=== PATIENT | female | born 1965 | race Caucasian/White ===

== ENCOUNTER 2016-09-21 16:02 | Emergency (ER) | payer MEDICARE, MEDICAID ==
[~2016-09-21 16:02] MED LIST: /ADVA50050 INH; /AUGM875TA OR; ACET500C; ACET65TA; ADV250INH INH; ADVAIR INH; ADVAIR PO; ADVAIR100 INHALATION; ALBU0.084 INH; ALBUTEROL INH; ALBUTEROL INHALATION; ALLEGRA-D PL; ALLEGRA180 PO; AMO500 PO; AZAT5TAB PO; BACT400T PO; CALC0.5C OR; CALCIUM ACETATE; CARVEDILOL PO; CHOLECALCIFEROL PO; CINA30TA PO; CLAR5CHW OR; CLARINEX PO; CLARITAN PO; CLARITIN10 PO; CORE3.12 OR; CYMB60CA3 PO; DIFL50TA; DOCU100C PO; DRIS50002 PO; FERR325T3 PO; FEXO30TA OR; FLORCAP10 PO; FLOVENT110 PO; HYDR10TA13 PO; IRON GLYCINATE PO; K-PHTAB2 PO; LEVOCETIRIZINE PO; LIDO4SO TOP; LYRI300C PO; MAGN400T5 PO; MELA0.02 PO; MULT1TAB8 PO; MULTTAB4 PO; MYLI40DR OR; NASONEX NASAL; OXYC-517 PO; OXYC1TAB15 PO; PAIN325T OR; PANT40TA2 PO; PERC7.5T8 OR; PHOS1TAB3 PO; PHOSLO667 MG; PHOSLO667 MG OR; PHOSLO667 MG PO; PREDNISO50 PO; PROVENTILI PO; RANI15TA PO; SENN8.6C PO; SEPT400T; SERT50TA2 OR; SEVE80TAB PO; SODI650T PO; SOMA350T OR; SUDA30TA OR; SUDOGEST PO; SYMB80INH INH; TACR1CAP3 PO; TACR5CAP4 PO; TIZA4CAP3 PO; TIZANIDINE PO; TYLENOL #3; VALG1TAB PO; VENTAER IN; VENTOLIN ROTAHALER INH; VENTOLININ INHALATION; VICO5TAB OR; VICO5TAB PO; VIT D 4000 PO; VITA10002 PO; VITA500047 PO; VITAMIN D PO; VITATAB11 PO; ZOLO100T OR; ZYRTEC10 PO; colace; colace PO; percocet PO; senekot PO
[2016-09-21] MEDS ORDERED: MORPHINE 4 MG/ML 1ML SYRINGE As Ordered ONE (17:56)
[2016-09-21] MEDS ORDERED: ONDANSETRON 4MG/2ML VIAL (J2405) As Ordered ONE (17:57)
[2016-09-21 18:23] LABS: MEAN CORPUSCULAR HEMOGLOBIN 28.6 pg (27.0-33.0); MEAN CORPUSCULAR VOLUME 89.4 fl (80.0-96.0); RED CELL DISTRIBUTION WIDTH 14.9 % (11.5-14.5); WHITE BLOOD COUNT 9.3 K/mm3 (4.0-10.0)
[2016-09-21 18:32] LABS: ALBUMIN 3.3 GM/DL (3.2-5.2); ALBUMIN/GLOBULIN RATIO 0.94 (1.00-1.93); BILIRUBIN,DIRECT 0.2 MG/DL (0.0-0.2); BILIRUBIN,TOTAL 0.3 MG/DL (0.2-1.0); CALCIUM LEVEL 8.4 MG/DL (8.5-10.1); CREATININE FOR GFR 1.56 MG/DL (0.55-1.02); GLOMERULAR FILTRATION RATE 37.4 (>51); POTASSIUM SERUM 3.9 MEQ/L (3.5-5.1); TOTAL PROTEIN 6.8 GM/DL (6.4-8.2)
[2016-09-21] MEDS ORDERED: CIPROFLOXACIN/D5W 400 MG/200 ML BAG (J0744) As Ordered ONE (19:00)
--- NOTE | 2016-09-21 19:31 | REP ---
CT abdomen and pelvis without contrast 09/21/2016: Clinical history: Biliary colic. The patient states right-sided abdominal pain. She is status post renal transplant and repair of the right spigelian hernia. Comparison: CT scan 09/26/2015. Technique: noncontrast images with coronal and sagittal reconstructions provided. CT abdomen: Lung bases show minimal linear atelectatic or fibrotic change lateral aspect left lower lobe but were otherwise clear. Heart not enlarged and no pericardial thickening or effusion. Liver is homogeneous and not enlarged and shows no hepatic mass or biliary dilatation. No splenomegaly or focal lesion. No ascites in the upper abdomen. Gallbladder is partially distended with transverse diameter of 5.1 cm. Length is at least 9 cm. There is no calcified gallstone. At the surgical site for prior spigelian hernia repair, there is soft tissue density abutting the hepatic flexure arising from it suggesting inflammatory change. The oblique muscles show infiltration and edema in all this is less prominent than on the CT in the 2016 a where there was evidence for a phlegmon and abscess in this region. I do not see air bubbles to suggest a perforation or definite abscess. No free air noted is noted in the abdomen and pelvis on lung window review of all CT slice levels. Pancreas shows no ductal dilatation. Has a few scattered calcifications which may reflect prior chronic pancreatitis. Adrenal glands are normal. Severely atrophic right kidney with left kidney absent. The adrenal glands intact are. Lobulated right renal cortex with significant scarring. No hydronephrosis, hydroureter or ureteral stone. Abundant stool in the right colon to hepatic flexure with scattered gas and small amounts of stool transverse colon with left colon with mild stool. No dilated small bowel loops. The aorta is without aneurysm and no periaortic or other retroperitoneal pathologic sized lymphadenopathy . There is a transplant kidney in the upper right pelvis low-lying on the psoas muscle. Surgical clips in similar position previous. No gross hydronephrosis. Pelvis: Better distended than on the previous study. No definite stones or postsurgical changes in the suprapubic region with surgical clips and scarring. Uterus is tilted towards the right and not grossly enlarged. The left ovary has a 2.7 cm cyst. Right ovary shows a dominant follicle about 2 cm. Distal left colon and sigmoid were unremarkable. There is no sign of colitis or diverticulitis in the left colon, sigmoid and rectum. There is no ventral hernia and no inguinal hernia but prior surgery in both inguinal regions noted. The bone windows show degenerative changes of the hips, SI joints, lumbar lower thoracic spine to a mild degree. There is bilateral spondylolysis at L5 with grade 2 spondylolisthesis of L5 upon S1, nearly grade 3. Impression: 1. A distended gallbladder without calcified gallstones. It measures at least 9.1 x 5.1 cm. No pericholecystic fluid or mass. Liver and spleen not enlarged. No biliary dilatation or ascites. 2. Inflammatory changes in the fat adjacent to the hepatic flexure and abutting the deep fascial covering of the oblique muscles that may be inflammatory change from colitis or other mass or phlegmon. I do not see air bubbles to suggest abscess. This is a much less severe appearance than 1 year ago when there was a phlegmon and abscess clearly present. 3. A transplant kidney in the right pelvis without hydronephrosis. Bilateral L5 spondylolysis with grade II spondylolisthesis. Signed by Darci Thomas MD 09/21/2016 08:06 P
--- NOTE | 2016-09-21 20:20 | EDDOCDS ---
Physician Documentation [facility] Name: Micki Dickens Age: 50 yrs Sex: Female : 1965 Arrival Date: 09/21/2016 Time: 16:02 Bed I4 / M4 Private MD: Armando Root A. Disposition: 09/21/16 19:34 Discharged to Home/Self Care. Impression: Urinary tract infection, site not specified - pyelonephritis. - Condition is Stable. - Discharge Instructions: Urinary Tract Infection. - Prescriptions for Cipro 500 mg Oral Tablet - take 1 tablet by ORAL route every 12 hours; 14 tablet. Zofran 4 mg Oral Tablet - take 1 tablet by ORAL route 4 times per day As needed; 10 tablet. - Medication Reconciliation, Local Pharmacy Hours form. - Follow up: Armando Root; When: 2 - 3 days; Reason: Recheck today's complaints, Continuance of care. - Problem is an ongoing problem. - Symptoms are unchanged. Historical: - Allergies: no known allergies; - Home Meds: 1. tacrolimus 5 mg oral cap 6 mg every 12 hours (Last dose: 09/21/2016 08:00) 2. azathioprine 50 mg Oral tab 2 tabs once daily (Last dose: 09/21/2016 08:00) 3. sensipar inahler daily out 4. ferrous sulfate 325 mg (65 mg iron) Oral TbEC daily (Last dose: 09/21/2016 08:00) 5. Vitamin D Oral 18257 unit Mon and Fri (Last dose: 09/21/2016 08:00) 6. Vitamin B-12 1,000 mcg Oral tab daily (Last dose: 09/21/2016 08:00) 7. ranitidine HCl 150 mg Oral cap 1 cap 2 times per day (Last dose: 09/21/2016 08:00) 8. L-Mcaz-Wtqgkbo 155-852-130 mg BID Oral (Last dose: 09/21/2016 08:00) 9. multivitamin Oral tab 1 tab daily (Last dose: 09/21/2016 08:00) 10. sodium bicarbonate 650 mg Oral tab three times a day (Last dose: 09/21/2016 08:00) 11. duloxetine 60 mg Oral cpDR 1 cap once daily (Last dose: 09/21/2016 08:00) 12. pregabalin 150 mg oral cap 2 times per day (Last dose: 09/21/2016 08:00) 13. tizanidine 4 mg oral tab 1 tab as needed (Last dose: 09/21/2016 08:00) 14. tacrolimus 1 mg oral cap every 12 hours 15. melatonin 3 mg Oral tab (Last dose: Unknown) 16. oxycodone 5 mg Oral tab 1 tab every 4h as needed 17. oxycodone-acetaminophen 7.5-325 mg Oral tab 1 tab every 6 hours (Last dose: 09/21/2016 14:30) 18. docusate sodium 100 mg Oral tab 1 tab 2 times per day (Last dose: Unknown) 19. magnesium oxide 400 mg Oral cap twice a day (Last dose: 09/21/2016 10:00) 20. budeesonide-fomoterol 80-4.5-2 puffs BID (Last dose: 09/21/2016 08:00) - PMHx: MRSA; Hypertension; Depression; Asthma; - PSHx: Kidney stents; Laparoscopy; ankle surgery; Hernia repair- Incisional; kidney transplant --right side; - Social history: Smoking status: Patient states was never smoker of tobacco. Patient/guardian denies using alcohol, street drugs, No barriers to communication noted, The patient speaks fluent Korean, Speaks appropriately for age. - Family history: Not pertinent. - : The pt / caregiver states he / she is not on anticoagulants. Home medication list is obtained from the patient. - Exposure Risk Screening:: None identified. 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 4 in. (162.56 cm); Pain 10/10; 18:47 BP 127 / 58; Pulse 84; Resp 16; Temp 96.8(O); Pulse Ox 99% on R/A; Pain 5/10; jrd 20:17 BP 116 / 66; Pulse 85; Resp 17; Temp 97(O); Pulse Ox 97% ; mb9 16:03 Body Mass Index 35.36 (93.44 kg, 162.56 cm) cmb MDM: 17:38 IV Saline Lock ordered. ke 17:38 NS 0.9% 1000 ml IV at 100 mL/hr continuous ordered. ke 17:38 Ondansetron 4 mg IVP once ordered. ke 17:38 morphine 4 mg IVP once ordered. ke 17:39 CBC Ordered. EDMS 17:39 BMP Ordered. EDMS 17:39 UA Ordered. EDMS 17:39 CT ABD & PELVIS: No Contrast Ordered. EDMS 18:00 Financial registration complete. gjb 18:01 Undo -Financial registration. gjb 18:06 LIVER PROFILE Ordered. EDMS 18:26 Financial registration complete. gjb 18:28 [place] [place] was [place] into [employer] and attached to record. gjb 18:42 CBC Reviewed. ke 18:42 BMP Reviewed. ke 18:42 UA Reviewed. ke 18:42 LIVER PROFILE Reviewed. ke 18:43 Ciprofloxacin 400 mg IVPB at 200 mL/hr once over 60 mins ordered. ke Administered Medications: 18:06 Drug: Ondansetron 4 mg [ondansetron HCl 2 mg/mL intravenous solution (2 mL)] Route: kc3 IVP; Site: right antecubital; 18:06 Drug: morphine 4 mg [morphine 4 mg/mL intravenous cartridge (1 mL)] Route: IVP; Site: kc3 right antecubital; 18:07 Drug: NS 0.9% 1000 ml [sodium chloride 0.9 % intravenous solution] Route: IV; Rate: 100 kc3 mL/hr; Site: right antecubital; 19:06 Drug: Ciprofloxacin 400 mg [ciprofloxacin 400 mg/200 mL in 5 % dextrose intravenous ck1 piggyback] Route: IVPB; Rate: 200 mL/hr; Infused Over: 60 mins; Site: right antecubital; 20:16 Follow up: IV Intake: 200ml mb9 Signatures: Dispatcher [employer] EDMS Ahsan Burgess, SEARCH CONSULTANT SEARCH CONSULTANT Lucía UlloaRN RN ck1 Josie Banegas RN RN ttb Bhanu Orona RN RN mb9 Madai Tinocob Elvi Mayes RN kc3 The chart was reviewed and I authenticate all verbal orders and agree with the evaluation and treatment provided.Corrections: (The following items were deleted from the chart) 18:06 17:40 LIVER PROFILE+LAB ordered. EDMS EDMS Attachments: 18:28 [place] Payment Agreement gjb MTDD
--- NOTE | 2016-09-21 20:20 | EDDOCDS ---
Nurse's Notes [facility] Name: Micki Dickens Age: 50 yrs Sex: Female : 1965 Arrival Date: 09/21/2016 Time: 16:02 Bed I4 / M4 Private MD: Armando Root A. Diagnosis: Urinary tract infection, site not specified-pyelonephritis Presentation: 09/21 16:29 Presenting complaint: Patient states: right sided flank pain today. "on and off pain x3 ttb months but constant today". CT scheduled for Monday, but "my pain pills aren't taking care of the pain now". Denies urinary changes. Denies n/d/v. States some constipation. R-renal transplant 1 year ago. Acute neurological deficits are not present. Mechanism of Injury: No Mechanism of Injury. Adult Sepsis Screening: The patient does not have new or worsening altered mentation. Patient's respiratory rate is less than 22. Systolic blood pressure is greater than 100. Patient has a qSOFA score of 0- Negative Sepsis Screen. Suicide/Homicide risk assessment- the patient denies having any suicidal and/or homicidal ideations and does not present with any other emotional, behavioral or mental health complaints. Status: Patient is not a environmental services technician or dependent. Transition of care: patient was not received from another setting of care. 16:29 Acuity: MADALYN Level 3 ttb 16:29 Method Of Arrival: Walkin/Carried/Asstd ttb Triage Assessment: 16:38 General: Appears in no apparent distress, well nourished, well groomed, Behavior is ttb appropriate for age, cooperative, pleasant. Pain: Location: right flank Pain currently is 9 out of 10 on a pain scale. HIV screening NA for this visit Offered previously. Neurological: Level of Consciousness is awake, alert. Cardiovascular: Chest pain is denied. Respiratory: No deficits noted. Airway is patent Denies cough, shortness of breath. GI: Reports constipation, Denies diarrhea, nausea, vomiting. : Denies burning with urination, urinary frequency, urgency. Derm: Skin is normal. Musculoskeletal: Range of motion intact in all extremities. 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 tacrolimus 5 mg oral cap 6 mg every 12 hours (Last dose: 09/21/2016 08:00) 2. azathioprine 50 mg Oral tab 2 tabs once daily (Last dose: 09/21/2016 08:00) 3. sensipar inahler daily out 4. ferrous sulfate 325 mg (65 mg iron) Oral TbEC daily (Last dose: 09/21/2016 08:00) 5. Vitamin D Oral 69586 unit Mon and Fri (Last dose: 09/21/2016 08:00) 6. Vitamin B-12 1,000 mcg Oral tab daily (Last dose: 09/21/2016 08:00) 7. ranitidine HCl 150 mg Oral cap 1 cap 2 times per day (Last dose: 09/21/2016 08:00) 8. K-Adxn-Zrtwglw 155-852-130 mg BID Oral (Last dose: 09/21/2016 08:00) 9. multivitamin Oral tab 1 tab daily (Last dose: 09/21/2016 08:00) 10. sodium bicarbonate 650 mg Oral tab three times a day (Last dose: 09/21/2016 08:00) 11. duloxetine 60 mg Oral cpDR 1 cap once daily (Last dose: 09/21/2016 08:00) 12. pregabalin 150 mg oral cap 2 times per day (Last dose: 09/21/2016 08:00) 13. tizanidine 4 mg oral tab 1 tab as needed (Last dose: 09/21/2016 08:00) 14. tacrolimus 1 mg oral cap every 12 hours 15. melatonin 3 mg Oral tab (Last dose: Unknown) 16. oxycodone 5 mg Oral tab 1 tab every 4h as needed 17. oxycodone-acetaminophen 7.5-325 mg Oral tab 1 tab every 6 hours (Last dose: 09/21/2016 14:30) 18. docusate sodium 100 mg Oral tab 1 tab 2 times per day (Last dose: Unknown) 19. magnesium oxide 400 mg Oral cap twice a day (Last dose: 09/21/2016 10:00) 20. budeesonide-fomoterol 80-4.5-2 puffs BID (Last dose: 09/21/2016 08:00) - PMHx: MRSA; Hypertension; Depression; Asthma; - PSHx: Kidney stents; Laparoscopy; ankle surgery; Hernia repair- Incisional; kidney transplant --right side; - Social history: Smoking status: Patient states was never smoker of tobacco. Patient/guardian denies using alcohol, street drugs, No barriers to communication noted, The patient speaks fluent Serbian, Speaks appropriately for age. - Family history: Not pertinent. - : The pt / caregiver states he / she is not on anticoagulants. Home medication list is obtained from the patient. - Exposure Risk Screening:: None identified. Screenin:02 Screening information is obtained from the patient. Fall risk: No risks identified. ck1 Assistance ADL's: requires no assistance with activities of daily living. Abuse/DV Screen: The patient / caregiver reports he/she is: not in a situation that causes fear, pain or injury. Nutritional screening: No deficits noted. Advance Directives: Currently, there is no health care proxy. home support is adequate. Assessment: 18:02 General: Appears in no apparent distress, comfortable, Behavior is appropriate for age, ck1 cooperative. Pain: Location: right lower quadrant Pain currently is 6 out of 10 on a pain scale. Neurological: Level of Consciousness is awake, alert, obeys commands, Oriented to person, place, time. Respiratory: Respiratory effort is unlabored, Respiratory pattern is regular, symmetrical. GI: Denies nausea, vomiting. : Urine is cloudy. Derm: Skin is intact, is healthy with good turgor, Skin is pink, warm & dry. Musculoskeletal: Circulation, motion, and sensation intact Range of motion intact in all extremities. 19:06 General: Appears in no apparent distress, comfortable, Behavior is appropriate for age, ck1 cooperative. Pain: Location: right lower quadrant Pain currently is 5 out of 10 on a pain scale. Neurological: Level of Consciousness is awake, alert, obeys commands, Oriented to person, place, time. Respiratory: Respiratory effort is unlabored, Respiratory pattern is regular, symmetrical. GI: Denies nausea, vomiting. Derm: Skin is pink, warm & dry. Musculoskeletal: Circulation, motion, and sensation intact Range of motion intact in all extremities. Vital Signs: 16:03 BP 136 / 73; Pulse 98; Resp 16; Temp 98.3(O); Pulse Ox 98% ; Weight 93.44 kg; Height 5 cmb ft. 4 in. (162.56 cm); Pain 10/10; 18:47 BP 127 / 58; Pulse 84; Resp 16; Temp 96.8(O); Pulse Ox 99% on R/A; Pain 5/10; jrd 20:17 BP 116 / 66; Pulse 85; Resp 17; Temp 97(O); Pulse Ox 97% ; mb9 16:03 Body Mass Index 35.36 (93.44 kg, 162.56 cm) cmb Vitals: 16:03 Log In Time: September 21, 2016 at 16:02. cmb ED Course: 16:03 Patient visited by Nimisha Caban. cmb 16:03 Armando Root is Private Physician. cmb 16:03 Patient moved to Waiting cmb 16:04 Patient moved to Pre RCE cmb 16:31 Triage Initiated ttb 16:39 Patient visited by Josie Banegas RN. ttb 17:08 Patient moved to Triage 1 jf3 17:22 [facility] ke 17:22 Patient visited by Ahsan Burgess FNP. ke 17:22 Patient visited by Ahsan Burgess FNP. ke 17:41 Patient moved to I4 / M4 jf3 17:52 Patient visited by Lucía Juárez,KAM. ck1 18:02 The patient / caregiver is instructed regarding the plan of care and ED course. ck1 18:02 UA Sent. ck1 18:02 BMP Sent. ck1 18:02 CBC Sent. ck1 18:02 Inserted saline lock: 20 gauge in right antecubital area and blood collected. The ck1 patient tolerated the procedure well. 18:07 Patient visited by Elvi Mayes RN. kc3 18:07 LIVER PROFILE Sent. kc3 18:28 [facility] Payment Agreement was scanned into [employer] and attached to record. gjb 18:38 Patient visited by Lucía Juárez,KAM. ck1 18:47 Patient visited by Nishant Mcgraw PCA. jrd 19:07 No procedures done that require assistance. ck1 19:18 Patient visited by Ahsan Burgess FNP. ke 19:32 Armando Root is Referral Physician. ke Administered Medications: 18:06 Drug: Ondansetron 4 mg [ondansetron HCl 2 mg/mL intravenous solution (2 mL)] Route: kc3 IVP; Site: right antecubital; 18:06 Drug: morphine 4 mg [morphine 4 mg/mL intravenous cartridge (1 mL)] Route: IVP; Site: kc3 right antecubital; 18:07 Drug: NS 0.9% 1000 ml [sodium chloride 0.9 % intravenous solution] Route: IV; Rate: 100 kc3 mL/hr; Site: right antecubital; 19:06 Drug: Ciprofloxacin 400 mg [ciprofloxacin 400 mg/200 mL in 5 % dextrose intravenous ck1 piggyback] Route: IVPB; Rate: 200 mL/hr; Infused Over: 60 mins; Site: right antecubital; 20:16 Follow up: IV Intake: 200ml mb9 Intake: 20:16 IV: 200.00ml; Total: 200.00ml. mb9 Order Results: Lab Order: CBC; SPEC'M 09/21/16 18:00 Test: WHITE BLOOD COUNT; Value: 9.3; Range: 4.0-10.0; Units: K/mm3; Status: F Test: RED BLOOD COUNT; Value: 3.66; Range: 4.00-5.40; Abnormal: Below low normal; Units: M/mm3; Status: F Test: HEMOGLOBIN; Value: 10.5; Range: 12.0-16.0; Abnormal: Below low normal; Units: g/dl; Status: F Test: HEMATOCRIT; Value: 32.8; Range: 36.0-47.0; Abnormal: Below low normal; Units: %; Status: F Test: MEAN CORPUSCULAR VOLUME; Value: 89.4; Range: 80.0-96.0; Units: fl; Status: F Test: MEAN CORPUSCULAR HEMOGLOBIN; Value: 28.6; Range: 27.0-33.0; Units: pg; Status: F Test: MEAN CORPUSCULAR HGB CONC; Value: 32.0; Range: 32.0-36.5; Units: g/dl; Status: F Test: RED CELL DISTRIBUTION WIDTH; Value: 14.9; Range: 11.5-14.5; Abnormal: Above high normal; Units: %; Status: F Test: PLATELET COUNT, AUTOMATED; Value: 216; Range: 150-450; Units: k/mm3; Status: F Lab Order: BMP; SPEC'M 09/21/16 18:00 Test: GLUCOSE, FASTING; Value: 143; Range: 70-105; Abnormal: Above high normal; Units: MG/DL; Status: F Test: BLOOD UREA NITROGEN; Value: 25; Range: 7-18; Abnormal: Above high normal; Units: MG/DL; Status: F Test: CREATININE FOR GFR; Value: 1.56; Range: 0.55-1.02; Abnormal: Above high normal; Units: MG/DL; Status: F Test: GLOMERULAR FILTRATION RATE; Value: 37.4; Range: >51; Abnormal: Below low normal; Status: F Test: SODIUM LEVEL; Value: 137; Range: 136-145; Units: MEQ/L; Status: F Test: POTASSIUM SERUM; Value: 3.9; Range: 3.5-5.1; Units: MEQ/L; Status: F Test: CHLORIDE LEVEL; Value: 102; Range: 98-107; Units: MEQ/L; Status: F Test: CARBON DIOXIDE LEVEL; Value: 27; Range: 21-32; Units: MEQ/L; Status: F Test: ANION GAP; Value: 8; Range: 8-16; Units: MEQ/L; Status: F Test: CALCIUM LEVEL; Value: 8.4; Range: 8.5-10.1; Abnormal: Below low normal; Units: MG/DL; Status: F Test Note: ; Units are mL/min/1.73 m2 Chronic Kidney Disease Staging per NKF: Stage I & II GFR >=60 Normal to Mildly Decreased Stage III GFR 30-59 Moderately Decreased Stage IV GFR 15-29 Severely Decreased Stage V GFR <15 Very Little GFR Left ESRD GFR <15 on INSPECTOR SUBASSEMBLIES Lab Order: UA; SPEC'M 09/21/16 18:00 Test: APPEARANCE, URINE; Value: CLOUDY; Range: CLEAR; Abnormal: Above high normal; Status: F Test: COLOR, URINE; Value: MISAEL; Range: YELLOW; Status: F Test: PH,URINE; Value: 5.0; Range: 5.0-9.0; Units: UNITS; Status: F Test: SPECIFIC GRAVITY URINE AUTO; Value: 1.014; Range: 1.002-1.035; Status: F Test: PROTEIN, URINE AUTO; Value: 1+; Range: NEGATIVE; Abnormal: Above high normal; Units: mg/dL; Status: F Test: GLUCOSE, URINE (UA) AUTO; Value: NEGATIVE; Range: NEGATIVE; Units: mg/dL; Status: F Test: KETONE, URINE AUTO; Value: NEGATIVE; Range: NEGATIVE; Units: mg/dL; Status: F Test: UROBILINOGEN, URINE AUTO; Value: 0.2; Range: 0.0-2.0; Units: mg/dL; Status: F Test: BILIRUBIN, URINE AUTO; Value: NEGATIVE; Range: NEGATIVE; Status: F Test: NITRITE, URINE AUTO; Value: NEGATIVE; Range: NEGATIVE; Status: F Test: LEUKOCYTE ESTERASE, URINE AUTO; Value: 3+; Range: NEGATIVE; Abnormal: Above high normal; Status: F Test: BLOOD, URINE BLOOD; Value: NEGATIVE; Range: NEGATIVE; Status: F Test: WBC, URINE AUTO; Value: TNTC; Range: 0-3; Abnormal: Above high normal; Units: /HPF; Status: F Test: RBC, URINE AUTO; Value: 9; Range: 0-3; Abnormal: Above high normal; Units: /HPF; Status: F Test: BACTERIA, URINE AUTO; Value: 3+; Range: NEGATIVE; Abnormal: Above high normal; Status: F Test: SQUAMOUS EPITHELIAL CELL UR AU; Value: 4; Range: 0-6; Units: /HPF; Status: F Test: MUCUS, URINE; Value: SMALL; Range: NEGATIVE; Status: F Test: HYALINE CAST, URINE AUTO; Value: 0; Range: 0-1; Units: /LPF; Status: F Test: AMORPHOUS SEDIMENT; Value: SMALL; Range: NEGATIVE; Abnormal: Above high normal; Status: F Lab Order: LIVER PROFILE; SPEC'M 09/21/16 18:00 Test: AST/SGOT; Value: 34; Range: 15-37; Units: U/L; Status: F Test: ALT/SGPT; Value: 27; Range: 12-78; Units: U/L; Status: F Test: ALKALINE PHOSPHATASE; Value: 314; Range: 45-117; Abnormal: Above high normal; Units: U/L; Status: F Test: BILIRUBIN,TOTAL; Value: 0.3; Range: 0.2-1.0; Units: MG/DL; Status: F Test: BILIRUBIN,DIRECT; Value: 0.2; Range: 0.0-0.2; Units: MG/DL; Status: F Test: TOTAL PROTEIN; Value: 6.8; Range: 6.4-8.2; Units: GM/DL; Status: F Test: ALBUMIN; Value: 3.3; Range: 3.2-5.2; Units: GM/DL; Status: F Test: ALBUMIN/GLOBULIN RATIO; Value: 0.94; Range: 1.00-1.93; Abnormal: Below low normal; Status: F Outcome: 19:07 CT Study completed. ck1 19:34 Discharge ordered by Provider. ke 20:17 Discharge Assessment: Patient awake, alert and oriented x 3. No cognitive and/or mb9 functional deficits noted. Patient verbalized understanding of disposition instructions. patient administered narcotics - no. The following High Risk Discharge criteria are identified: None. Discharged to home ambulatory, with friend. Condition: good Condition: stable Condition: improved. Discharge instructions given to patient, Instructed on discharge instructions, follow up and referral plans. medication usage, Demonstrated understanding of instructions, medications, Pt was receptive of discharge instructions/ teaching. Prescriptions given X 2. Property :Personal belongings accompany Pt. 20:19 Patient left the ED. mb9 Signatures: Ahsan Burgess, METAL COATER METAL COATER Lucía Ulloa,RN RN ck1 Nimisha Caban Teresa, RN RN ttb Nishant Mcgraw, [employer] COMPUTER SYSTEMS INFORMATION DIRECTOR Bhanu Gabriel,RN RN mb9 Elvi Mayes,RN RN maximo3 Ranjeet Arana,RN RN jf3 Madai Tinoco Corrections: (The following items were deleted from the chart) 18:06 18:02 LIVER PROFILE+LAB sent. ck1 EDMS MTDD
--- NOTE | 2016-09-23 21:20 | EDDOCDS ---
Physician Documentation [facility] Name: Micki Dickens Age: 50 yrs Sex: Female : 1965 Arrival Date: 09/21/2016 Time: 16:02 Bed I4 / M4 Private MD: Armando Nesbitt A. Disposition: 09/21/16 19:34 Discharged to Home/Self Care. Impression: Urinary tract infection, site not specified - pyelonephritis. - Condition is Stable. - Discharge Instructions: Urinary Tract Infection. - Prescriptions for Cipro 500 mg Oral Tablet - take 1 tablet by ORAL route every 12 hours; 14 tablet. Zofran 4 mg Oral Tablet - take 1 tablet by ORAL route 4 times per day As needed; 10 tablet. - Medication Reconciliation, Local Pharmacy Hours form. - Follow up: Armando Nesbitt; When: 2 - 3 days; Reason: Recheck today's complaints, Continuance of care. - Problem is an ongoing problem. - Symptoms are unchanged. Historical: - Allergies: no known allergies; - Home Meds: 1. tacrolimus 5 mg oral cap 6 mg every 12 hours (Last dose: 09/21/2016 08:00) 2. azathioprine 50 mg Oral tab 2 tabs once daily (Last dose: 09/21/2016 08:00) 3. sensipar inahler daily out 4. ferrous sulfate 325 mg (65 mg iron) Oral TbEC daily (Last dose: 09/21/2016 08:00) 5. Vitamin D Oral 54472 unit Mon and Fri (Last dose: 09/21/2016 08:00) 6. Vitamin B-12 1,000 mcg Oral tab daily (Last dose: 09/21/2016 08:00) 7. ranitidine HCl 150 mg Oral cap 1 cap 2 times per day (Last dose: 09/21/2016 08:00) 8. V-Besh-Smudhcj 155-852-130 mg BID Oral (Last dose: 09/21/2016 08:00) 9. multivitamin Oral tab 1 tab daily (Last dose: 09/21/2016 08:00) 10. sodium bicarbonate 650 mg Oral tab three times a day (Last dose: 09/21/2016 08:00) 11. duloxetine 60 mg Oral cpDR 1 cap once daily (Last dose: 09/21/2016 08:00) 12. pregabalin 150 mg oral cap 2 times per day (Last dose: 09/21/2016 08:00) 13. tizanidine 4 mg oral tab 1 tab as needed (Last dose: 09/21/2016 08:00) 14. tacrolimus 1 mg oral cap every 12 hours 15. melatonin 3 mg Oral tab (Last dose: Unknown) 16. oxycodone 5 mg Oral tab 1 tab every 4h as needed 17. oxycodone-acetaminophen 7.5-325 mg Oral tab 1 tab every 6 hours (Last dose: 09/21/2016 14:30) 18. docusate sodium 100 mg Oral tab 1 tab 2 times per day (Last dose: Unknown) 19. magnesium oxide 400 mg Oral cap twice a day (Last dose: 09/21/2016 10:00) 20. budeesonide-fomoterol 80-4.5-2 puffs BID (Last dose: 09/21/2016 08:00) - PMHx: MRSA; Hypertension; Depression; Asthma; - PSHx: Kidney stents; Laparoscopy; ankle surgery; Hernia repair- Incisional; kidney transplant --right side; - Social history: Smoking status: Patient states was never smoker of tobacco. Patient/guardian denies using alcohol, street drugs, No barriers to communication noted, The patient speaks fluent Divehi, Speaks appropriately for age. - Family history: Not pertinent. - : The pt / caregiver states he / she is not on anticoagulants. Home medication list is obtained from the patient. - Exposure Risk Screening:: None identified. STAFF COUNSEL: 09/21 16:38 LMP 08/30/2016 ttb Vital Signs: 16:03 BP 136 / 73; Pulse 98; Resp 16; Temp 98.3(O); Pulse Ox 98% ; Weight 93.44 kg / 206 lbs; cmb Height 5 ft. 4 in. (162.56 cm); Pain 10/10; 18:47 BP 127 / 58; Pulse 84; Resp 16; Temp 96.8(O); Pulse Ox 99% on R/A; Pain 5/10; jrd 20:17 BP 116 / 66; Pulse 85; Resp 17; Temp 97(O); Pulse Ox 97% ; mb9 16:03 Body Mass Index 35.36 (93.44 kg, 162.56 cm) cmb MDM: 17:38 IV Saline Lock ordered. ke 17:38 NS 0.9% 1000 ml IV at 100 mL/hr continuous ordered. ke 17:38 Ondansetron 4 mg IVP once ordered. ke 17:38 morphine 4 mg IVP once ordered. ke 17:39 CBC Ordered. EDMS 17:39 BMP Ordered. EDMS 17:39 UA Ordered. EDMS 17:39 CT ABD & PELVIS: No Contrast Ordered. EDMS 18:00 Financial registration complete. gjb 18:01 Undo -Financial registration. gjb 18:06 LIVER PROFILE Ordered. EDMS 18:26 Financial registration complete. gjb 18:28 [facility] [place] Agreement was scanned into [employer] and attached to record. gjb 18:42 CBC Reviewed. ke 18:42 BMP Reviewed. ke 18:42 UA Reviewed. ke 18:42 LIVER PROFILE Reviewed. ke 18:43 Ciprofloxacin 400 mg IVPB at 200 mL/hr once over 60 mins ordered. ke 09/22 10:11 T-Sheet-- Draft Copy was scanned into [employer] and attached to record. gb 13:08 ED course: dr nesbitt faxed formal report of ct abd/p for fu mlg. ml Administered Medications: 09/21 18:06 Drug: Ondansetron 4 mg [ondansetron HCl 2 mg/mL intravenous solution (2 mL)] Route: kc3 IVP; Site: right antecubital; 18:06 Drug: morphine 4 mg [morphine 4 mg/mL intravenous cartridge (1 mL)] Route: IVP; Site: kc3 right antecubital; 18:07 Drug: NS 0.9% 1000 ml [sodium chloride 0.9 % intravenous solution] Route: IV; Rate: 100 kc3 mL/hr; Site: right antecubital; 19:06 Drug: Ciprofloxacin 400 mg [ciprofloxacin 400 mg/200 mL in 5 % dextrose intravenous ck1 piggyback] Route: IVPB; Rate: 200 mL/hr; Infused Over: 60 mins; Site: right antecubital; 20:16 Follow up: IV Intake: 200ml mb9 Signatures: Dispatcher [employer] EDMS Cuate Magaña MD MD ml Rebecca Sanders, Reg Reg gb Ahsan Burgess, MACHINE FEEDER RAW STOCK MACHINE FEEDER RAW STOCK Lucía Ulloa RN RN ck1 Josie Banegas RN RN timoteob Bhanu Orona RN RN mb9 Madai Tinoco Elvi Pop RN kc3 The chart was reviewed and I authenticate all verbal orders and agree with the evaluation and treatment provided.Corrections: (The following items were deleted from the chart) 18:06 17:40 LIVER PROFILE+LAB ordered. EDMS EDMS Attachments: 18:28 [facility] [place] Payment Agreement gjb 09/22 10:11 T-Sheet-- Draft Copy gb Chart Complete MTDD
--- NOTE | 2016-09-23 21:20 | EDDOCDS ---
Nurse's Notes [facility] Name: Micki Dickens Age: 50 yrs Sex: Female : 1965 Arrival Date: 09/21/2016 Time: 16:02 Bed I4 / M4 Private MD: Armando Root A. Diagnosis: Urinary tract infection, site not specified-pyelonephritis Presentation: 09/21 16:29 Presenting complaint: Patient states: right sided flank pain today. "on and off pain x3 ttb months but constant today". CT scheduled for Monday, but "my pain pills aren't taking care of the pain now". Denies urinary changes. Denies n/d/v. States some constipation. R-renal transplant 1 year ago. Acute neurological deficits are not present. Mechanism of Injury: No Mechanism of Injury. Adult Sepsis Screening: The patient does not have new or worsening altered mentation. Patient's respiratory rate is less than 22. Systolic blood pressure is greater than 100. Patient has a qSOFA score of 0- Negative Sepsis Screen. Suicide/Homicide risk assessment- the patient denies having any suicidal and/or homicidal ideations and does not present with any other emotional, behavioral or mental health complaints. Status: Patient is not a line service person or dependent. Transition of care: patient was not received from another setting of care. 16:29 Acuity: MADALYN Level 3 ttb 16:29 Method Of Arrival: Walkin/Carried/Asstd ttb Triage Assessment: 16:38 General: Appears in no apparent distress, well nourished, well groomed, Behavior is ttb appropriate for age, cooperative, pleasant. Pain: Location: right flank Pain currently is 9 out of 10 on a pain scale. HIV screening NA for this visit Offered previously. Neurological: Level of Consciousness is awake, alert. Cardiovascular: Chest pain is denied. Respiratory: No deficits noted. Airway is patent Denies cough, shortness of breath. GI: Reports constipation, Denies diarrhea, nausea, vomiting. : Denies burning with urination, urinary frequency, urgency. Derm: Skin is normal. Musculoskeletal: Range of motion intact in all extremities. EDUCATIONAL TECHNOLOGY SPECIALIST: 16:38 LMP 08/30/2016 ttb Historical: - Allergies: no known allergies; - Home Meds: 1. tacrolimus 5 mg oral cap 6 mg every 12 hours (Last dose: 09/21/2016 08:00) 2. azathioprine 50 mg Oral tab 2 tabs once daily (Last dose: 09/21/2016 08:00) 3. sensipar inahler daily out 4. ferrous sulfate 325 mg (65 mg iron) Oral TbEC daily (Last dose: 09/21/2016 08:00) 5. Vitamin D Oral 66205 unit Mon and Fri (Last dose: 09/21/2016 08:00) 6. Vitamin B-12 1,000 mcg Oral tab daily (Last dose: 09/21/2016 08:00) 7. ranitidine HCl 150 mg Oral cap 1 cap 2 times per day (Last dose: 09/21/2016 08:00) 8. K-Oblh-Sghcgrg 155-852-130 mg BID Oral (Last dose: 09/21/2016 08:00) 9. multivitamin Oral tab 1 tab daily (Last dose: 09/21/2016 08:00) 10. sodium bicarbonate 650 mg Oral tab three times a day (Last dose: 09/21/2016 08:00) 11. duloxetine 60 mg Oral cpDR 1 cap once daily (Last dose: 09/21/2016 08:00) 12. pregabalin 150 mg oral cap 2 times per day (Last dose: 09/21/2016 08:00) 13. tizanidine 4 mg oral tab 1 tab as needed (Last dose: 09/21/2016 08:00) 14. tacrolimus 1 mg oral cap every 12 hours 15. melatonin 3 mg Oral tab (Last dose: Unknown) 16. oxycodone 5 mg Oral tab 1 tab every 4h as needed 17. oxycodone-acetaminophen 7.5-325 mg Oral tab 1 tab every 6 hours (Last dose: 09/21/2016 14:30) 18. docusate sodium 100 mg Oral tab 1 tab 2 times per day (Last dose: Unknown) 19. magnesium oxide 400 mg Oral cap twice a day (Last dose: 09/21/2016 10:00) 20. budeesonide-fomoterol 80-4.5-2 puffs BID (Last dose: 09/21/2016 08:00) - PMHx: MRSA; Hypertension; Depression; Asthma; - PSHx: Kidney stents; Laparoscopy; ankle surgery; Hernia repair- Incisional; kidney transplant --right side; - Social history: Smoking status: Patient states was never smoker of tobacco. Patient/guardian denies using alcohol, street drugs, No barriers to communication noted, The patient speaks fluent Irish, Speaks appropriately for age. - Family history: Not pertinent. - : The pt / caregiver states he / she is not on anticoagulants. Home medication list is obtained from the patient. - Exposure Risk Screening:: None identified. Screenin:02 Screening information is obtained from the patient. Fall risk: No risks identified. ck1 Assistance ADL's: requires no assistance with activities of daily living. Abuse/DV Screen: The patient / caregiver reports he/she is: not in a situation that causes fear, pain or injury. Nutritional screening: No deficits noted. Advance Directives: Currently, there is no health care proxy. home support is adequate. Assessment: 18:02 General: Appears in no apparent distress, comfortable, Behavior is appropriate for age, ck1 cooperative. Pain: Location: right lower quadrant Pain currently is 6 out of 10 on a pain scale. Neurological: Level of Consciousness is awake, alert, obeys commands, Oriented to person, place, time. Respiratory: Respiratory effort is unlabored, Respiratory pattern is regular, symmetrical. GI: Denies nausea, vomiting. : Urine is cloudy. Derm: Skin is intact, is healthy with good turgor, Skin is pink, warm & dry. Musculoskeletal: Circulation, motion, and sensation intact Range of motion intact in all extremities. 19:06 General: Appears in no apparent distress, comfortable, Behavior is appropriate for age, ck1 cooperative. Pain: Location: right lower quadrant Pain currently is 5 out of 10 on a pain scale. Neurological: Level of Consciousness is awake, alert, obeys commands, Oriented to person, place, time. Respiratory: Respiratory effort is unlabored, Respiratory pattern is regular, symmetrical. GI: Denies nausea, vomiting. Derm: Skin is pink, warm & dry. Musculoskeletal: Circulation, motion, and sensation intact Range of motion intact in all extremities. Vital Signs: 16:03 BP 136 / 73; Pulse 98; Resp 16; Temp 98.3(O); Pulse Ox 98% ; Weight 93.44 kg; Height 5 cmb ft. 4 in. (162.56 cm); Pain 10/10; 18:47 BP 127 / 58; Pulse 84; Resp 16; Temp 96.8(O); Pulse Ox 99% on R/A; Pain 5/10; jrd 20:17 BP 116 / 66; Pulse 85; Resp 17; Temp 97(O); Pulse Ox 97% ; mb9 16:03 Body Mass Index 35.36 (93.44 kg, 162.56 cm) cmb Vitals: 16:03 Log In Time: September 21, 2016 at 16:02. cmb ED Course: 16:03 Patient visited by Nimisha Caban. cmb 16:03 Armando Root is Private Physician. cmb 16:03 Patient moved to Waiting cmb 16:04 Patient moved to Pre RCE cmb 16:31 Triage Initiated ttb 16:39 Patient visited by Josie Banegas, KAM. ttb 17:08 Patient moved to Triage 1 jf3 17:22 [facility]. ke 17:22 Patient visited by Ahsan Burgess FNP. ke 17:22 Patient visited by Ahsan Burgess FNP. ke 17:41 Patient moved to I4 / M4 jf3 17:52 Patient visited by Lucía Juárez,KAM. ck1 18:02 The patient / caregiver is instructed regarding the plan of care and ED course. ck1 18:02 UA Sent. ck1 18:02 BMP Sent. ck1 18:02 CBC Sent. ck1 18:02 Inserted saline lock: 20 gauge in right antecubital area and blood collected. The ck1 patient tolerated the procedure well. 18:07 Patient visited by Elvi Mayes RN. kc3 18:07 LIVER PROFILE Sent. kc3 18:28 [facility] Payment Agreement was scanned into [employer] and attached to record. gjb 18:38 Patient visited by Lucía Juárez,KAM. ck1 18:47 Patient visited by Nishant Mcgraw PCA. jrd 19:07 No procedures done that require assistance. ck1 19:18 Patient visited by Ahsan Burgess FNP. ke 19:32 Armando Root is Referral Physician. ke 20:24 CT ABD & PELVIS: No Contrast Returned. EDMS 09/22 10:11 T-Sheet-- Draft Copy was scanned into [employer] and attached to record. gb Administered Medications: 09/21 18:06 Drug: Ondansetron 4 mg [ondansetron HCl 2 mg/mL intravenous solution (2 mL)] Route: kc3 IVP; Site: right antecubital; 18:06 Drug: morphine 4 mg [morphine 4 mg/mL intravenous cartridge (1 mL)] Route: IVP; Site: kc3 right antecubital; 18:07 Drug: NS 0.9% 1000 ml [sodium chloride 0.9 % intravenous solution] Route: IV; Rate: 100 kc3 mL/hr; Site: right antecubital; 19:06 Drug: Ciprofloxacin 400 mg [ciprofloxacin 400 mg/200 mL in 5 % dextrose intravenous ck1 piggyback] Route: IVPB; Rate: 200 mL/hr; Infused Over: 60 mins; Site: right antecubital; 20:16 Follow up: IV Intake: 200ml mb9 Intake: 20:16 IV: 200.00ml; Total: 200.00ml. mb9 Order Results: Lab Order: CBC; SPEC'M 09/21/16 18:00 Test: WHITE BLOOD COUNT; Value: 9.3; Range: 4.0-10.0; Units: K/mm3; Status: F Test: RED BLOOD COUNT; Value: 3.66; Range: 4.00-5.40; Abnormal: Below low normal; Units: M/mm3; Status: F Test: HEMOGLOBIN; Value: 10.5; Range: 12.0-16.0; Abnormal: Below low normal; Units: g/dl; Status: F Test: HEMATOCRIT; Value: 32.8; Range: 36.0-47.0; Abnormal: Below low normal; Units: %; Status: F Test: MEAN CORPUSCULAR VOLUME; Value: 89.4; Range: 80.0-96.0; Units: fl; Status: F Test: MEAN CORPUSCULAR HEMOGLOBIN; Value: 28.6; Range: 27.0-33.0; Units: pg; Status: F Test: MEAN CORPUSCULAR HGB CONC; Value: 32.0; Range: 32.0-36.5; Units: g/dl; Status: F Test: RED CELL DISTRIBUTION WIDTH; Value: 14.9; Range: 11.5-14.5; Abnormal: Above high normal; Units: %; Status: F Test: PLATELET COUNT, AUTOMATED; Value: 216; Range: 150-450; Units: k/mm3; Status: F Lab Order: [facility]; SPEC'M 09/21/16 18:00 Test: GLUCOSE, FASTING; Value: 143; Range: 70-105; Abnormal: Above high normal; Units: MG/DL; Status: F Test: BLOOD UREA NITROGEN; Value: 25; Range: 7-18; Abnormal: Above high normal; Units: MG/DL; Status: F Test: CREATININE FOR GFR; Value: 1.56; Range: 0.55-1.02; Abnormal: Above high normal; Units: MG/DL; Status: F Test: GLOMERULAR FILTRATION RATE; Value: 37.4; Range: >51; Abnormal: Below low normal; Status: F Test: SODIUM LEVEL; Value: 137; Range: 136-145; Units: MEQ/L; Status: F Test: POTASSIUM SERUM; Value: 3.9; Range: 3.5-5.1; Units: MEQ/L; Status: F Test: CHLORIDE LEVEL; Value: 102; Range: 98-107; Units: MEQ/L; Status: F Test: CARBON DIOXIDE LEVEL; Value: 27; Range: 21-32; Units: MEQ/L; Status: F Test: ANION GAP; Value: 8; Range: 8-16; Units: MEQ/L; Status: F Test: CALCIUM LEVEL; Value: 8.4; Range: 8.5-10.1; Abnormal: Below low normal; Units: MG/DL; Status: F Test Note: ; Units are mL/min/1.73 m2 Chronic Kidney Disease Staging per NKF: Stage I & II GFR >=60 Normal to Mildly Decreased Stage III GFR 30-59 Moderately Decreased Stage IV GFR 15-29 Severely Decreased Stage V GFR <15 Very Little GFR Left ESRD GFR <15 on MIXING ENGINEER Lab Order: ; SPEC'M 09/21/16 18:00 Test: APPEARANCE, URINE; Value: CLOUDY; Range: CLEAR; Abnormal: Above high normal; Status: F Test: COLOR, URINE; Value: MISAEL; Range: YELLOW; Status: F Test: PH,URINE; Value: 5.0; Range: 5.0-9.0; Units: UNITS; Status: F Test: SPECIFIC GRAVITY URINE AUTO; Value: 1.014; Range: 1.002-1.035; Status: F Test: PROTEIN, URINE AUTO; Value: 1+; Range: NEGATIVE; Abnormal: Above high normal; Units: mg/dL; Status: F Test: GLUCOSE, URINE (UA) AUTO; Value: NEGATIVE; Range: NEGATIVE; Units: mg/dL; Status: F Test: KETONE, URINE AUTO; Value: NEGATIVE; Range: NEGATIVE; Units: mg/dL; Status: F Test: UROBILINOGEN, URINE AUTO; Value: 0.2; Range: 0.0-2.0; Units: mg/dL; Status: F Test: BILIRUBIN, URINE AUTO; Value: NEGATIVE; Range: NEGATIVE; Status: F Test: NITRITE, URINE AUTO; Value: NEGATIVE; Range: NEGATIVE; Status: F Test: LEUKOCYTE ESTERASE, URINE AUTO; Value: 3+; Range: NEGATIVE; Abnormal: Above high normal; Status: F Test: BLOOD, URINE BLOOD; Value: NEGATIVE; Range: NEGATIVE; Status: F Test: WBC, URINE AUTO; Value: TNTC; Range: 0-3; Abnormal: Above high normal; Units: /HPF; Status: F Test: RBC, URINE AUTO; Value: 9; Range: 0-3; Abnormal: Above high normal; Units: /HPF; Status: F Test: BACTERIA, URINE AUTO; Value: 3+; Range: NEGATIVE; Abnormal: Above high normal; Status: F Test: SQUAMOUS EPITHELIAL CELL UR AU; Value: 4; Range: 0-6; Units: /HPF; Status: F Test: MUCUS, URINE; Value: SMALL; Range: NEGATIVE; Status: F Test: HYALINE CAST, URINE AUTO; Value: 0; Range: 0-1; Units: /LPF; Status: F Test: AMORPHOUS SEDIMENT; Value: SMALL; Range: NEGATIVE; Abnormal: Above high normal; Status: F Lab Order: LIVER PROFILE; SPEC'M 09/21/16 18:00 Test: AST/SGOT; Value: 34; Range: 15-37; Units: U/L; Status: F Test: ALT/SGPT; Value: 27; Range: 12-78; Units: U/L; Status: F Test: ALKALINE PHOSPHATASE; Value: 314; Range: 45-117; Abnormal: Above high normal; Units: U/L; Status: F Test: BILIRUBIN,TOTAL; Value: 0.3; Range: 0.2-1.0; Units: MG/DL; Status: F Test: BILIRUBIN,DIRECT; Value: 0.2; Range: 0.0-0.2; Units: MG/DL; Status: F Test: TOTAL PROTEIN; Value: 6.8; Range: 6.4-8.2; Units: GM/DL; Status: F Test: ALBUMIN; Value: 3.3; Range: 3.2-5.2; Units: GM/DL; Status: F Test: ALBUMIN/GLOBULIN RATIO; Value: 0.94; Range: 1.00-1.93; Abnormal: Below low normal; Status: F Radiology Order: CT ABD & PELVIS: No Contrast Test: CT ABD & PELVIS: No Contrast REASON FOR EXAMINATION: Biliary Colic; CT abdomen and pelvis without contrast 09/21/2016:; ; Clinical history: Biliary colic. The patient states right-sided abdominal pain.; She is status post renal transplant and repair of the right spigelian hernia.; ; Comparison: CT scan 09/26/2015.; ; Technique: noncontrast images with coronal and sagittal reconstructions provided.; ; ; CT abdomen: Lung bases show minimal linear atelectatic or fibrotic change lateral; aspect left lower lobe but were otherwise clear. Heart not enlarged and no; pericardial thickening or effusion. Liver is homogeneous and not enlarged and; shows no hepatic mass or biliary dilatation. No splenomegaly or focal lesion.; No ascites in the upper abdomen. Gallbladder is partially distended with; transverse diameter of 5.1 cm. Length is at least 9 cm. There is no calcified; gallstone. At the surgical site for prior spigelian hernia repair, there is soft; tissue density abutting the hepatic flexure arising from it suggesting; inflammatory change. The oblique muscles show infiltration and edema in all this; is less prominent than on the CT in the 2016 a where there was evidence for a; phlegmon and abscess in this region. I do not see air bubbles to suggest a; perforation or definite abscess. No free air noted is noted in the abdomen and; pelvis on lung window review of all CT slice levels. Pancreas shows no ductal; dilatation. Has a few scattered calcifications which may reflect prior chronic; pancreatitis. Adrenal glands are normal. Severely atrophic right kidney with; left kidney absent. The adrenal glands intact are. Lobulated right renal cortex; with significant scarring. No hydronephrosis, hydroureter or ureteral stone.; Abundant stool in the right colon to hepatic flexure with scattered gas and small; amounts of stool transverse colon with left colon with mild stool. No dilated; small bowel loops. The aorta is without aneurysm and no periaortic or other; retroperitoneal pathologic sized lymphadenopathy . There is a transplant kidney; in the upper right pelvis low-lying on the psoas muscle. Surgical clips in; similar position previous. No gross hydronephrosis.; ; Pelvis: Better distended than on the previous study. No definite stones or; postsurgical changes in the suprapubic region with surgical clips and scarring.; Uterus is tilted towards the right and not grossly enlarged. The left ovary has; a 2.7 cm cyst. Right ovary shows a dominant follicle about 2 cm. Distal left; colon and sigmoid were unremarkable. There is no sign of colitis or; diverticulitis in the left colon, sigmoid and rectum. There is no ventral hernia; and no inguinal hernia but prior surgery in both inguinal regions noted. The; bone windows show degenerative changes of the hips, SI joints, lumbar lower; thoracic spine to a mild degree. There is bilateral spondylolysis at L5 with; grade 2 spondylolisthesis of L5 upon S1, nearly grade 3.; ; Impression:; ; 1. A distended gallbladder without calcified gallstones. It measures at least; 9.1 x 5.1 cm. No pericholecystic fluid or mass. Liver and spleen not enlarged.; No biliary dilatation or ascites.; ; 2. Inflammatory changes in the fat adjacent to the hepatic flexure and abutting; the deep fascial covering of the oblique muscles that may be inflammatory change; from colitis or other mass or phlegmon. I do not see air bubbles to suggest; abscess. This is a much less severe appearance than 1 year ago when there was a; phlegmon and abscess clearly present.; ; 3. A transplant kidney in the right pelvis without hydronephrosis. Bilateral L5; spondylolysis with grade II spondylolisthesis.; ; ; ; ; ; ; ; ; Signed by; Darci Thomas MD 09/21/2016 08:06 P; Outcome: 19:07 CT Study completed. ck1 19:34 Discharge ordered by Provider. ke 20:17 Discharge Assessment: Patient awake, alert and oriented x 3. No cognitive and/or mb9 functional deficits noted. Patient verbalized understanding of disposition instructions. patient administered narcotics - no. The following High Risk Discharge criteria are identified: None. Discharged to home ambulatory, with friend. Condition: good Condition: stable Condition: improved. Discharge instructions given to patient, Instructed on discharge instructions, follow up and referral plans. medication usage, Demonstrated understanding of instructions, medications, Pt was receptive of discharge instructions/ teaching. Prescriptions given X 2. Property :Personal belongings accompany Pt. 20:19 Patient left the ED. mb9 Signatures: Dispatcher [employer] EDMS Rebecca Sanders, Reg Reg gb Ahsan Burgess, RUBBER MOLD MAKER RUBBER MOLD MAKER Lucía Ulloa,RN RN ck1 Nimisha Caban Teresa, RN RN ttb Nishant Mcgraw, MUKESH MARINE REPORTER Bhanu Gabriel,RN RN mb9 Elvi Mayes,RN RN maximo3 Ranjeet Arana,RN RN jf3 Madai Tinoco Corrections: (The following items were deleted from the chart) 18:06 18:02 LIVER PROFILE+LAB sent. [address] Chart Complete DIONNA
--- NOTE | 2016-09-23 21:20 | EDDOCDS ---
Physician Documentation [facility] Name: Micki Dickens Age: 50 yrs Sex: Female : 1965 Arrival Date: 09/21/2016 Time: 16:02 Bed I4 / M4 Private MD: Armando Nesbitt A. Disposition: 09/21/16 19:34 Discharged to Home/Self Care. Impression: Urinary tract infection, site not specified - pyelonephritis. - Condition is Stable. - Discharge Instructions: Urinary Tract Infection. - Prescriptions for Cipro 500 mg Oral Tablet - take 1 tablet by ORAL route every 12 hours; 14 tablet. Zofran 4 mg Oral Tablet - take 1 tablet by ORAL route 4 times per day As needed; 10 tablet. - Medication Reconciliation, Local Pharmacy Hours form. - Follow up: Armando Nesbitt; When: 2 - 3 days; Reason: Recheck today's complaints, Continuance of care. - Problem is an ongoing problem. - Symptoms are unchanged. Historical: - Allergies: no known allergies; - Home Meds: 1. tacrolimus 5 mg oral cap 6 mg every 12 hours (Last dose: 09/21/2016 08:00) 2. azathioprine 50 mg Oral tab 2 tabs once daily (Last dose: 09/21/2016 08:00) 3. sensipar inahler daily out 4. ferrous sulfate 325 mg (65 mg iron) Oral TbEC daily (Last dose: 09/21/2016 08:00) 5. Vitamin D Oral 88746 unit Mon and Fri (Last dose: 09/21/2016 08:00) 6. Vitamin B-12 1,000 mcg Oral tab daily (Last dose: 09/21/2016 08:00) 7. ranitidine HCl 150 mg Oral cap 1 cap 2 times per day (Last dose: 09/21/2016 08:00) 8. R-Nkuo-Pahdjrn 155-852-130 mg BID Oral (Last dose: 09/21/2016 08:00) 9. multivitamin Oral tab 1 tab daily (Last dose: 09/21/2016 08:00) 10. sodium bicarbonate 650 mg Oral tab three times a day (Last dose: 09/21/2016 08:00) 11. duloxetine 60 mg Oral cpDR 1 cap once daily (Last dose: 09/21/2016 08:00) 12. pregabalin 150 mg oral cap 2 times per day (Last dose: 09/21/2016 08:00) 13. tizanidine 4 mg oral tab 1 tab as needed (Last dose: 09/21/2016 08:00) 14. tacrolimus 1 mg oral cap every 12 hours 15. melatonin 3 mg Oral tab (Last dose: Unknown) 16. oxycodone 5 mg Oral tab 1 tab every 4h as needed 17. oxycodone-acetaminophen 7.5-325 mg Oral tab 1 tab every 6 hours (Last dose: 09/21/2016 14:30) 18. docusate sodium 100 mg Oral tab 1 tab 2 times per day (Last dose: Unknown) 19. magnesium oxide 400 mg Oral cap twice a day (Last dose: 09/21/2016 10:00) 20. budeesonide-fomoterol 80-4.5-2 puffs BID (Last dose: 09/21/2016 08:00) - PMHx: MRSA; Hypertension; Depression; Asthma; - PSHx: Kidney stents; Laparoscopy; ankle surgery; Hernia repair- Incisional; kidney transplant --right side; - Social history: Smoking status: Patient states was never smoker of tobacco. Patient/guardian denies using alcohol, street drugs, No barriers to communication noted, The patient speaks fluent Romanian, Speaks appropriately for age. - Family history: Not pertinent. - : The pt / caregiver states he / she is not on anticoagulants. Home medication list is obtained from the patient. - Exposure Risk Screening:: None identified. 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 4 in. (162.56 cm); Pain 10/10; 18:47 BP 127 / 58; Pulse 84; Resp 16; Temp 96.8(O); Pulse Ox 99% on R/A; Pain 5/10; jrd 20:17 BP 116 / 66; Pulse 85; Resp 17; Temp 97(O); Pulse Ox 97% ; mb9 16:03 Body Mass Index 35.36 (93.44 kg, 162.56 cm) cmb MDM: 17:38 IV Saline Lock ordered. ke 17:38 NS 0.9% 1000 ml IV at 100 mL/hr continuous ordered. ke 17:38 Ondansetron 4 mg IVP once ordered. ke 17:38 morphine 4 mg IVP once ordered. ke 17:39 CBC Ordered. EDMS 17:39 BMP Ordered. EDMS 17:39 UA Ordered. EDMS 17:39 CT ABD & PELVIS: No Contrast Ordered. EDMS 18:00 Financial registration complete. gjb 18:01 Undo -Financial registration. gjb 18:06 LIVER PROFILE Ordered. EDMS 18:26 Financial registration complete. gjb 18:28 [facility] Payment Agreement was scanned into [employer] and attached to record. gjb 18:42 CBC Reviewed. ke 18:42 BMP Reviewed. ke 18:42 UA Reviewed. ke 18:42 LIVER PROFILE Reviewed. ke 18:43 Ciprofloxacin 400 mg IVPB at 200 mL/hr once over 60 mins ordered. ke 09/22 10:11 T-Sheet-- Draft Copy was scanned into [employer] and attached to record. gb 13:08 ED course: dr nesbitt faxed formal report of ct abd/p for fu mlg. ml Administered Medications: 09/21 18:06 Drug: Ondansetron 4 mg [ondansetron HCl 2 mg/mL intravenous solution (2 mL)] Route: kc3 IVP; Site: right antecubital; 18:06 Drug: morphine 4 mg [morphine 4 mg/mL intravenous cartridge (1 mL)] Route: IVP; Site: kc3 right antecubital; 18:07 Drug: NS 0.9% 1000 ml [sodium chloride 0.9 % intravenous solution] Route: IV; Rate: 100 kc3 mL/hr; Site: right antecubital; 19:06 Drug: Ciprofloxacin 400 mg [ciprofloxacin 400 mg/200 mL in 5 % dextrose intravenous ck1 piggyback] Route: IVPB; Rate: 200 mL/hr; Infused Over: 60 mins; Site: right antecubital; 20:16 Follow up: IV Intake: 200ml mb9 Signatures: Dispatcher [employer] EDMS Cuate Magaña MD MD ml Rebecca Sanders, Reg Reg gb Ahsan Burgess, RELATIONSHIP CONSULTANT RELATIONSHIP CONSULTANT Lucía Ulloa RN RN ck1 Josie Banegas RN RN timoteob Bhanu Orona RN RN mb9 Madai Tinoco Elvi Pop RN kc3 The chart was reviewed and I authenticate all verbal orders and agree with the evaluation and treatment provided.Corrections: (The following items were deleted from the chart) 18:06 17:40 LIVER PROFILE+LAB ordered. EDMS EDMS Attachments: 18:28 [facility] Payment Agreement gjb 09/22 10:11 T-Sheet-- Draft Copy gb Chart Complete MTDD
== END 2016-09-21 20:19 | disposition home or self-care (01) ==
LOC: M ED 16:02
DX: N10 Acute pyelonephritis (principal); A49.02 Methicillin resistant Staphylococcus aureus infection, unspecified site; I10 Essential (primary) hypertension; F32.9 Major depressive disorder, single episode, unspecified; J45.909 Unspecified asthma, uncomplicated; Z96.0 Presence of urogenital implants; Z94.0 Kidney transplant status; Z79.899 Other long term (current) drug therapy
CPT/HCPCS: 36415; 74176; 80048; 80076; 81001; 85027; 96374; 96375; 99284; J0744; J2405

== ENCOUNTER → 2017-01-16 | Outpatient (CLI) | payer MEDICARE, MEDICAID ==
--- NOTE | 2017-01-16 17:56 | REPMRS ---
Patient History The patient states she had a clinical breast exam in December 2016.Patient is nulliparous. No known family history of cancer. Took hormonal contraceptives for 10 years. Digital Mammo Screening Bilat: January 16, 2017 - Exam #: [id number] Bilateral CC and MLO view(s) were taken. Technologist: Sarita Mancia, Technologist Prior study comparison: September 08, 2014, bilateral bilat screen digital mammo, performed at [facility] ([facility]). June 27, 2007, bilateral screening mammogram, performed at [facility]. FINDINGS: The breast tissue is almost entirely fat. There has been no change in the appearance of the mammogram from the prior studies. There is no interval development of dominant mass, architectural distortion, or clustered microcalcification typical of malignancy. ASSESSMENT: BI-RADS/ACR category 1 mammogram. Negative. Recommendation Routine screening mammogram of both breasts in 1 year (for women over age 40). This mammogram was interpreted with the aid of an FDA-approved computer-aided dectection system. Electronically Signed By: Julio Lugo MD 01/16/17 1370
== END ==
LOC: M RAD 14:49
PROVIDERS: ATTEND Obstetrics & Gynecology
DX: Z12.31 Encounter for screening mammogram for malignant neoplasm of breast (principal)

== ENCOUNTER → 2017-02-05 | Outpatient (REF) | payer MEDICARE, MEDICAID | LOC: M LAB REF 13:25 | PROVIDERS: ATTEND Internal Medicine Nephrology | DX: Z94.0 Kidney transplant status (principal); N18.4 Chronic kidney disease, stage 4 (severe); D84.9 Immunodeficiency, unspecified; Z79.899 Other long term (current) drug therapy ==

== ENCOUNTER 2017-09-25 02:04 | Emergency (ER) | payer MEDICARE, MEDICAID ==
[2017-09-25] MEDS: IPRATROPIUM 0.5MG/ALBUTEROL 2.5MG INH SOL UD 3ML (DUONEB)(J7620) NEB ×6 (03:50→04:30)
[2017-09-25 03:58] LABS: BASO % 0.4 % (0.0-1.0); EOS # 0.2 10^3/uL (0.0-0.50); HEMATOCRIT 32.4 % (36.0-47.0); HEMOGLOBIN 10.4 g/dl (12.0-16.0); IMMATURE GRANULOCYTE % 0.5 % (0-0); LYMPH % 11.9 % (24.0-44.0); MEAN CORPUSCULAR HEMOGLOBIN 30.1 pg (27.0-33.0); MEAN CORPUSCULAR HGB CONC 32.1 g/dl (32.0-36.5); MEAN CORPUSCULAR VOLUME 93.9 fl (80.0-96.0); MONO # 0.8 10^3/uL (0.0-0.8); MONO % 10.2 % (0.0-5.0); PLATELET COUNT, AUTOMATED 159 10^3/uL (150-450); RED BLOOD COUNT 3.45 10^6/uL (4.00-5.40); RED CELL DISTRIBUTION WIDTH 14.6 % (11.5-14.5); WHITE BLOOD COUNT 8.1 10^3/uL (4.0-10.0)
[2017-09-25 04:02] LABS: VENOUS BASE EXCESS -5.2 (-2.0-2.0); VENOUS HCO3 21.2 MEQ/L (23.0-27.0); VENOUS O2 SATURATION 74.1 % (60.0-80.0); VENOUS PARTIAL PRESSURE CO2 44.6 mmHg (38.0-50.0); VENOUS PARTIAL PRESSURE O2 40.8 mmHg (30.0-50.0); VENOUS PH 7.294 UNITS (7.330-7.430); VENOUS STANDARD HCO3 19.7 MEQ/L; VENOUS TOTAL CO2 22.5 MEQ/L (24.0-28.0)
[2017-09-25 04:27] LABS: ANION GAP 7 MEQ/L (8-16); BLOOD UREA NITROGEN 29 MG/DL (7-18); CALCIUM LEVEL 8.5 MG/DL (8.5-10.1); CARBON DIOXIDE LEVEL 25 MEQ/L (21-32); CHLORIDE LEVEL 102 MEQ/L (98-107); CPK CREATINE PHOSPHOKINASE 100 U/L (26-192); CREATININE FOR GFR 1.41 MG/DL (0.55-1.02); GLOMERULAR FILTRATION RATE 41.9 (>51); GLUCOSE, FASTING 199 MG/DL (70-105); SODIUM LEVEL 134 MEQ/L (136-145); TROPONIN I < 0.02 NG/ML (< 0.10)
[2017-09-25 04:28] LABS: POTASSIUM SERUM 5.5 MEQ/L (3.5-5.1)
[2017-09-25 09:01] LABS: NT-PRO BNP 1837 PG/ML (<125)
== END 2017-09-25 07:28 | disposition left against medical advice (07) ==
LOC: M ED 02:04
DX: R06.02 Shortness of breath (principal); Z79.899 Other long term (current) drug therapy; Z88.8 Allergy status to other drugs, medicaments and biological substances; Z91.018 Allergy to other foods
CPT/HCPCS: 71045

== ENCOUNTER → 2017-10-05 | Outpatient (CLI) | payer MEDICARE, MEDICAID ==
[2017-10-05 14:51] LABS: ALBUMIN 3.6 GM/DL (3.2-5.2); ANION GAP 6 MEQ/L (8-16); BLOOD UREA NITROGEN 26 MG/DL (7-18); CALCIUM LEVEL 9.6 MG/DL (8.5-10.1); CARBON DIOXIDE LEVEL 27 MEQ/L (21-32); CHLORIDE LEVEL 108 MEQ/L (98-107); GLOMERULAR FILTRATION RATE > 60.0 (>51); GLUCOSE, FASTING 121 MG/DL (70-100); PHOSPHORUS LEVEL 2.9 MG/DL (2.5-4.9); POTASSIUM SERUM 4.8 MEQ/L (3.5-5.1); SODIUM LEVEL 141 MEQ/L (136-145)
== END ==
LOC: M LAB 13:04
DX: Z94.0 Kidney transplant status (principal); N18.5 Chronic kidney disease, stage 5; D84.9 Immunodeficiency, unspecified; Z79.899 Other long term (current) drug therapy
CPT/HCPCS: 80069

== ENCOUNTER → 2017-11-09 | Outpatient (CLI) | payer MEDICARE, MEDICAID ==
[2017-11-09 12:39] LABS: ALBUMIN 3.6 GM/DL (3.2-5.2); ANION GAP 5 MEQ/L (8-16); BLOOD UREA NITROGEN 31 MG/DL (7-18); CALCIUM LEVEL 9.4 MG/DL (8.5-10.1); CARBON DIOXIDE LEVEL 26 MEQ/L (21-32); CHLORIDE LEVEL 106 MEQ/L (98-107); CREATININE FOR GFR 1.16 MG/DL (0.55-1.30); GLOMERULAR FILTRATION RATE 52.2 (>51); GLUCOSE, FASTING 220 MG/DL (70-100); PHOSPHORUS LEVEL 3.2 MG/DL (2.5-4.9); POTASSIUM SERUM 4.5 MEQ/L (3.5-5.1); SODIUM LEVEL 137 MEQ/L (136-145)
== END ==
LOC: M LAB 11:48
DX: D84.9 Immunodeficiency, unspecified (principal); N18.5 Chronic kidney disease, stage 5; Z94.0 Kidney transplant status
CPT/HCPCS: 80069

== ENCOUNTER 2018-01-20 17:58 | Emergency (ER) | payer MEDICARE, MEDICAID ==
[2018-01-20] MEDS: METOCLOPRAMIDE 10 MG TAB PO (20:03)
[2018-01-20] MEDS: DICYCLOMINE 10 MG CAP PO (20:03)
[2018-01-20] MEDS: ACETAMINOPH W/CODEINE #3 TAB UD PO (20:04)
[2018-01-20 20:10] LABS: KETONE, URINE AUTO RFX NEGATIVE (NEGATIVE); LEUKOCYTE ESTERASE UR AUTO RFX NEGATIVE (NEGATIVE); MUCUS, URINE RFX SMALL (NEGATIVE); NITRITE, URINE AUTO RFX NEGATIVE (NEGATIVE); RBC, URINE AUTO RFX 1 /HPF (0-3); SPECIFIC GRAVITY UR AUTO RFX 1.025 (1.002-1.035); SQUAM EPITHELIAL CELL UR AURFX 3 /HPF (0-6); WBC, URINE AUTO RFX 7 /HPF (0-3)
[2018-01-20 20:11] LABS: BASO % 0.3 % (0.0-1.0); EOS # 0.1 10^3/uL (0.0-0.50); EOS % 1.4 % (0.0-3.0); HEMATOCRIT 36.9 % (36.0-47.0); HEMOGLOBIN 12.2 g/dl (12.0-15.5); IMMATURE GRANULOCYTE % 0.2 % (0-3.0); LYMPH # 0.8 10^3/uL (1.5-4.5); LYMPH % 7.9 % (24.0-44.0); MEAN CORPUSCULAR HEMOGLOBIN 29.8 pg (27.0-33.0); MEAN CORPUSCULAR HGB CONC 33.1 g/dl (32.0-36.5); MONO # 0.8 10^3/uL (0.0-0.8); MONO % 8.6 % (0.0-5.0); NEUTROPHILS # 7.8 10^3/uL (1.8-7.7); NEUTROPHILS % 81.6 % (36.0-66.0); PLATELET COUNT, AUTOMATED 198 10^3/uL (150-450); WHITE BLOOD COUNT 9.5 10^3/uL (4.0-10.0)
[2018-01-20 20:32] LABS: ANION GAP 7 MEQ/L (8-16); BLOOD UREA NITROGEN 32 MG/DL (7-18); CALCIUM LEVEL 10.8 MG/DL (8.5-10.1); CARBON DIOXIDE LEVEL 27 MEQ/L (21-32); CHLORIDE LEVEL 105 MEQ/L (98-107); CREATININE FOR GFR 1.58 MG/DL (0.55-1.30); GLOMERULAR FILTRATION RATE 36.6 (>51); GLUCOSE, FASTING 148 MG/DL (70-100); POTASSIUM SERUM 4.8 MEQ/L (3.5-5.1); SODIUM LEVEL 139 MEQ/L (136-145)
[2018-01-20] MEDS: NS 500 ML IV (21:30)
== END 2018-01-20 22:44 | disposition home or self-care (01) ==
LOC: M ED 17:58
DX: R19.7 Diarrhea, unspecified (principal); I10 Essential (primary) hypertension; Z90.5 Acquired absence of kidney; M79.2 Neuralgia and neuritis, unspecified; Z98.890 Other specified postprocedural states; Z87.39 Personal history of other diseases of the musculoskeletal system and connective tissue; Z88.8 Allergy status to other drugs, medicaments and biological substances; Z91.048 Other nonmedicinal substance allergy status; Z79.899 Other long term (current) drug therapy
CPT/HCPCS: 80048

== ENCOUNTER 2018-07-08 15:42 | Emergency (ER) | payer MEDICARE, MEDICAID ==
[2018-07-08 16:33] LABS: BASO % 0.3 % (0.0-1.0); EOS # 0.3 10^3/uL (0.0-0.50); EOS % 2.4 % (0.0-3.0); HEMATOCRIT 34.7 % (36.0-47.0); HEMOGLOBIN 11.2 g/dl (12.0-15.5); IMMATURE GRANULOCYTE % 0.3 % (0-3.0); LYMPH # 0.5 10^3/uL (1.5-4.5); LYMPH % 4.7 % (24.0-44.0); MEAN CORPUSCULAR HEMOGLOBIN 30.1 pg (27.0-33.0); MEAN CORPUSCULAR HGB CONC 32.3 g/dl (32.0-36.5); MEAN CORPUSCULAR VOLUME 93.3 fl (80.0-96.0); MONO # 0.6 10^3/uL (0.0-0.8); MONO % 5.9 % (0.0-5.0); NEUTROPHILS # 8.9 10^3/uL (1.8-7.7); NEUTROPHILS % 86.4 % (36.0-66.0); PLATELET COUNT, AUTOMATED 202 10^3/uL (150-450); RED BLOOD COUNT 3.72 10^6/uL (4.00-5.40); RED CELL DISTRIBUTION WIDTH 13.2 % (11.5-14.5); WHITE BLOOD COUNT 10.4 10^3/uL (4.0-10.0)
[2018-07-08] MEDS: NS 1,000 ML IV ×4 (16:38→17:47)
[2018-07-08] MEDS: DICYCLOMINE 10 MG CAP PO ×2 (16:38)
[2018-07-08 16:39] LABS: ANION GAP 7 MEQ/L (8-16); BLOOD UREA NITROGEN 26 MG/DL (7-18); CALCIUM LEVEL 10.3 MG/DL (8.5-10.1); CARBON DIOXIDE LEVEL 24 MEQ/L (21-32); CHLORIDE LEVEL 108 MEQ/L (98-107); CREATININE FOR GFR 1.31 MG/DL (0.55-1.30); GLOMERULAR FILTRATION RATE 45.4 (>51); GLUCOSE, FASTING 188 MG/DL (70-100); POTASSIUM SERUM 5.3 MEQ/L (3.5-5.1); SODIUM LEVEL 139 MEQ/L (136-145)
[2018-07-08] MEDS ORDERED: ISOVUE-370 76% 100ML VIAL (Q9967) As Ordered ×2 (16:56)
[2018-07-08 17:29] LABS: KETONE, URINE AUTO RFX NEGATIVE (NEGATIVE); LEUKOCYTE ESTERASE UR AUTO RFX NEGATIVE (NEGATIVE); MUCUS, URINE RFX SMALL (NEGATIVE); NITRITE, URINE AUTO RFX NEGATIVE (NEGATIVE); RBC, URINE AUTO RFX 3 /HPF (0-3); SPECIFIC GRAVITY UR AUTO RFX 1.017 (1.002-1.035); SQUAM EPITHELIAL CELL UR AURFX 2 /HPF (0-6); WBC, URINE AUTO RFX 0 /HPF (0-3)
[2018-07-08 18:35] LABS: ALBUMIN 3.5 GM/DL (3.2-5.2); ALKALINE PHOSPHATASE 206 U/L (45-117); ALT/SGPT 67 U/L (12-78); AST/SGOT 66 U/L (7-37); BILIRUBIN,DIRECT < 0.1 MG/DL (0.0-0.2); BILIRUBIN,TOTAL 0.2 MG/DL (0.2-1.0); LIPASE 64 U/L (73-393)
[2018-07-08] MEDS: NORCO 5/325MG TABLET (BULK FOR ED) PO ×2 (19:15)
== END 2018-07-08 19:40 | disposition home or self-care (01) ==
LOC: M ED 15:42
DX: R10.11 Right upper quadrant pain (principal); R10.31 Right lower quadrant pain; E87.6 Hypokalemia; Q60.0 Renal agenesis, unilateral; Z94.0 Kidney transplant status; I10 Essential (primary) hypertension; M79.2 Neuralgia and neuritis, unspecified; J30.9 Allergic rhinitis, unspecified; Z88.6 Allergy status to analgesic agent; Z79.899 Other long term (current) drug therapy; Z79.51 Long term (current) use of inhaled steroids; Z96.0 Presence of urogenital implants
CPT/HCPCS: Q9967

== ENCOUNTER → 2018-07-23 | Outpatient (CLI) | payer MEDICARE, MEDICAID ==
[2018-07-23 14:30] LABS: APPEARANCE, URINE HAZY (CLEAR); BACTERIA, URINE AUTO 1+ (NEGATIVE); BASO # 0.1 10^3/uL (0.0-0.2); BILIRUBIN, URINE AUTO NEGATIVE (NEGATIVE); BLOOD, URINE BLOOD NEGATIVE (NEGATIVE); COLOR, URINE AMBER (YELLOW); EOS # 0.3 10^3/uL (0.0-0.50); EOS % 4.1 % (0.0-3.0); GLUCOSE, URINE (UA) AUTO NEGATIVE (NEGATIVE); HEMATOCRIT 38.9 % (36.0-47.0); HEMOGLOBIN 12.4 g/dl (12.0-15.5); IMMATURE GRANULOCYTE % 0.3 % (0-3.0); KETONE, URINE AUTO TRACE mg/dL (NEGATIVE); LEUKOCYTE ESTERASE, URINE AUTO NEGATIVE (NEGATIVE); LYMPH # 0.9 10^3/uL (1.5-4.5); MEAN CORPUSCULAR HEMOGLOBIN 29.8 pg (27.0-33.0); MEAN CORPUSCULAR HGB CONC 31.9 g/dl (32.0-36.5); MEAN CORPUSCULAR VOLUME 93.5 fl (80.0-96.0); MONO # 0.7 10^3/uL (0.0-0.8); MONO % 10.5 % (0.0-5.0); MUCUS, URINE SMALL (NEGATIVE); NEUTROPHILS # 4.4 10^3/uL (1.8-7.7); NEUTROPHILS % 70.1 % (36.0-66.0); NITRITE, URINE AUTO NEGATIVE (NEGATIVE); PLATELET COUNT, AUTOMATED 241 10^3/uL (150-450); PROTEIN, URINE AUTO NEGATIVE (NEGATIVE); RBC, URINE AUTO 3 /HPF (0-3); RED BLOOD COUNT 4.16 10^6/uL (4.00-5.40); RED CELL DISTRIBUTION WIDTH 13.6 % (11.5-14.5); SPECIFIC GRAVITY URINE AUTO 1.027 (1.002-1.035); SQUAMOUS EPITHELIAL CELL UR AU 8 /HPF (0-6); UROBILINOGEN, URINE AUTO 0.2 mg/dL (0.0-2.0); WBC, URINE AUTO 3 /HPF (0-3); WHITE BLOOD COUNT 6.3 10^3/uL (4.0-10.0)
[2018-07-23 14:53] LABS: TOTAL PROTEIN,RANDOM URINE 28.8 MG/DL (0.0-12.0)
[2018-07-23 14:54] LABS: ALBUMIN 3.7 GM/DL (3.2-5.2); ALKALINE PHOSPHATASE 167 U/L (45-117); ALT/SGPT 24 U/L (12-78); ANION GAP 6 MEQ/L (8-16); AST/SGOT 15 U/L (7-37); BILIRUBIN,DIRECT < 0.1 MG/DL (0.0-0.2); BILIRUBIN,TOTAL 0.4 MG/DL (0.2-1.0); BLOOD UREA NITROGEN 27 MG/DL (7-18); CALCIUM LEVEL 10.4 MG/DL (8.5-10.1); CARBON DIOXIDE LEVEL 23 MEQ/L (21-32); CHLORIDE LEVEL 108 MEQ/L (98-107); GLOMERULAR FILTRATION RATE 45.8 (>51); GLUCOSE, FASTING 163 MG/DL (70-100); MAGNESIUM LEVEL 1.7 MG/DL (1.8-2.4); PHOSPHORUS LEVEL 2.2 MG/DL (2.5-4.9); POTASSIUM SERUM 5.8 MEQ/L (3.5-5.1); SODIUM LEVEL 137 MEQ/L (136-145); TOTAL PROTEIN 7.4 GM/DL (6.4-8.2)
== END ==
LOC: M LAB 13:50
DX: N18.5 Chronic kidney disease, stage 5 (principal); D84.9 Immunodeficiency, unspecified; Z94.0 Kidney transplant status; Z79.899 Other long term (current) drug therapy
CPT/HCPCS: 83735

== ENCOUNTER → 2018-08-14 | Outpatient (CLI) | payer MEDICARE, MEDICAID ==
[2018-08-14 15:51] LABS: BASO # 0.1 10^3/uL (0.0-0.2); BASO % 0.8 % (0.0-1.0); EOS # 0.6 10^3/uL (0.0-0.50); EOS % 7.1 % (0.0-3.0); HEMATOCRIT 33.1 % (36.0-47.0); HEMOGLOBIN 10.7 g/dl (12.0-15.5); IMMATURE GRANULOCYTE % 0.5 % (0-3.0); LYMPH # 1.2 10^3/uL (1.5-4.5); LYMPH % 14.6 % (24.0-44.0); MEAN CORPUSCULAR HEMOGLOBIN 29.3 pg (27.0-33.0); MEAN CORPUSCULAR HGB CONC 32.3 g/dl (32.0-36.5); MEAN CORPUSCULAR VOLUME 90.7 fl (80.0-96.0); MONO # 0.9 10^3/uL (0.0-0.8); MONO % 10.4 % (0.0-5.0); NEUTROPHILS # 5.6 10^3/uL (1.8-7.7); NEUTROPHILS % 66.6 % (36.0-66.0); PLATELET COUNT, AUTOMATED 197 10^3/uL (150-450); RED BLOOD COUNT 3.65 10^6/uL (4.00-5.40); RED CELL DISTRIBUTION WIDTH 12.8 % (11.5-14.5); WHITE BLOOD COUNT 8.5 10^3/uL (4.0-10.0)
[2018-08-14 16:31] LABS: FREE T4 1.04 NG/DL (0.76-1.46)
== END ==
LOC: M LAB 15:10
DX: N93.8 Other specified abnormal uterine and vaginal bleeding (principal); N39.0 Urinary tract infection, site not specified
CPT/HCPCS: 84443

== ENCOUNTER → 2018-08-14 | Outpatient (CLI) | payer MEDICARE, MEDICAID ==
[2018-08-14 16:22] LABS: ANION GAP 7 MEQ/L (8-16); BLOOD UREA NITROGEN 40 MG/DL (7-18); CALCIUM LEVEL 10.2 MG/DL (8.5-10.1); CARBON DIOXIDE LEVEL 29 MEQ/L (21-32); CHLORIDE LEVEL 103 MEQ/L (98-107); CREATININE FOR GFR 1.52 MG/DL (0.55-1.30); GLOMERULAR FILTRATION RATE 38.2 (>51); GLUCOSE, FASTING 127 MG/DL (70-100); POTASSIUM SERUM 5.1 MEQ/L (3.5-5.1); SODIUM LEVEL 139 MEQ/L (136-145)
== END ==
LOC: M LAB 15:04
DX: N39.0 Urinary tract infection, site not specified (principal)

== ENCOUNTER → 2019-02-08 | Outpatient (CLI) | payer MEDICARE ==
[~2019-02-08] MED LIST changes: -/ADVA50050 INH; +ADVA1AER2 INH; +AZAT50TA2 PO; -AZAT5TAB PO; -CALC0.5C OR; +CALC0.5C14 OR; -CINA30TA PO; +CINA30TA4 PO; -DOCU100C PO; +DOCU100C16 PO; -DRIS50002 PO; +DRIS50003 PO; -MELA0.02 PO; +MELA3TAB49 PO; -PANT40TA2 PO; +PANT40TA3 PO; +RENV2TAB PO; -SEVE80TAB PO; +TIZA4CAP PO; -TIZA4CAP3 PO
[2019-02-08 16:53] LABS: BASO % 0.6 % (0.0-1.0); EOS # 0.2 10^3/uL (0.0-0.50); EOS % 3.4 % (0.0-3.0); HEMATOCRIT 34.2 % (36.0-47.0); HEMOGLOBIN 10.9 g/dl (12.0-15.5); LYMPH # 0.9 10^3/uL (1.5-4.5); LYMPH % 13.4 % (24.0-44.0); MEAN CORPUSCULAR HGB CONC 31.9 g/dl (32.0-36.5); MEAN CORPUSCULAR VOLUME 97.2 fl (80.0-96.0); MONO # 0.7 10^3/uL (0.0-0.8); MONO % 10.3 % (0.0-5.0); NEUTROPHILS # 4.9 10^3/uL (1.8-7.7); PLATELET COUNT, AUTOMATED 227 10^3/uL (150-450); RED BLOOD COUNT 3.52 10^6/uL (4.00-5.40); WHITE BLOOD COUNT 6.7 10^3/uL (4.0-10.0)
[2019-02-08 16:58] LABS: AMORPHOUS SEDIMENT SMALL (NEGATIVE); APPEARANCE, URINE CLOUDY (CLEAR); BACTERIA, URINE AUTO NEGATIVE (NEGATIVE); BILIRUBIN, URINE AUTO NEGATIVE (NEGATIVE); BLOOD, URINE BLOOD 3+ (NEGATIVE); COLOR, URINE AMBER (YELLOW); GLUCOSE, URINE (UA) AUTO 1+ mg/dL (NEGATIVE); KETONE, URINE AUTO NEGATIVE (NEGATIVE); LEUKOCYTE ESTERASE, URINE AUTO 1+ (NEGATIVE); MUCUS, URINE SMALL (NEGATIVE); NITRITE, URINE AUTO POSITIVE (NEGATIVE); PROTEIN, URINE AUTO 2+ mg/dL (NEGATIVE); RBC, URINE AUTO TNTC /HPF (0-3); SPECIFIC GRAVITY URINE AUTO 1.018 (1.002-1.035); SQUAMOUS EPITHELIAL CELL UR AU 0 /HPF (0-6); UROBILINOGEN, URINE AUTO 0.2 mg/dL (0.0-2.0); WBC, URINE AUTO TNTC /HPF (0-3)
[2019-02-08 17:28] LABS: TOTAL PROTEIN,RANDOM URINE 78.9 MG/DL (0.0-12.0)
[2019-02-08 17:30] LABS: ALBUMIN 3.6 GM/DL (3.2-5.2); ALT/SGPT 22 U/L (12-78); BILIRUBIN,DIRECT < 0.1 MG/DL (0.0-0.2); BILIRUBIN,TOTAL 0.3 MG/DL (0.2-1.0); BLOOD UREA NITROGEN 31 MG/DL (7-18); CARBON DIOXIDE LEVEL 25 MEQ/L (21-32); CHLORIDE LEVEL 106 MEQ/L (98-107); CREATININE FOR GFR 1.32 MG/DL (0.55-1.30); GLOMERULAR FILTRATION RATE 44.8 (>51); GLUCOSE, FASTING 186 MG/DL (70-100); MAGNESIUM LEVEL 1.8 MG/DL (1.8-2.4); PHOSPHORUS LEVEL 2.7 MG/DL (2.5-4.9); POTASSIUM SERUM 5.5 MEQ/L (3.5-5.1); SODIUM LEVEL 138 MEQ/L (136-145); TOTAL PROTEIN 7.4 GM/DL (6.4-8.2)
== END ==
LOC: M LAB 15:25
PROVIDERS: ATTEND Internal Medicine Nephrology
DX: N18.5 Chronic kidney disease, stage 5 (principal); D84.9 Immunodeficiency, unspecified; Z94.0 Kidney transplant status; Z79.899 Other long term (current) drug therapy

== ENCOUNTER → 2020-07-03 | Outpatient (CLI) | payer MEDICARE, MEDICAID ==
[~2020-07-03] MED LIST changes: +CYAN100049 PO; +PANT40TA29 PO; -PANT40TA3 PO; -VITA10002 PO
== END ==
LOC: M LABSMTC 11:32
PROVIDERS: ATTEND Family Medicine
DX: Z20.828 Contact with and (suspected) exposure to other viral communicable diseases (principal)
CPT/HCPCS: C9803; U0003

== ENCOUNTER → 2020-10-09 | Outpatient (CLI) | payer MEDICARE, MEDICAID | LOC: M LABSMTC 13:16 | PROVIDERS: ATTEND Pediatrics | DX: Z20.822 Contact with and (suspected) exposure to COVID-19 (principal) | CPT/HCPCS: C9803; U0003 ==

== ENCOUNTER → 2020-11-13 | Outpatient (CLI) | payer MEDICARE, MEDICAID ==
--- NOTE | 2020-11-13 14:34 | REP ---
INDICATION: PELVIC PAIN, PT HAS LABS FIRST. COMPARISON: CT 07/08/2018, ultrasound 04/20/2012. TECHNIQUE: Transabdominal and endovaginal probes utilized. FINDINGS: The bladder only partially filled at 5.3 x 3.7 x 2.7 cm diameter. Body habitus considerations and underfilling of the bladder limit evaluation on transabdominal images similarly endovaginal probe images are quite limited as well. That said, uterus appears anteverted somewhat heterogeneous and measures 7 x 2.9 x 2.8 cm. Is a endometrial stripe not well visualized but best measured at a thickness of 8 mm. No gross fluid in the endometrial cavity. No definite free fluid in the cul-de-sac. Neither transabdominal or endovaginal probes demonstrate any adnexal tissue, ovaries or mass. No free fluid or loculated fluid collections in the pelvis. IMPRESSION: 1. Anteverted uterus not well assessed due to poor imaging factors described above. LS no gross evidence for pelvic free fluid. Endometrium difficult to see best thickness measurement 8 mm. 2. No adnexal mass, ovarian tissue or free for fluid identified in the either side of the pelvis. <Electronically signed by Darci Thomas > 11/13/20 [id number]
[2020-11-13 14:38] LABS: FREE T4 0.96 NG/DL (0.76-1.46); THYROID STIMULATING HORMONE 1.52 uIU/ML (0.358-3.740)
[2020-11-13 14:39] LABS: PROLACTIN 18.8 NG/ML
== END ==
LOC: M RAD 13:01
PROVIDERS: ATTEND Obstetrics & Gynecology Obstetrics
DX: N85.4 Malposition of uterus (principal); N93.8 Other specified abnormal uterine and vaginal bleeding; Z71.9 Counseling, unspecified

== ENCOUNTER 2021-01-28 13:16 | Emergency (ER) | payer MEDICARE, MEDICAID, OTHER ==
[~2021-01-28] VITALS: Ht 165.1 cm; Wt 77.6 kg
[2021-01-28 14:34] LABS: CALCIUM LEVEL 10.4 MG/DL (8.5-10.1); CREATININE FOR GFR 1.78 MG/DL (0.55-1.30); GLOMERULAR FILTRATION RATE 31.5 (>51); POTASSIUM SERUM 5.8 MEQ/L (3.5-5.1)
[2021-01-28] MEDS ORDERED: CIPROFLOXACIN 500MG TABLET PO ONE (16:50)
[2021-01-28] MEDS ORDERED: SOD POLYSTYRENE SULFONATE SUSP 15 GM/60 ML UD PO ONE (16:50)
[2021-01-28 17:04] VITALS: BP 122/71
--- NOTE | 2021-01-29 20:22 | ECGEPIP ---
[facility] - ED Test Date: 2021-01-28 Pat Name: ABHIJEET GARCIA Department: Room: - Gender: Female Professor Of Special Education: Lashaun PATEL : 1965 Requested By: ALETHEA Bell PA-C Order Number: [id number] Reading MD: Carla Arshad Measurements Intervals [place] Rate: 79 P: 74 WV: 136 QRS: 20 QRSD: 70 T: 39 QT: 360 QTc: 412 Interpretive Statements Normal sinus rhythm NSTTW abnormalities increased rate 09/25/17 Electronically Signed on 01-29-2021 20:21:37 EDT by Carla Arshad
== END 2021-01-28 17:14 | disposition home or self-care (01) ==
LOC: M ED 13:16
DX: E87.5 Hyperkalemia (principal); N39.0 Urinary tract infection, site not specified; R94.31 Abnormal electrocardiogram [ECG] [EKG]; I12.0 Hypertensive chronic kidney disease with stage 5 chronic kidney disease or end stage renal disease; N18.5 Chronic kidney disease, stage 5; D64.9 Anemia, unspecified; Z79.899 Other long term (current) drug therapy; Z94.0 Kidney transplant status; Z91.048 Other nonmedicinal substance allergy status; Z88.8 Allergy status to other drugs, medicaments and biological substances

== ENCOUNTER → 2021-01-28 | Outpatient (CLI) | payer MEDICARE, MEDICAID, OTHER ==
[2021-01-28 11:09] LABS: BASO # 0.1 10^3/uL (0.0-0.2); BASO % 0.6 % (0.0-1.0); EOS # 0.5 10^3/uL (0.0-0.5); HEMATOCRIT 37.8 % (36.0-47.0); HEMOGLOBIN 11.8 g/dl (12.0-15.5); LYMPH # 1.3 10^3/uL (1.5-5.0); LYMPH % 13.4 % (24.0-44.0); MEAN CORPUSCULAR HEMOGLOBIN 30.5 pg (27.0-33.0); MEAN CORPUSCULAR HGB CONC 31.2 g/dl (32.0-36.5); MEAN CORPUSCULAR VOLUME 97.7 fl (80.0-96.0); MONO # 0.9 10^3/uL (0.0-0.8); MONO % 8.9 % (2.0-8.0); NEUTROPHILS # 6.9 10^3/uL (1.5-8.5); PLATELET COUNT, AUTOMATED 309 10^3/uL (150-450); RED BLOOD COUNT 3.87 10^6/uL (4.00-5.40); WHITE BLOOD COUNT 9.7 10^3/uL (4.0-10.0)
[2021-01-28 11:33] LABS: APPEARANCE, URINE TURBID (CLEAR); BILIRUBIN, URINE AUTO NEGATIVE (NEGATIVE); BLOOD, URINE BLOOD 1+ (NEGATIVE); COLOR, URINE YELLOW (YELLOW); GLUCOSE, URINE (UA) AUTO NEGATIVE (NEGATIVE); KETONE, URINE AUTO NEGATIVE (NEGATIVE); LEUKOCYTE ESTERASE, URINE AUTO 3+ (NEGATIVE); NITRITE, URINE AUTO NEGATIVE (NEGATIVE); PROTEIN, URINE AUTO 2+ mg/dL (NEGATIVE); SPECIFIC GRAVITY URINE AUTO 1.025 (1.002-1.035); TOTAL PROTEIN,RANDOM URINE 58.1 MG/DL (0.0-12.0); UROBILINOGEN, URINE AUTO 0.2 mg/dL (0.0-2.0)
[2021-01-28 11:36] LABS: ALBUMIN 3.6 GM/DL (3.2-5.2); BILIRUBIN,DIRECT 0.1 MG/DL (0.0-0.2); BILIRUBIN,TOTAL 0.3 MG/DL (0.2-1.0); CALCIUM LEVEL 10.7 MG/DL (8.5-10.1); CREATININE FOR GFR 1.87 MG/DL (0.55-1.30); GLOMERULAR FILTRATION RATE 29.8 (>51); MAGNESIUM LEVEL 1.9 MG/DL (1.8-2.4); TOTAL PROTEIN 6.9 GM/DL (6.4-8.2)
[2021-01-28 11:37] LABS: POTASSIUM SERUM 6.4 MEQ/L (3.5-5.1)
[2021-01-28 11:41] LABS: WBC, URINE 15-20 /hpf (0-3)
[2021-01-28 11:42] LABS: AMORPHOUS SEDIMENT, URINE SMALL AMOUNT (NEGATIVE); BACTERIA, URINE MOD AMOUNT; HYALINE CAST, URINE NONE SEEN /lpf (0-1); SQUAMOUS EPITHELIAL CELL URINE SMALL AMOUNT /hpf (SMALL AMT)
== END ==
LOC: M LAB 10:13
PROVIDERS: ATTEND Internal Medicine Nephrology
DX: N18.5 Chronic kidney disease, stage 5 (principal); D84.9 Immunodeficiency, unspecified; Z94.0 Kidney transplant status; Z79.899 Other long term (current) drug therapy

== ENCOUNTER → 2021-02-23 | Outpatient (CLI) | payer MEDICARE, MEDICAID, OTHER ==
[2021-02-23 11:11] LABS: BASO # 0.1 10^3/uL (0.0-0.2); BASO % 0.6 % (0.0-1.0); EOS # 0.3 10^3/uL (0.0-0.5); EOS % 2.9 % (0.0-3.0); HEMATOCRIT 37.9 % (36.0-47.0); HEMOGLOBIN 11.6 g/dl (12.0-15.5); LYMPH # 0.9 10^3/uL (1.5-5.0); LYMPH % 9.9 % (24.0-44.0); MEAN CORPUSCULAR HEMOGLOBIN 30.7 pg (27.0-33.0); MEAN CORPUSCULAR HGB CONC 30.6 g/dl (32.0-36.5); MEAN CORPUSCULAR VOLUME 100.3 fl (80.0-96.0); MONO # 0.8 10^3/uL (0.0-0.8); MONO % 8.7 % (2.0-8.0); NEUTROPHILS # 6.7 10^3/uL (1.5-8.5); NEUTROPHILS % 77.4 % (36.0-66.0); PLATELET COUNT, AUTOMATED 227 10^3/uL (150-450); RED BLOOD COUNT 3.78 10^6/uL (4.00-5.40); WHITE BLOOD COUNT 8.6 10^3/uL (4.0-10.0)
[2021-02-23 11:15] LABS: APPEARANCE, URINE CLOUDY (CLEAR); BACTERIA, URINE AUTO 2+ (NEGATIVE); BILIRUBIN, URINE AUTO NEGATIVE (NEGATIVE); BLOOD, URINE BLOOD 2+ (NEGATIVE); COLOR, URINE YELLOW (YELLOW); GLUCOSE, URINE (UA) AUTO NEGATIVE (NEGATIVE); KETONE, URINE AUTO NEGATIVE (NEGATIVE); LEUKOCYTE ESTERASE, URINE AUTO 3+ (NEGATIVE); MUCUS, URINE SMALL (NEGATIVE); NITRITE, URINE AUTO POSITIVE (NEGATIVE); PROTEIN, URINE AUTO 1+ mg/dL (NEGATIVE); RBC, URINE AUTO 15 /HPF (0-3); SPECIFIC GRAVITY URINE AUTO 1.016 (1.002-1.035); SQUAMOUS EPITHELIAL CELL UR AU 4 /HPF (0-6); UROBILINOGEN, URINE AUTO 0.2 mg/dL (0.0-2.0); WBC, URINE AUTO 144 /HPF (0-3)
[2021-02-23 11:42] LABS: TOTAL PROTEIN,RANDOM URINE 33.6 MG/DL (0.0-12.0)
[2021-02-23 11:42] LABS: ALBUMIN 3.7 GM/DL (3.2-5.2); BILIRUBIN,DIRECT 0.1 MG/DL (0.0-0.2); BILIRUBIN,TOTAL 0.3 MG/DL (0.2-1.0); CALCIUM LEVEL 10.2 MG/DL (8.5-10.1); CREATININE FOR GFR 1.58 MG/DL (0.55-1.30); GLOMERULAR FILTRATION RATE 36.1 (>51); PHOSPHORUS LEVEL 2.6 MG/DL (2.5-4.9); POTASSIUM SERUM 5.3 MEQ/L (3.5-5.1); TOTAL PROTEIN 7.2 GM/DL (6.4-8.2)
== END ==
LOC: M LAB 09:46
PROVIDERS: ATTEND Internal Medicine Nephrology
DX: Z94.0 Kidney transplant status (principal)

== ENCOUNTER → 2021-03-02 | Outpatient (REF) | payer MEDICARE, MEDICAID, OTHER ==
[~2021-03-02] MED LIST changes: -OXYC1TAB15 PO; +OXYC7.5T3 PO
[2021-03-02 13:21] LABS: APPEARANCE, URINE CLOUDY (CLEAR); BACTERIA, URINE AUTO 1+ (NEGATIVE); BILIRUBIN, URINE AUTO NEGATIVE (NEGATIVE); BLOOD, URINE BLOOD NEGATIVE (NEGATIVE); COLOR, URINE YELLOW (YELLOW); GLUCOSE, URINE (UA) AUTO NEGATIVE (NEGATIVE); KETONE, URINE AUTO NEGATIVE (NEGATIVE); LEUKOCYTE ESTERASE, URINE AUTO 3+ (NEGATIVE); NITRITE, URINE AUTO NEGATIVE (NEGATIVE); PROTEIN, URINE AUTO 1+ mg/dL (NEGATIVE); RBC, URINE AUTO 0 /HPF (0-3); SPECIFIC GRAVITY URINE AUTO 1.024 (1.002-1.035); SQUAMOUS EPITHELIAL CELL UR AU 0 /HPF (0-6); UROBILINOGEN, URINE AUTO 0.2 mg/dL (0.0-2.0); WBC, URINE AUTO 0 /HPF (0-3)
[2021-03-02 13:54] LABS: TOTAL PROTEIN,RANDOM URINE 40.5 MG/DL (0.0-12.0)
== END ==
LOC: M LAB REF 12:56
PROVIDERS: ATTEND Internal Medicine Nephrology
DX: Z94.0 Kidney transplant status (principal); N18.5 Chronic kidney disease, stage 5; D84.9 Immunodeficiency, unspecified; Z79.899 Other long term (current) drug therapy

== ENCOUNTER → 2021-03-31 | Outpatient (CLI) | payer MEDICARE, MEDICAID ==
[2021-03-31 10:44] LABS: HEMATOCRIT 37.9 % (36.0-47.0); MEAN CORPUSCULAR HEMOGLOBIN 31.2 pg (27.0-33.0); MEAN CORPUSCULAR HGB CONC 31.7 g/dl (32.0-36.5); MEAN CORPUSCULAR VOLUME 98.4 fl (80.0-96.0); PLATELET COUNT, AUTOMATED 216 10^3/uL (150-450); RED BLOOD COUNT 3.85 10^6/uL (4.00-5.40); WHITE BLOOD COUNT 7.5 10^3/uL (4.0-10.0)
[2021-03-31 11:24] LABS: TOTAL PROTEIN,RANDOM URINE 20.8 MG/DL (0.0-12.0)
[2021-03-31 11:25] LABS: AMORPHOUS SEDIMENT SMALL (NEGATIVE); APPEARANCE, URINE CLOUDY (CLEAR); BACTERIA, URINE AUTO 1+ (NEGATIVE); BILIRUBIN, URINE AUTO NEGATIVE (NEGATIVE); BLOOD, URINE BLOOD NEGATIVE (NEGATIVE); COLOR, URINE YELLOW (YELLOW); GLUCOSE, URINE (UA) AUTO NEGATIVE (NEGATIVE); KETONE, URINE AUTO NEGATIVE (NEGATIVE); LEUKOCYTE ESTERASE, URINE AUTO TRACE (NEGATIVE); MUCUS, URINE SMALL (NEGATIVE); NITRITE, URINE AUTO NEGATIVE (NEGATIVE); PROTEIN, URINE AUTO NEGATIVE (NEGATIVE); RBC, URINE AUTO 1 /HPF (0-3); SPECIFIC GRAVITY URINE AUTO 1.017 (1.002-1.035); SQUAMOUS EPITHELIAL CELL UR AU 8 /HPF (0-6); UROBILINOGEN, URINE AUTO 0.2 mg/dL (0.0-2.0); WBC, URINE AUTO 16 /HPF (0-3)
[2021-03-31 11:28] LABS: ALBUMIN 3.8 GM/DL (3.2-5.2); BILIRUBIN,DIRECT 0.1 MG/DL (0.0-0.2); BILIRUBIN,TOTAL 0.3 MG/DL (0.2-1.0); CALCIUM LEVEL 10.1 MG/DL (8.5-10.1); CREATININE FOR GFR 2.18 MG/DL (0.55-1.30); GLOMERULAR FILTRATION RATE 24.9 (>51); MAGNESIUM LEVEL 2.2 MG/DL (1.8-2.4); PHOSPHORUS LEVEL 3.1 MG/DL (2.5-4.9); POTASSIUM SERUM 5.5 MEQ/L (3.5-5.1); TOTAL PROTEIN 7.1 GM/DL (6.4-8.2)
[2021-03-31 12:25] LABS: ATYPICAL LYMPH 2 % (0-5); BASOPHILS 1 % (0-1); EOSINOPHILS 6 % (0-3); LYMPHOCYTES 15 % (16-44); MONOCYTES 10 % (0-5); NEUTROPHILS 66 % (28-66)
[2021-03-31 12:26] LABS: PLATELET ESTIMATE NORMAL (NORMAL)
== END ==
LOC: M LAB 10:00
PROVIDERS: ATTEND Internal Medicine Nephrology
DX: N18.5 Chronic kidney disease, stage 5 (principal); D84.9 Immunodeficiency, unspecified; Z79.899 Other long term (current) drug therapy; Z94.0 Kidney transplant status

== ENCOUNTER → 2021-05-18 | Outpatient (CLI) | payer MEDICARE | LOC: M LAB 16:11 | PROVIDERS: ATTEND Obstetrics & Gynecology Obstetrics | DX: Z87.440 Personal history of urinary (tract) infections (principal); Z79.899 Other long term (current) drug therapy ==

== ENCOUNTER → 2021-06-14 | Outpatient (CLI) | payer MEDICARE ==
--- NOTE | 2021-06-14 15:01 | REP ---
INDICATION: S/P TRANSPLANT KIDNEY. COMPARISON: Comparison CT study July 08, 2018. TECHNIQUE: Urinary tract ultrasound. Renal transplant study with Doppler assessment.. FINDINGS: Scanning at the level of the right iliac fossa shows renal cortical echogenicity is normal. The transplant kidney dimensions are 12.6 x 5.9 x 5.5 cm. There is minimal separation of central renal sinus echoes at the lower pole which may represent mild hydro nephrosis. This is similar to the appearance on the CT study from 2018. There is no evidence of renal mass or cyst. Peak systolic flow velocity in the iliac artery pre anastomosis is recorded at 176 centimeters/second, post anastomosis at 151 centimeters/second. At the anastomosis the main renal artery peak systolic velocity is 178 centimeters/second. Mid renal artery velocity is 127 and at the hilum 129 centimeters/second. Main renal artery to external iliac artery peak systolic velocity ratio normal 1.1. The main renal vein venous velocity is normal 25.5 centimeters/second. Resistive indices and acceleration times are measured in the upper, mid, and lower 3rd intralobar arteries in these values are normal. IMPRESSION: Minimal hydronephrosis transplant kidney. Normal Doppler velocities. <Electronically signed by Julio Lugo > 06/14/21 [id number]
== END ==
LOC: M RAD 14:11
PROVIDERS: ATTEND Internal Medicine Nephrology
DX: N13.30 Unspecified hydronephrosis (principal); Z48.298 Encounter for aftercare following other organ transplant; R79.89 Other specified abnormal findings of blood chemistry; Z94.0 Kidney transplant status

== ENCOUNTER → 2021-06-18 | Outpatient (CLI) | payer MEDICARE | LOC: M LABSMTC 10:51 | PROVIDERS: ATTEND Family Medicine | DX: Z20.822 Contact with and (suspected) exposure to COVID-19 (principal) ==

== ENCOUNTER → 2021-07-02 | Outpatient (REF) | payer MEDICARE, MEDICAID ==
[~2021-07-02] MED LIST changes: -CYMB60CA3 PO; +CYMB60CA4 PO
[2021-07-02 14:05] LABS: AMORPHOUS SEDIMENT SMALL (NEGATIVE); APPEARANCE, URINE CLOUDY (CLEAR); BACTERIA, URINE AUTO 1+ (NEGATIVE); BILIRUBIN, URINE AUTO NEGATIVE (NEGATIVE); BLOOD, URINE BLOOD NEGATIVE (NEGATIVE); COLOR, URINE YELLOW (YELLOW); GLUCOSE, URINE (UA) AUTO NEGATIVE (NEGATIVE); KETONE, URINE AUTO NEGATIVE (NEGATIVE); LEUKOCYTE ESTERASE, URINE AUTO 3+ (NEGATIVE); NITRITE, URINE AUTO NEGATIVE (NEGATIVE); PROTEIN, URINE AUTO 1+ mg/dL (NEGATIVE); RBC, URINE AUTO 4 /HPF (0-3); SPECIFIC GRAVITY URINE AUTO 1.019 (1.002-1.035); SQUAMOUS EPITHELIAL CELL UR AU 0 /HPF (0-6); UROBILINOGEN, URINE AUTO 0.2 mg/dL (0.0-2.0); WBC, URINE AUTO TNTC /HPF (0-3)
== END ==
LOC: M SMT 13:28
PROVIDERS: ATTEND Nurse Practitioner Women's Health
DX: Z87.440 Personal history of urinary (tract) infections (principal); Z79.899 Other long term (current) drug therapy
CPT/HCPCS: 51798; 81001; 87088; 87186; G0463

== ENCOUNTER 2021-09-18 21:16 | Inpatient (IN) | payer MEDICARE, MEDICAID ==
[~2021-09-18] VITALS: Ht 165.1 cm; Wt 72.4 kg
[2021-09-18] MEDS ORDERED: ACETAMINOPHEN TAB 650MG DOSE (2X325MG) PO ONE (21:35)
[2021-09-18 22:35] LABS: BASO % 0.5 % (0.0-1.0); EOS # 0.2 10^3/uL (0.0-0.5); EOS % 3.9 % (0.0-3.0); HEMATOCRIT 33.8 % (36.0-47.0); HEMOGLOBIN 10.7 g/dl (12.0-15.5); LYMPH # 0.3 10^3/uL (1.5-5.0); LYMPH % 5.3 % (24.0-44.0); MEAN CORPUSCULAR HGB CONC 31.7 g/dl (32.0-36.5); MONO # 0.9 10^3/uL (0.0-0.8); MONO % 13.8 % (2.0-8.0); NEUTROPHILS # 4.7 10^3/uL (1.5-8.5); NEUTROPHILS % 75.7 % (36.0-66.0); PLATELET COUNT, AUTOMATED 188 10^3/uL (150-450); RED BLOOD COUNT 3.45 10^6/uL (4.00-5.40); WHITE BLOOD COUNT 6.2 10^3/uL (4.0-10.0)
[2021-09-18 22:59] LABS: CK-MB VALUE MASS < 1.0 NG/ML (<3.6); CPK CREATINE PHOSPHOKINASE 65 U/L (26-192); MB/CK RELATIVE INDEX 1.54 (< OR =4)
[2021-09-18 23:02] LABS: ALBUMIN 3.4 GM/DL (3.2-5.2); BILIRUBIN,TOTAL 0.1 MG/DL (0.2-1.0); CALCIUM LEVEL 9.3 MG/DL (8.5-10.1); CREATININE FOR GFR 1.8 MG/DL (0.55-1.30); GLOMERULAR FILTRATION RATE 31.1 (>51); POTASSIUM SERUM 5.2 MEQ/L (3.5-5.1); TOTAL PROTEIN 6.9 GM/DL (6.4-8.2)
[2021-09-18 23:07] LABS: RSV AMPLIFICATION NEGATIVE (NEGATIVE)
[2021-09-18] MEDS ORDERED: MAGN400T2 PO (23:44)
[2021-09-18] MEDS ORDERED: PREG150C PO (23:44)
[2021-09-18] MEDS ORDERED: BUPR300T92 PO (23:47)
[2021-09-18] MEDS ORDERED: FAMO40TA3 PO (23:47)
[2021-09-18] MEDS ORDERED: ALBU8.5H INH (23:47)
[2021-09-18] MEDS ORDERED: FLUO20CA22 PO (23:47)
[2021-09-18] MEDS ORDERED: HOME MED LIST COMPLETE! XX SCH (23:55)
[2021-09-19] VITALS (7 sets, daily range): BP systolic 134–165; BP diastolic 63–79
[2021-09-19] MEDS ORDERED: LIDOCAINE 2% MDV 20ML VIAL SC ONE
[2021-09-19] MEDS ORDERED: MOM 30ML SUSPENSION UDC PO PRN (00:30)
[2021-09-19] MEDS ORDERED: MAALOX 30 ML SUSP *UDC PO PRN (00:30)
[2021-09-19 01:21] LABS: BASO % 0.6 % (0.0-1.0); EOS # 0.2 10^3/uL (0.0-0.5); HEMATOCRIT 32.5 % (36.0-47.0); HEMOGLOBIN 10.2 g/dl (12.0-15.5); LYMPH # 0.3 10^3/uL (1.5-5.0); LYMPH % 6.1 % (24.0-44.0); MEAN CORPUSCULAR HEMOGLOBIN 30.8 pg (27.0-33.0); MEAN CORPUSCULAR HGB CONC 31.4 g/dl (32.0-36.5); MEAN CORPUSCULAR VOLUME 98.2 fl (80.0-96.0); MONO # 0.9 10^3/uL (0.0-0.8); MONO % 16.4 % (2.0-8.0); NEUTROPHILS % 73.3 % (36.0-66.0); PLATELET COUNT, AUTOMATED 168 10^3/uL (150-450); RED BLOOD COUNT 3.31 10^6/uL (4.00-5.40); WHITE BLOOD COUNT 5.4 10^3/uL (4.0-10.0)
[2021-09-19] MEDS ORDERED: COMBIVENT RESPIMAT 100-20MCG INHALER 4GM INH PRN (01:40)
[2021-09-19 01:42] LABS: ALBUMIN 3.3 GM/DL (3.2-5.2); ALT/SGPT 86 U/L (12-78); BILIRUBIN,TOTAL < 0.1 MG/DL (0.2-1.0); BLOOD UREA NITROGEN 29 MG/DL (7-18); CALCIUM LEVEL 9.5 MG/DL (8.5-10.1); CARBON DIOXIDE LEVEL 22 MEQ/L (21-32); CHLORIDE LEVEL 112 MEQ/L (98-107); CREATININE FOR GFR 1.62 MG/DL (0.55-1.30); GLOMERULAR FILTRATION RATE 35.1 (>51); GLUCOSE, FASTING 144 MG/DL (70-100); MAGNESIUM LEVEL 2.4 MG/DL (1.8-2.4); POTASSIUM SERUM 5.2 MEQ/L (3.5-5.1); SODIUM LEVEL 140 MEQ/L (136-145); TOTAL PROTEIN 6.4 GM/DL (6.4-8.2)
[2021-09-19] MEDS: NS 1,000 ML IV SCH ×3 (02:19→23:23)
[2021-09-19] MEDS ORDERED: SOD POLYSTYRENE SULFONATE SUSP 15 GM/60 ML UD PO ONE (04:00)
[2021-09-19] MEDS: HEPARIN SOD (PORCINE) 5000UNITS/ML 1ML VIAL/SYRINGE SC SCH ×3 (04:28→21:48)
[2021-09-19] MEDS: buPROPion **XL** TABLET 150MG (WELLBUTRIN XL) PO SCH (09:00)
[2021-09-19] MEDS: TACROLIMUS 1 MG CAP (J7507) PO SCH ×2 (09:00→20:24)
[2021-09-19] MEDS ORDERED: REMDESIVIR 200 MG in NS 250 ML IV ONE (10:00)
[2021-09-19] MEDS: ACETAMINOPHEN TAB 650MG DOSE (2X325MG) PO PRN ×2 (11:28→18:18)
[2021-09-19] MEDS ORDERED: SODIUM CHLORIDE 0.9% INJ 10 ML SYR IV ONE (12:00)
[2021-09-19] MEDS ORDERED: ALBUTEROL 90 MCG/ACT 8GM HFA INHALER INH PRN (12:00)
[2021-09-19 12:07] LABS: BASO % 0.5 % (0.0-1.0); EOS # 0.1 10^3/uL (0.0-0.5); EOS % 2.1 % (0.0-3.0); HEMATOCRIT 33.5 % (36.0-47.0); HEMOGLOBIN 10.5 g/dl (12.0-15.5); LYMPH # 0.6 10^3/uL (1.5-5.0); LYMPH % 14.6 % (24.0-44.0); MEAN CORPUSCULAR HEMOGLOBIN 31.2 pg (27.0-33.0); MEAN CORPUSCULAR HGB CONC 31.3 g/dl (32.0-36.5); MEAN CORPUSCULAR VOLUME 99.4 fl (80.0-96.0); MONO # 0.8 10^3/uL (0.0-0.8); MONO % 21.3 % (2.0-8.0); NEUTROPHILS # 2.4 10^3/uL (1.5-8.5); PLATELET COUNT, AUTOMATED 166 10^3/uL (150-450); RED BLOOD COUNT 3.37 10^6/uL (4.00-5.40); WHITE BLOOD COUNT 3.9 10^3/uL (4.0-10.0)
[2021-09-19 12:30] LABS: CREATININE FOR GFR 1.47 MG/DL (0.55-1.30); GLOMERULAR FILTRATION RATE 39.3 (>51); MAGNESIUM LEVEL 2.3 MG/DL (1.8-2.4); POTASSIUM SERUM 5.1 MEQ/L (3.5-5.1)
[2021-09-19] MEDS: FERROUS SULFATE 325MG TAB PO SCH (13:01)
[2021-09-19] MEDS: CYANOCOBALAMIN 500 MCG TAB PO SCH (13:01)
[2021-09-19] MEDS: FLUoxetine 20 MG CAP PO SCH (13:01)
[2021-09-19] MEDS: SODIUM BICARBONATE 325 MG TAB PO SCH ×2 (16:04→20:24)
[2021-09-19] MEDS: FAMOTIDINE 20 MG TAB PO SCH (20:24)
[2021-09-19] MEDS: SYMBICORT 80/4.5MCG INHALER 6GM INH SCH (21:48)
[2021-09-20] VITALS (10 sets, daily range): BP systolic 117–162; BP diastolic 68–93
[2021-09-20] MEDS: ACETAMINOPHEN TAB 650MG DOSE (2X325MG) PO PRN ×5 (00:10→22:53)
[2021-09-20] MEDS: HEPARIN SOD (PORCINE) 5000UNITS/ML 1ML VIAL/SYRINGE SC SCH ×3 (05:39→22:38)
[2021-09-20 07:11] LABS: HEMATOCRIT 35.1 % (36.0-47.0); HEMOGLOBIN 10.9 g/dl (12.0-15.5); MEAN CORPUSCULAR HEMOGLOBIN 30.4 pg (27.0-33.0); MEAN CORPUSCULAR HGB CONC 31.1 g/dl (32.0-36.5); MEAN CORPUSCULAR VOLUME 97.8 fl (80.0-96.0); PLATELET COUNT, AUTOMATED 168 10^3/uL (150-450); RED BLOOD COUNT 3.59 10^6/uL (4.00-5.40); WHITE BLOOD COUNT 3.5 10^3/uL (4.0-10.0)
[2021-09-20 07:35] LABS: ALT/SGPT 61 U/L (12-78); BILIRUBIN,DIRECT < 0.1 MG/DL (0.0-0.2); BILIRUBIN,TOTAL 0.1 MG/DL (0.2-1.0); BLOOD UREA NITROGEN 21 MG/DL (7-18); CALCIUM LEVEL 9.4 MG/DL (8.5-10.1); CARBON DIOXIDE LEVEL 20 MEQ/L (21-32); CHLORIDE LEVEL 113 MEQ/L (98-107); CREATININE FOR GFR 1.21 MG/DL (0.55-1.30); GLOMERULAR FILTRATION RATE 49.2 (>51); GLUCOSE, FASTING 93 MG/DL (70-100); MAGNESIUM LEVEL 1.8 MG/DL (1.8-2.4); POTASSIUM SERUM 5.5 MEQ/L (3.5-5.1); SODIUM LEVEL 137 MEQ/L (136-145); TOTAL PROTEIN 6.4 GM/DL (6.4-8.2)
[2021-09-20] MEDS: CYANOCOBALAMIN 500 MCG TAB PO SCH (08:08)
[2021-09-20] MEDS: FLUoxetine 20 MG CAP PO SCH (08:08)
[2021-09-20] MEDS: TACROLIMUS 1 MG CAP (J7507) PO SCH ×2 (08:08→22:37)
[2021-09-20] MEDS: NS 1,000 ML IV SCH ×2 (08:08→17:41)
[2021-09-20] MEDS: MAGNESIUM OXIDE 400MG TAB (MAG-OX) PO SCH (08:09)
[2021-09-20] MEDS: buPROPion **XL** TABLET 150MG (WELLBUTRIN XL) PO SCH (08:09)
[2021-09-20] MEDS: FERROUS SULFATE 325MG TAB PO SCH (08:09)
[2021-09-20] MEDS: SODIUM BICARBONATE 325 MG TAB PO SCH ×3 (08:09→22:37)
[2021-09-20] MEDS: SYMBICORT 80/4.5MCG INHALER 6GM INH SCH ×2 (08:20→21:09)
[2021-09-20] MEDS ORDERED: PATIROMER SORBITEX CALCIUM 8.4 GM POWDER PACKET (VELTASSA) PO ONE (10:00)
[2021-09-20] MEDS: REMDESIVIR 100 MG in NS 250 ML IV SCH (10:39)
[2021-09-20] MEDS: SODIUM CHLORIDE 0.9% INJ 10 ML SYR IV SCH (11:51)
[2021-09-20 17:07] LABS: CREATININE FOR GFR 1.18 MG/DL (0.55-1.30); GLOMERULAR FILTRATION RATE 50.6 (>51); POTASSIUM SERUM 4.3 MEQ/L (3.5-5.1)
[2021-09-20] MEDS: FAMOTIDINE 20 MG TAB PO SCH (22:38)
[2021-09-21] VITALS: BP 147/80
[2021-09-21] MEDS: ACETAMINOPHEN TAB 650MG DOSE (2X325MG) PO PRN ×3 (03:38→21:37)
[2021-09-21] MEDS: NS 1,000 ML IV SCH (03:47)
[2021-09-21 04:00] VITALS: BP 137/71
[2021-09-21] MEDS ORDERED: ONDANSETRON 4MG/2ML VIAL IV PRN (04:05)
[2021-09-21 06:12] LABS: HEMATOCRIT 35.3 % (36.0-47.0); HEMOGLOBIN 10.8 g/dl (12.0-15.5); MEAN CORPUSCULAR HEMOGLOBIN 30.3 pg (27.0-33.0); MEAN CORPUSCULAR HGB CONC 30.6 g/dl (32.0-36.5); MEAN CORPUSCULAR VOLUME 98.9 fl (80.0-96.0); PLATELET COUNT, AUTOMATED 152 10^3/uL (150-450); RED BLOOD COUNT 3.57 10^6/uL (4.00-5.40); WHITE BLOOD COUNT 2.5 10^3/uL (4.0-10.0)
[2021-09-21 06:36] LABS: CALCIUM LEVEL 9.1 MG/DL (8.5-10.1); CREATININE FOR GFR 1.06 MG/DL (0.55-1.30); GLOMERULAR FILTRATION RATE 57.3 (>51); MAGNESIUM LEVEL 1.5 MG/DL (1.8-2.4); POTASSIUM SERUM 5.3 MEQ/L (3.5-5.1)
[2021-09-21] MEDS: HEPARIN SOD (PORCINE) 5000UNITS/ML 1ML VIAL/SYRINGE SC SCH (07:08)
[2021-09-21] MEDS: SYMBICORT 80/4.5MCG INHALER 6GM INH SCH ×2 (07:36→20:00)
[2021-09-21 08:00] VITALS: BP 146/72
[2021-09-21] MEDS ORDERED: AZATHIOPRINE PO SCH (09:00)
[2021-09-21] MEDS: REMDESIVIR 100 MG in NS 250 ML IV SCH (09:57)
[2021-09-21] MEDS: CYANOCOBALAMIN 500 MCG TAB PO SCH (09:57)
[2021-09-21] MEDS: TACROLIMUS 1 MG CAP (J7507) PO SCH ×2 (09:57→21:35)
[2021-09-21] MEDS: MAGNESIUM OXIDE 400MG TAB (MAG-OX) PO SCH ×2 (09:57→21:35)
[2021-09-21] MEDS: SODIUM BICARBONATE 325 MG TAB PO SCH ×3 (09:57→21:36)
[2021-09-21] MEDS: FERROUS SULFATE 325MG TAB PO SCH (09:57)
[2021-09-21] MEDS: buPROPion **XL** TABLET 150MG (WELLBUTRIN XL) PO SCH (09:57)
[2021-09-21] MEDS: FLUoxetine 20 MG CAP PO SCH (09:58)
[2021-09-21] MEDS ORDERED: MAG SULF 1GM/100ML (MAG RUN) 1 GM in IV 1 EA IV ONE ×4 (11:00)
[2021-09-21] MEDS: SODIUM CHLORIDE 0.9% INJ 10 ML SYR IV SCH (11:22)
[2021-09-21] MEDS: PATIROMER SORBITEX CALCIUM 8.4 GM POWDER PACKET (VELTASSA) PO SCH (11:59)
[2021-09-21 16:00] VITALS: BP 140/69
[2021-09-21 20:00] VITALS: BP 136/72
[2021-09-21] MEDS: FAMOTIDINE 20 MG TAB PO SCH (21:36)
[2021-09-21 23:53] VITALS: BP 146/79
[2021-09-22 04:00] VITALS: BP 116/74
[2021-09-22] MEDS: ACETAMINOPHEN TAB 650MG DOSE (2X325MG) PO PRN ×2 (06:49→12:08)
[2021-09-22 06:53] VITALS: BP_SYST 124; BP_SYST 125; BP_DIAS 70; BP_DIAS 73
[2021-09-22] MEDS: SYMBICORT 80/4.5MCG INHALER 6GM INH SCH (07:56)
[2021-09-22 08:00] VITALS: BP 149/75
[2021-09-22] MEDS: FLUoxetine 20 MG CAP PO SCH (08:15)
[2021-09-22] MEDS: FERROUS SULFATE 325MG TAB PO SCH (08:15)
[2021-09-22] MEDS: MAGNESIUM OXIDE 400MG TAB (MAG-OX) PO SCH (08:15)
[2021-09-22] MEDS: CYANOCOBALAMIN 500 MCG TAB PO SCH (08:16)
[2021-09-22] MEDS: SODIUM BICARBONATE 325 MG TAB PO SCH ×2 (08:16→16:45)
[2021-09-22] MEDS: buPROPion **XL** TABLET 150MG (WELLBUTRIN XL) PO SCH (08:16)
[2021-09-22] MEDS: TACROLIMUS 1 MG CAP (J7507) PO SCH (08:16)
[2021-09-22 08:18] LABS: HEMATOCRIT 35.2 % (36.0-47.0); HEMOGLOBIN 11.1 g/dl (12.0-15.5); MEAN CORPUSCULAR HEMOGLOBIN 30.7 pg (27.0-33.0); MEAN CORPUSCULAR HGB CONC 31.5 g/dl (32.0-36.5); MEAN CORPUSCULAR VOLUME 97.5 fl (80.0-96.0); PLATELET COUNT, AUTOMATED 177 10^3/uL (150-450); RED BLOOD COUNT 3.61 10^6/uL (4.00-5.40); WHITE BLOOD COUNT 3.1 10^3/uL (4.0-10.0)
[2021-09-22 09:06] LABS: CALCIUM LEVEL 9.3 MG/DL (8.5-10.1); CREATININE FOR GFR 1.13 MG/DL (0.55-1.30); GLOMERULAR FILTRATION RATE 53.2 (>51); MAGNESIUM LEVEL 1.6 MG/DL (1.8-2.4); POTASSIUM SERUM 5.4 MEQ/L (3.5-5.1)
[2021-09-22] MEDS ORDERED: traMADol 50 MG TAB PO PRN (09:50)
[2021-09-22] MEDS ORDERED: MAG SULF 1GM/100ML (MAG RUN) 1 GM in IV 1 EA IV ONE (10:00)
[2021-09-22] MEDS ORDERED: SOD POLYSTYRENE SULFONATE SUSP 15 GM/60 ML UD PO ONE (11:00)
[2021-09-22] MEDS: PATIROMER SORBITEX CALCIUM 8.4 GM POWDER PACKET (VELTASSA) PO SCH (11:36)
[2021-09-22 12:00] VITALS: BP 178/87
[2021-09-22 13:59] VITALS: BP 135/70
[2021-09-22 16:21] LABS: CALCIUM LEVEL 9.9 MG/DL (8.5-10.1); CREATININE FOR GFR 1.18 MG/DL (0.55-1.30); GLOMERULAR FILTRATION RATE 50.6 (>51); POTASSIUM SERUM 4.5 MEQ/L (3.5-5.1)
[2021-09-22] MEDS ORDERED: AUGM875T28 PO (19:21)
== END 2021-09-22 17:45 | disposition home or self-care (01) | DRG 682 ==
LOC: M ED 21:16 → M ED INP 09-19 00:36 → M 4MAIN 09-19 01:40
PROVIDERS: ADMIT Family Medicine; ATTEND Internal Medicine
DX: N17.9 Acute kidney failure, unspecified (principal); U07.1 COVID-19; Z94.0 Kidney transplant status; I12.0 Hypertensive chronic kidney disease with stage 5 chronic kidney disease or end stage renal disease; E87.2 Acidosis; J45.909 Unspecified asthma, uncomplicated; F32.A Depression, unspecified; R29.6 Repeated falls; N18.6 End stage renal disease; K43.2 Incisional hernia without obstruction or gangrene; K59.09 Other constipation; Z79.899 Other long term (current) drug therapy; Z88.6 Allergy status to analgesic agent; R55 Syncope and collapse; S01.01XA Laceration without foreign body of scalp, initial encounter; W18.2XXA Fall in (into) shower or empty bathtub, initial encounter; Y92.009 Unspecified place in unspecified non-institutional (private) residence as the place of occurrence of the external cause; E87.5 Hyperkalemia; D63.1 Anemia in chronic kidney disease

== ENCOUNTER 2021-10-07 14:23 | Inpatient (IN) | payer MEDICAID, MEDICARE ==
[~2021-10-07] VITALS: Ht 165.1 cm; Wt 69.3 kg
[~2021-10-07 14:23] MED LIST changes: +ALBU8.5H INH; +AUGM875T28 PO; +BUPR300T92 PO; +FAMO40TA3 PO; +FLUO20CA22 PO; +MAGN400T2 PO; +PREG150C PO
[2021-10-07] MEDS ORDERED: QC A650T3 PO (14:42)
[2021-10-07] MEDS ORDERED: MORPHINE 4 MG/ML 1ML VIAL/SYRINGE (J2270) IV ONE (18:10)
[2021-10-07] MEDS ORDERED: NS 1,000 ML IV ONE ×2 (18:10→21:20)
[2021-10-07] MEDS ORDERED: ONDANSETRON 4MG/2ML VIAL IV ONE (18:10)
[2021-10-07 18:42] LABS: HEMATOCRIT 32.2 % (36.0-47.0); HEMOGLOBIN 10.8 g/dl (12.0-15.5); MEAN CORPUSCULAR HEMOGLOBIN 30.4 pg (27.0-33.0); MEAN CORPUSCULAR HGB CONC 33.5 g/dl (32.0-36.5); MEAN CORPUSCULAR VOLUME 90.7 fl (80.0-96.0); PLATELET COUNT, AUTOMATED 189 10^3/uL (150-450); RED BLOOD COUNT 3.55 10^6/uL (4.00-5.40); WHITE BLOOD COUNT 7.8 10^3/uL (4.0-10.0)
[2021-10-07 19:06] LABS: ALBUMIN 2.7 GM/DL (3.2-5.2); BILIRUBIN,DIRECT 0.2 MG/DL (0.0-0.2); BILIRUBIN,TOTAL 0.3 MG/DL (0.2-1.0); TOTAL PROTEIN 6.6 GM/DL (6.4-8.2)
[2021-10-07 19:18] LABS: ATYPICAL LYMPH 1 % (0-5); EOSINOPHILS 1 % (0-3); LYMPHOCYTES 4 % (16-44); MONOCYTES 15 % (0-5); NEUTROPHILS 79 % (28-66); PLATELET ESTIMATE NORMAL (NORMAL)
[2021-10-07] MEDS: GASTROGRAFIN SOLUTION 30ML PO SCH ×2 (19:30→20:31)
[2021-10-07] MEDS ORDERED: cefTRIAXone SOD 1 GM in D5W MINI-BAG PLUS 50 ML IV ONE (22:50)
[2021-10-08] MEDS ORDERED: ACETAMINOPHEN TAB 650MG DOSE (2X325MG) PO ONE (00:50)
[2021-10-08 01:23] LABS: RSV AMPLIFICATION NEGATIVE (NEGATIVE)
[2021-10-08] MEDS ORDERED: HOME MED LIST COMPLETE! XX SCH (03:30)
[2021-10-08] MEDS ORDERED: TACR5CAP4 PO (03:30)
[2021-10-08] MEDS ORDERED: VITMTA PO (03:30)
[2021-10-08] MEDS ORDERED: ACET650T61 PO (03:30)
[2021-10-08] MEDS ORDERED: NS 1,000 ML IV SCH (04:25)
[2021-10-08] MEDS: ACETAMINOPHEN TAB 650MG DOSE (2X325MG) PO PRN ×3 (05:53→21:00)
[2021-10-08] MEDS: HEPARIN SOD (PORCINE) 5000UNITS/ML 1ML VIAL/SYRINGE SC SCH ×3 (05:54→20:59)
[2021-10-08 06:42] VITALS: BP 117/62
[2021-10-08 07:22] LABS: CREATININE FOR GFR 1.92 MG/DL (0.55-1.30); GLOMERULAR FILTRATION RATE 28.9 (>51); POTASSIUM SERUM 4.1 MEQ/L (3.5-5.1)
[2021-10-08] MEDS: SYMBICORT 80/4.5MCG INHALER 6GM INH SCH ×2 (07:53→17:46)
[2021-10-08] MEDS: FERROUS SULFATE 325MG TAB PO SCH (08:08)
[2021-10-08] MEDS: FLUoxetine 20 MG CAP PO SCH (08:08)
[2021-10-08] MEDS: CYANOCOBALAMIN 500 MCG TAB PO SCH (08:08)
[2021-10-08] MEDS: buPROPion **XL** TABLET 150MG (WELLBUTRIN XL) PO SCH (08:08)
[2021-10-08] MEDS: NS 1,000 ML IV SCH ×2 (08:09→15:56)
[2021-10-08] MEDS: SODIUM BICARBONATE 325 MG TAB PO SCH ×3 (08:51→20:58)
[2021-10-08] MEDS: TACROLIMUS 1 MG CAP (J7507) PO SCH ×2 (08:52→20:59)
[2021-10-08] MEDS ORDERED: DOCUSATE SODIUM 100MG CAPSULE PO SCH (09:00)
[2021-10-08] MEDS ORDERED: TACROLIMUS 1 MG CAP (J7507) PO SCH (09:00)
[2021-10-08] MEDS: MAGNESIUM OXIDE 400MG TAB (MAG-OX) PO SCH ×2 (13:43→20:58)
[2021-10-08] MEDS: PREGABALIN 75 MG CAP(LYRICA) PO SCH ×2 (13:44→20:58)
[2021-10-08] MEDS: MULTIVITAMINS/MINERALS THERAP 1 TAB PO SCH (13:44)
[2021-10-08 14:00] VITALS: BP 141/82
[2021-10-08] MEDS: FAMOTIDINE 20 MG TAB PO SCH (20:58)
[2021-10-08 22:00] VITALS: BP 115/60
[2021-10-08] MEDS: cefTRIAXone SOD 1 GM in D5W MINI-BAG PLUS 50 ML IV SCH (22:24)
[2021-10-09] MEDS: NS 1,000 ML IV SCH ×3 (01:37→21:26)
[2021-10-09] MEDS: HEPARIN SOD (PORCINE) 5000UNITS/ML 1ML VIAL/SYRINGE SC SCH ×3 (05:14→21:25)
[2021-10-09] MEDS: ACETAMINOPHEN TAB 650MG DOSE (2X325MG) PO PRN ×3 (05:37→20:22)
[2021-10-09 06:00] VITALS: BP 138/85
[2021-10-09 06:51] LABS: HEMATOCRIT 23.3 % (36.0-47.0); MEAN CORPUSCULAR HEMOGLOBIN 30.5 pg (27.0-33.0); MEAN CORPUSCULAR HGB CONC 31.8 g/dl (32.0-36.5); MEAN CORPUSCULAR VOLUME 95.9 fl (80.0-96.0); PLATELET COUNT, AUTOMATED 126 10^3/uL (150-450); RED BLOOD COUNT 2.43 10^6/uL (4.00-5.40); WHITE BLOOD COUNT 5.4 10^3/uL (4.0-10.0)
[2021-10-09 06:52] LABS: HEMOGLOBIN 7.4 g/dl (12.0-15.5)
[2021-10-09 06:57] LABS: BILIRUBIN,TOTAL 0.2 MG/DL (0.2-1.0); CALCIUM LEVEL 9.3 MG/DL (8.5-10.1); CREATININE FOR GFR 1.8 MG/DL (0.55-1.30); GLOMERULAR FILTRATION RATE 31.1 (>51); POTASSIUM SERUM 3.8 MEQ/L (3.5-5.1); TOTAL PROTEIN 5.9 GM/DL (6.4-8.2)
[2021-10-09] MEDS ORDERED: LOPERAMIDE 2 MG CAPLET PO PRN (08:00)
[2021-10-09] MEDS: SYMBICORT 80/4.5MCG INHALER 6GM INH SCH ×2 (08:13→20:33)
[2021-10-09] MEDS: SODIUM BICARBONATE 325 MG TAB PO SCH ×3 (08:48→20:22)
[2021-10-09] MEDS: TACROLIMUS 1 MG CAP (J7507) PO SCH ×2 (08:48→20:22)
[2021-10-09] MEDS: buPROPion **XL** TABLET 150MG (WELLBUTRIN XL) PO SCH (08:48)
[2021-10-09] MEDS: MULTIVITAMINS/MINERALS THERAP 1 TAB PO SCH (08:48)
[2021-10-09] MEDS: CYANOCOBALAMIN 500 MCG TAB PO SCH (08:48)
[2021-10-09] MEDS: FERROUS SULFATE 325MG TAB PO SCH (08:49)
[2021-10-09] MEDS: FLUoxetine 20 MG CAP PO SCH (08:49)
[2021-10-09] MEDS: PREGABALIN 75 MG CAP(LYRICA) PO SCH ×2 (08:49→20:22)
[2021-10-09] MEDS: MAGNESIUM OXIDE 400MG TAB (MAG-OX) PO SCH ×2 (08:49→20:22)
[2021-10-09 14:00] VITALS: BP 138/85
[2021-10-09] MEDS: cefTRIAXone SOD 1 GM in D5W MINI-BAG PLUS 50 ML IV SCH (22:41)
[2021-10-10] MEDS: HEPARIN SOD (PORCINE) 5000UNITS/ML 1ML VIAL/SYRINGE SC SCH ×3 (04:44→22:02)
[2021-10-10] MEDS: ACETAMINOPHEN TAB 650MG DOSE (2X325MG) PO PRN ×4 (04:44→20:39)
[2021-10-10 06:00] VITALS: BP 162/83
[2021-10-10 06:14] LABS: HEMATOCRIT 26.9 % (36.0-47.0); HEMOGLOBIN 8.8 g/dl (12.0-15.5); MEAN CORPUSCULAR HEMOGLOBIN 30.4 pg (27.0-33.0); MEAN CORPUSCULAR HGB CONC 32.7 g/dl (32.0-36.5); MEAN CORPUSCULAR VOLUME 93.1 fl (80.0-96.0); PLATELET COUNT, AUTOMATED 163 10^3/uL (150-450); RED BLOOD COUNT 2.89 10^6/uL (4.00-5.40); WHITE BLOOD COUNT 5.4 10^3/uL (4.0-10.0)
[2021-10-10] MEDS: SYMBICORT 80/4.5MCG INHALER 6GM INH SCH ×2 (07:54→17:59)
[2021-10-10] MEDS: TACROLIMUS 1 MG CAP (J7507) PO SCH ×2 (08:07→20:40)
[2021-10-10] MEDS: buPROPion **XL** TABLET 150MG (WELLBUTRIN XL) PO SCH (08:07)
[2021-10-10] MEDS: SODIUM BICARBONATE 325 MG TAB PO SCH ×3 (08:08→20:39)
[2021-10-10] MEDS: PREGABALIN 75 MG CAP(LYRICA) PO SCH ×2 (08:08→20:39)
[2021-10-10] MEDS: FERROUS SULFATE 325MG TAB PO SCH (08:08)
[2021-10-10] MEDS: CYANOCOBALAMIN 500 MCG TAB PO SCH (08:08)
[2021-10-10] MEDS: MULTIVITAMINS/MINERALS THERAP 1 TAB PO SCH (08:08)
[2021-10-10] MEDS: MAGNESIUM OXIDE 400MG TAB (MAG-OX) PO SCH ×2 (08:08→20:39)
[2021-10-10] MEDS: FLUoxetine 20 MG CAP PO SCH (08:08)
[2021-10-10 08:25] LABS: BILIRUBIN,TOTAL 0.2 MG/DL (0.2-1.0); CALCIUM LEVEL 9.5 MG/DL (8.5-10.1); CREATININE FOR GFR 1.48 MG/DL (0.55-1.30); POTASSIUM SERUM 4.1 MEQ/L (3.5-5.1); TOTAL PROTEIN 6.1 GM/DL (6.4-8.2)
[2021-10-10] MEDS ORDERED: SIMETHICONE 80MG CHEW TAB PO PRN (09:15)
[2021-10-10] MEDS: NS 1,000 ML IV SCH ×2 (12:48→22:07)
[2021-10-10 14:00] VITALS: BP 160/85
[2021-10-10] MEDS: LACTOBACILLUS ACIDOPHILUS CAP (BACID) PO SCH (17:47)
[2021-10-10] MEDS: FAMOTIDINE 20 MG TAB PO SCH (20:39)
[2021-10-10 21:48] VITALS: BP 156/88
[2021-10-10 22:00] VITALS: BP 156/88
[2021-10-10] MEDS: cefTRIAXone SOD 1 GM in D5W MINI-BAG PLUS 50 ML IV SCH (22:02)
[2021-10-10] MEDS: diphenhydrAMINE 25MG CAP PO PRN (22:40)
[2021-10-10] MEDS: ALBUTEROL 90 MCG/ACT 8GM HFA INHALER INH PRN (23:32)
[2021-10-11] MEDS: ACETAMINOPHEN TAB 650MG DOSE (2X325MG) PO PRN ×3 (02:52→18:52)
[2021-10-11 06:00] VITALS: BP 161/90
[2021-10-11] MEDS: HEPARIN SOD (PORCINE) 5000UNITS/ML 1ML VIAL/SYRINGE SC SCH ×3 (06:01→21:48)
[2021-10-11] MEDS: SYMBICORT 80/4.5MCG INHALER 6GM INH SCH ×2 (07:22→20:08)
[2021-10-11] MEDS: buPROPion **XL** TABLET 150MG (WELLBUTRIN XL) PO SCH (09:08)
[2021-10-11] MEDS: MULTIVITAMINS/MINERALS THERAP 1 TAB PO SCH (09:08)
[2021-10-11] MEDS: CYANOCOBALAMIN 500 MCG TAB PO SCH (09:09)
[2021-10-11] MEDS: PREGABALIN 75 MG CAP(LYRICA) PO SCH ×2 (09:09→21:00)
[2021-10-11] MEDS: SODIUM BICARBONATE 325 MG TAB PO SCH ×3 (09:09→21:47)
[2021-10-11] MEDS: FERROUS SULFATE 325MG TAB PO SCH (09:09)
[2021-10-11] MEDS: TACROLIMUS 1 MG CAP (J7507) PO SCH ×2 (09:10→21:47)
[2021-10-11] MEDS: LACTOBACILLUS ACIDOPHILUS CAP (BACID) PO SCH ×2 (09:10→17:00)
[2021-10-11] MEDS: MAGNESIUM OXIDE 400MG TAB (MAG-OX) PO SCH ×2 (09:11→21:47)
[2021-10-11] MEDS: FLUoxetine 20 MG CAP PO SCH (09:11)
[2021-10-11 09:29] LABS: HEMATOCRIT 27.1 % (36.0-47.0); HEMOGLOBIN 8.8 g/dl (12.0-15.5); MEAN CORPUSCULAR HEMOGLOBIN 30.2 pg (27.0-33.0); MEAN CORPUSCULAR HGB CONC 32.5 g/dl (32.0-36.5); MEAN CORPUSCULAR VOLUME 93.1 fl (80.0-96.0); PLATELET COUNT, AUTOMATED 202 10^3/uL (150-450); RED BLOOD COUNT 2.91 10^6/uL (4.00-5.40); WHITE BLOOD COUNT 8.6 10^3/uL (4.0-10.0)
[2021-10-11 10:15] LABS: ALBUMIN 2.1 GM/DL (3.2-5.2); BILIRUBIN,TOTAL 0.4 MG/DL (0.2-1.0); CALCIUM LEVEL 9.5 MG/DL (8.5-10.1); CREATININE FOR GFR 1.45 MG/DL (0.55-1.30); GLOMERULAR FILTRATION RATE 39.9 (>51); POTASSIUM SERUM 4.3 MEQ/L (3.5-5.1); TOTAL PROTEIN 6.2 GM/DL (6.4-8.2)
[2021-10-11] MEDS: diphenhydrAMINE 25MG CAP PO PRN (10:54)
[2021-10-11] MEDS: NS 1,000 ML IV SCH ×2 (12:16→23:30)
[2021-10-11] MEDS ORDERED: diphenhydrAMINE CREAM 30GM TOP PRN (13:15)
[2021-10-11 14:00] VITALS: BP 163/91
[2021-10-11 20:30] VITALS: BP 142/82
[2021-10-11] MEDS: RAMELTEON 8 MG TAB (ROZEREM) PO PRN (21:47)
[2021-10-11] MEDS: cefTRIAXone SOD 1 GM in D5W MINI-BAG PLUS 50 ML IV SCH (23:30)
[2021-10-12] MEDS: ACETAMINOPHEN TAB 650MG DOSE (2X325MG) PO PRN ×4 (02:26→22:09)
[2021-10-12] MEDS: HEPARIN SOD (PORCINE) 5000UNITS/ML 1ML VIAL/SYRINGE SC SCH ×3 (05:15→22:08)
[2021-10-12 06:00] VITALS: BP 143/78
[2021-10-12 06:56] LABS: HEMATOCRIT 25.5 % (36.0-47.0); HEMOGLOBIN 8.3 g/dl (12.0-15.5); MEAN CORPUSCULAR HEMOGLOBIN 30.3 pg (27.0-33.0); MEAN CORPUSCULAR HGB CONC 32.5 g/dl (32.0-36.5); MEAN CORPUSCULAR VOLUME 93.1 fl (80.0-96.0); PLATELET COUNT, AUTOMATED 208 10^3/uL (150-450); RED BLOOD COUNT 2.74 10^6/uL (4.00-5.40); WHITE BLOOD COUNT 9.3 10^3/uL (4.0-10.0)
[2021-10-12 07:14] LABS: ALBUMIN 1.9 GM/DL (3.2-5.2); BILIRUBIN,TOTAL 0.4 MG/DL (0.2-1.0); CALCIUM LEVEL 9.6 MG/DL (8.5-10.1); CREATININE FOR GFR 1.11 MG/DL (0.55-1.30); GLOMERULAR FILTRATION RATE 54.3 (>51); POTASSIUM SERUM 4.6 MEQ/L (3.5-5.1); TOTAL PROTEIN 6.2 GM/DL (6.4-8.2)
[2021-10-12] MEDS: PREGABALIN 75 MG CAP(LYRICA) PO SCH ×2 (09:00→21:00)
[2021-10-12] MEDS: FERROUS SULFATE 325MG TAB PO SCH (09:19)
[2021-10-12] MEDS: FLUoxetine 20 MG CAP PO SCH (09:19)
[2021-10-12] MEDS: TACROLIMUS 1 MG CAP (J7507) PO SCH ×2 (09:19→22:08)
[2021-10-12] MEDS: MAGNESIUM OXIDE 400MG TAB (MAG-OX) PO SCH ×2 (09:19→22:09)
[2021-10-12] MEDS: LACTOBACILLUS ACIDOPHILUS CAP (BACID) PO SCH ×2 (09:19→17:09)
[2021-10-12] MEDS: MULTIVITAMINS/MINERALS THERAP 1 TAB PO SCH (09:19)
[2021-10-12] MEDS: buPROPion **XL** TABLET 150MG (WELLBUTRIN XL) PO SCH (09:20)
[2021-10-12] MEDS: CYANOCOBALAMIN 500 MCG TAB PO SCH (09:20)
[2021-10-12] MEDS: SODIUM BICARBONATE 325 MG TAB PO SCH ×3 (09:20→22:09)
[2021-10-12] MEDS ORDERED: SODIUM CHLORIDE NASAL 0.65% SPRAY BTL (OCEAN) PRN (09:40)
[2021-10-12] MEDS: FLUTICASONE PROP 0.05% NASAL SPRAY 16 GM (FLONASE) NARES SCH (10:14)
[2021-10-12] MEDS: SYMBICORT 80/4.5MCG INHALER 6GM INH SCH ×2 (11:08→19:35)
[2021-10-12 13:15] VITALS: BP 160/90
[2021-10-12 13:21] VITALS: BP 160/90
[2021-10-12] MEDS: NS 1,000 ML IV SCH (17:10)
[2021-10-12] MEDS: diphenhydrAMINE 25MG CAP PO PRN (17:10)
[2021-10-12 22:00] VITALS: BP 152/83
[2021-10-12] MEDS: RAMELTEON 8 MG TAB (ROZEREM) PO PRN (22:08)
[2021-10-12] MEDS: cefTRIAXone SOD 1 GM in D5W MINI-BAG PLUS 50 ML IV SCH (22:08)
[2021-10-12] MEDS: FAMOTIDINE 20 MG TAB PO SCH (22:09)
[2021-10-13] MEDS: NS 1,000 ML IV SCH (04:59)
[2021-10-13] MEDS: ACETAMINOPHEN TAB 650MG DOSE (2X325MG) PO PRN ×4 (04:59→22:08)
[2021-10-13] MEDS: HEPARIN SOD (PORCINE) 5000UNITS/ML 1ML VIAL/SYRINGE SC SCH ×3 (04:59→22:07)
[2021-10-13 06:00] VITALS: BP 157/89
[2021-10-13 06:11] LABS: HEMATOCRIT 26.1 % (36.0-47.0); HEMOGLOBIN 8.3 g/dl (12.0-15.5); MEAN CORPUSCULAR HEMOGLOBIN 29.7 pg (27.0-33.0); MEAN CORPUSCULAR HGB CONC 31.8 g/dl (32.0-36.5); MEAN CORPUSCULAR VOLUME 93.5 fl (80.0-96.0); PLATELET COUNT, AUTOMATED 233 10^3/uL (150-450); RED BLOOD COUNT 2.79 10^6/uL (4.00-5.40); WHITE BLOOD COUNT 8.9 10^3/uL (4.0-10.0)
[2021-10-13 06:32] LABS: ALBUMIN 2.1 GM/DL (3.2-5.2); BILIRUBIN,TOTAL 0.3 MG/DL (0.2-1.0); CALCIUM LEVEL 9.8 MG/DL (8.5-10.1); CREATININE FOR GFR 1.1 MG/DL (0.55-1.30); GLOMERULAR FILTRATION RATE 54.9 (>51); POTASSIUM SERUM 4.9 MEQ/L (3.5-5.1); TOTAL PROTEIN 6.5 GM/DL (6.4-8.2)
[2021-10-13] MEDS: SYMBICORT 80/4.5MCG INHALER 6GM INH SCH ×2 (07:31→19:53)
[2021-10-13] MEDS: FLUoxetine 20 MG CAP PO SCH (08:35)
[2021-10-13] MEDS: SODIUM BICARBONATE 325 MG TAB PO SCH ×3 (08:35→22:07)
[2021-10-13] MEDS: LACTOBACILLUS ACIDOPHILUS CAP (BACID) PO SCH ×2 (08:35→17:54)
[2021-10-13] MEDS: CYANOCOBALAMIN 500 MCG TAB PO SCH (08:35)
[2021-10-13] MEDS: TACROLIMUS 1 MG CAP (J7507) PO SCH ×2 (08:35→22:07)
[2021-10-13] MEDS: PREGABALIN 75 MG CAP(LYRICA) PO SCH ×2 (08:36→21:00)
[2021-10-13] MEDS: MAGNESIUM OXIDE 400MG TAB (MAG-OX) PO SCH ×2 (08:36→22:08)
[2021-10-13] MEDS: MULTIVITAMINS/MINERALS THERAP 1 TAB PO SCH (08:36)
[2021-10-13] MEDS: buPROPion **XL** TABLET 150MG (WELLBUTRIN XL) PO SCH (08:36)
[2021-10-13] MEDS: FLUTICASONE PROP 0.05% NASAL SPRAY 16 GM (FLONASE) NARES SCH (08:36)
[2021-10-13] MEDS: FERROUS SULFATE 325MG TAB PO SCH (08:39)
[2021-10-13 14:00] VITALS: BP 157/92
[2021-10-13] MEDS ORDERED: amLODIPine 5 MG TAB PO ONE (14:30)
[2021-10-13 14:49] VITALS: BP 157/89
[2021-10-13] MEDS: ALBUTEROL 90 MCG/ACT 8GM HFA INHALER INH PRN (16:30)
[2021-10-13 17:38] VITALS: BP 158/86
[2021-10-13 20:00] VITALS: BP 120/59
[2021-10-13] MEDS ORDERED: REMDESIVIR 200 MG in NS 250 ML IV ONE (21:00)
[2021-10-13] MEDS: RAMELTEON 8 MG TAB (ROZEREM) PO PRN (22:08)
[2021-10-13] MEDS: CEFDINIR 300 MG CAP (OMNICEF) PO SCH (22:08)
[2021-10-13] MEDS ORDERED: SODIUM CHLORIDE 0.9% INJ 10 ML SYR IV ONE (23:00)
[2021-10-14 04:00] VITALS: BP 166/95
[2021-10-14] MEDS: HEPARIN SOD (PORCINE) 5000UNITS/ML 1ML VIAL/SYRINGE SC SCH ×3 (05:20→20:34)
[2021-10-14] MEDS: ACETAMINOPHEN TAB 650MG DOSE (2X325MG) PO PRN ×4 (05:20→21:51)
[2021-10-14 07:27] LABS: HEMATOCRIT 25.4 % (36.0-47.0); MEAN CORPUSCULAR HEMOGLOBIN 29.5 pg (27.0-33.0); MEAN CORPUSCULAR HGB CONC 31.5 g/dl (32.0-36.5); MEAN CORPUSCULAR VOLUME 93.7 fl (80.0-96.0); PLATELET COUNT, AUTOMATED 248 10^3/uL (150-450); RED BLOOD COUNT 2.71 10^6/uL (4.00-5.40); WHITE BLOOD COUNT 9.6 10^3/uL (4.0-10.0)
[2021-10-14 07:50] LABS: ALBUMIN 2.1 GM/DL (3.2-5.2); BILIRUBIN,TOTAL 0.2 MG/DL (0.2-1.0); CALCIUM LEVEL 9.8 MG/DL (8.5-10.1); CREATININE FOR GFR 1.12 MG/DL (0.55-1.30); GLOMERULAR FILTRATION RATE 53.8 (>51); POTASSIUM SERUM 5.2 MEQ/L (3.5-5.1); TOTAL PROTEIN 6.2 GM/DL (6.4-8.2)
[2021-10-14] MEDS: SYMBICORT 80/4.5MCG INHALER 6GM INH SCH ×2 (08:07→20:00)
[2021-10-14] MEDS: MULTIVITAMINS/MINERALS THERAP 1 TAB PO SCH (08:41)
[2021-10-14] MEDS: FLUoxetine 20 MG CAP PO SCH (08:41)
[2021-10-14] MEDS: TACROLIMUS 1 MG CAP (J7507) PO SCH ×2 (08:41→20:34)
[2021-10-14] MEDS: SODIUM BICARBONATE 325 MG TAB PO SCH ×3 (08:41→20:35)
[2021-10-14] MEDS: FERROUS SULFATE 325MG TAB PO SCH (08:42)
[2021-10-14] MEDS: MAGNESIUM OXIDE 400MG TAB (MAG-OX) PO SCH ×2 (08:42→20:35)
[2021-10-14] MEDS: LACTOBACILLUS ACIDOPHILUS CAP (BACID) PO SCH ×2 (08:42→17:49)
[2021-10-14] MEDS: buPROPion **XL** TABLET 150MG (WELLBUTRIN XL) PO SCH (08:42)
[2021-10-14] MEDS: CYANOCOBALAMIN 500 MCG TAB PO SCH (08:42)
[2021-10-14] MEDS: CEFDINIR 300 MG CAP (OMNICEF) PO SCH ×2 (08:42→20:34)
[2021-10-14] MEDS: PREGABALIN 75 MG CAP(LYRICA) PO SCH ×2 (08:42→08:44)
[2021-10-14] MEDS: FLUTICASONE PROP 0.05% NASAL SPRAY 16 GM (FLONASE) NARES SCH (08:43)
[2021-10-14 14:00] VITALS: BP 126/67
[2021-10-14] MEDS ORDERED: PATIROMER SORBITEX CALCIUM 8.4 GM POWDER PACKET (VELTASSA) PO ONE (15:00)
[2021-10-14 18:45] LABS: MAGNESIUM LEVEL 1.4 MG/DL (1.7-2.2)
[2021-10-14 19:37] VITALS: BP 147/69
[2021-10-14 20:04] LABS: CALCIUM LEVEL 9.8 MG/DL (8.5-10.1); CREATININE FOR GFR 1.07 MG/DL (0.55-1.30); GLOMERULAR FILTRATION RATE 56.7 (>51); POTASSIUM SERUM 5.4 MEQ/L (3.5-5.1)
[2021-10-14] MEDS: REMDESIVIR 100 MG in NS 250 ML IV SCH (20:33)
[2021-10-14] MEDS: SODIUM CHLORIDE 0.9% INJ 10 ML SYR IV SCH (20:34)
[2021-10-14] MEDS: RAMELTEON 8 MG TAB (ROZEREM) PO PRN (20:35)
[2021-10-14] MEDS: FAMOTIDINE 20 MG TAB PO SCH (20:35)
[2021-10-15] MEDS: ACETAMINOPHEN TAB 650MG DOSE (2X325MG) PO PRN ×3 (01:47→17:52)
[2021-10-15] MEDS: HEPARIN SOD (PORCINE) 5000UNITS/ML 1ML VIAL/SYRINGE SC SCH ×3 (05:31→21:30)
[2021-10-15 05:32] VITALS: BP 158/76
[2021-10-15] MEDS ORDERED: SOD POLYSTYRENE SULFONATE SUSP 15 GM/60 ML UD PO ONE (06:00)
[2021-10-15 07:55] LABS: HEMATOCRIT 26.7 % (36.0-47.0); HEMOGLOBIN 8.6 g/dl (12.0-15.5); MEAN CORPUSCULAR HEMOGLOBIN 30.9 pg (27.0-33.0); MEAN CORPUSCULAR HGB CONC 32.2 g/dl (32.0-36.5); PLATELET COUNT, AUTOMATED 218 10^3/uL (150-450); RED BLOOD COUNT 2.78 10^6/uL (4.00-5.40); WHITE BLOOD COUNT 7.6 10^3/uL (4.0-10.0)
[2021-10-15 08:14] LABS: ALBUMIN 2.3 GM/DL (3.2-5.2); BILIRUBIN,TOTAL 0.2 MG/DL (0.2-1.0); CALCIUM LEVEL 9.8 MG/DL (8.5-10.1); CREATININE FOR GFR 1.08 MG/DL (0.55-1.30); GLOMERULAR FILTRATION RATE 56.1 (>51); POTASSIUM SERUM 5.8 MEQ/L (3.5-5.1); TOTAL PROTEIN 6.1 GM/DL (6.4-8.2)
[2021-10-15] MEDS: FLUoxetine 20 MG CAP PO SCH (09:45)
[2021-10-15] MEDS: CYANOCOBALAMIN 500 MCG TAB PO SCH (09:45)
[2021-10-15] MEDS: MULTIVITAMINS/MINERALS THERAP 1 TAB PO SCH (09:45)
[2021-10-15] MEDS: FERROUS SULFATE 325MG TAB PO SCH (09:45)
[2021-10-15] MEDS: CEFDINIR 300 MG CAP (OMNICEF) PO SCH (09:46)
[2021-10-15] MEDS: SODIUM BICARBONATE 325 MG TAB PO SCH ×3 (09:46→21:31)
[2021-10-15] MEDS: MAGNESIUM OXIDE 400MG TAB (MAG-OX) PO SCH ×2 (09:46→21:31)
[2021-10-15] MEDS: buPROPion **XL** TABLET 150MG (WELLBUTRIN XL) PO SCH (09:46)
[2021-10-15] MEDS: FLUTICASONE PROP 0.05% NASAL SPRAY 16 GM (FLONASE) NARES SCH (09:47)
[2021-10-15] MEDS: TACROLIMUS 1 MG CAP (J7507) PO SCH ×2 (09:47→21:31)
[2021-10-15] MEDS: LACTOBACILLUS ACIDOPHILUS CAP (BACID) PO SCH ×2 (10:12→17:52)
[2021-10-15] MEDS: PATIROMER SORBITEX CALCIUM 8.4 GM POWDER PACKET (VELTASSA) PO SCH (12:24)
[2021-10-15 13:32] LABS: CALCIUM LEVEL 9.8 MG/DL (8.5-10.1); CREATININE FOR GFR 1.1 MG/DL (0.55-1.30); GLOMERULAR FILTRATION RATE 54.9 (>51); POTASSIUM SERUM 4.9 MEQ/L (3.5-5.1)
[2021-10-15 14:07] VITALS: BP 110/58
[2021-10-15 21:00] VITALS: BP 139/70
[2021-10-15] MEDS: SYMBICORT 80/4.5MCG INHALER 6GM INH SCH ×2 (21:23→21:24)
[2021-10-15] MEDS: REMDESIVIR 100 MG in NS 250 ML IV SCH (21:29)
[2021-10-15] MEDS: RAMELTEON 8 MG TAB (ROZEREM) PO PRN (21:31)
[2021-10-15 22:02] LABS: MAGNESIUM LEVEL 1.8 MG/DL (1.7-2.2)
[2021-10-15] MEDS: SODIUM CHLORIDE 0.9% INJ 10 ML SYR IV SCH (22:56)
[2021-10-16] MEDS: CEFDINIR 300 MG CAP (OMNICEF) PO SCH ×2 (00:06→08:27)
[2021-10-16] MEDS: ACETAMINOPHEN TAB 650MG DOSE (2X325MG) PO PRN ×3 (00:10→11:15)
[2021-10-16 04:30] VITALS: BP 141/74
[2021-10-16] MEDS: HEPARIN SOD (PORCINE) 5000UNITS/ML 1ML VIAL/SYRINGE SC SCH (06:00)
[2021-10-16] MEDS: SYMBICORT 80/4.5MCG INHALER 6GM INH SCH (07:31)
[2021-10-16] MEDS: FLUoxetine 20 MG CAP PO SCH (08:28)
[2021-10-16] MEDS: LACTOBACILLUS ACIDOPHILUS CAP (BACID) PO SCH (08:28)
[2021-10-16] MEDS: buPROPion **XL** TABLET 150MG (WELLBUTRIN XL) PO SCH (08:28)
[2021-10-16] MEDS: SODIUM BICARBONATE 325 MG TAB PO SCH (08:28)
[2021-10-16] MEDS: MULTIVITAMINS/MINERALS THERAP 1 TAB PO SCH (08:28)
[2021-10-16] MEDS: FERROUS SULFATE 325MG TAB PO SCH (08:28)
[2021-10-16] MEDS: FLUTICASONE PROP 0.05% NASAL SPRAY 16 GM (FLONASE) NARES SCH (08:29)
[2021-10-16] MEDS: MAGNESIUM OXIDE 400MG TAB (MAG-OX) PO SCH (08:29)
[2021-10-16] MEDS: CYANOCOBALAMIN 500 MCG TAB PO SCH (08:29)
[2021-10-16 08:38] LABS: HEMATOCRIT 28.2 % (36.0-47.0); HEMOGLOBIN 8.7 g/dl (12.0-15.5); MEAN CORPUSCULAR HEMOGLOBIN 29.9 pg (27.0-33.0); MEAN CORPUSCULAR HGB CONC 30.9 g/dl (32.0-36.5); MEAN CORPUSCULAR VOLUME 96.9 fl (80.0-96.0); PLATELET COUNT, AUTOMATED 299 10^3/uL (150-450); RED BLOOD COUNT 2.91 10^6/uL (4.00-5.40); WHITE BLOOD COUNT 6.5 10^3/uL (4.0-10.0)
[2021-10-16] MEDS: TACROLIMUS 1 MG CAP (J7507) PO SCH (08:42)
[2021-10-16 09:32] LABS: ALBUMIN 2.4 GM/DL (3.2-5.2); BILIRUBIN,TOTAL 0.2 MG/DL (0.2-1.0); CALCIUM LEVEL 10.2 MG/DL (8.5-10.1); CREATININE FOR GFR 1.2 MG/DL (0.55-1.30); GLOMERULAR FILTRATION RATE 49.7 (>51); POTASSIUM SERUM 5.1 MEQ/L (3.5-5.1); TOTAL PROTEIN 7.1 GM/DL (6.4-8.2)
[2021-10-16] MEDS: PATIROMER SORBITEX CALCIUM 8.4 GM POWDER PACKET (VELTASSA) PO SCH (11:15)
[2021-10-16] MEDS ORDERED: CEFD300CAP PO (11:56)
== END 2021-10-16 13:30 | disposition home or self-care (01) | DRG 689 ==
LOC: M ED 14:23 → M ED INP 10-08 02:14 → M MS5PR 10-08 05:30 → M 4MAIN 10-13 17:39
PROVIDERS: ADMIT Internal Medicine; ATTEND Family Medicine
PROC: XW033E5 Introduction of Remdesivir Anti-infective into Peripheral Vein, Percutaneous Approach, New Technology Group 5 (ICD-10-PCS; principal; 2021-10-13)
DX: N10 Acute pyelonephritis (principal); U07.1 COVID-19; Z94.0 Kidney transplant status; R78.81 Bacteremia; Z20.822 Contact with and (suspected) exposure to COVID-19; Z79.899 Other long term (current) drug therapy; Z88.6 Allergy status to analgesic agent; F32.A Depression, unspecified; J45.909 Unspecified asthma, uncomplicated; N17.9 Acute kidney failure, unspecified; K21.9 Gastro-esophageal reflux disease without esophagitis; N39.0 Urinary tract infection, site not specified; B96.20 Unspecified Escherichia coli [E. coli] as the cause of diseases classified elsewhere; D64.9 Anemia, unspecified; R74.01 Elevation of levels of liver transaminase levels; E87.5 Hyperkalemia; Z86.16 Personal history of COVID-19

== ENCOUNTER 2021-11-19 11:47 | Emergency (ER) | payer MEDICARE ==
[~2021-11-19] VITALS: Ht 165.1 cm; Wt 73.6 kg
[~2021-11-19 11:47] MED LIST changes: +ACET650T61 PO; +CEFD300CAP PO; +QC A650T3 PO; +VITMTA PO
[2021-11-19 12:52] LABS: BASO % 0.6 % (0.0-1.0); EOS # 0.4 10^3/uL (0.0-0.5); EOS % 6.4 % (0.0-3.0); HEMATOCRIT 32.1 % (36.0-47.0); HEMOGLOBIN 10.2 g/dl (12.0-15.5); LYMPH # 0.9 10^3/uL (1.5-5.0); LYMPH % 13.6 % (24.0-44.0); MEAN CORPUSCULAR HEMOGLOBIN 30.8 pg (27.0-33.0); MEAN CORPUSCULAR HGB CONC 31.8 g/dl (32.0-36.5); MONO # 0.5 10^3/uL (0.0-0.8); MONO % 8.5 % (2.0-8.0); NEUTROPHILS # 4.4 10^3/uL (1.5-8.5); NEUTROPHILS % 70.6 % (36.0-66.0); PLATELET COUNT, AUTOMATED 176 10^3/uL (150-450); RED BLOOD COUNT 3.31 10^6/uL (4.00-5.40); WHITE BLOOD COUNT 6.2 10^3/uL (4.0-10.0)
[2021-11-19 13:21] LABS: ALBUMIN 3.2 GM/DL (3.2-5.2); ALT/SGPT 121 U/L (12-78); BILIRUBIN,DIRECT < 0.1 MG/DL (0.0-0.2); BILIRUBIN,TOTAL 0.2 MG/DL (0.2-1.0); BLOOD UREA NITROGEN 48 MG/DL (7-18); CALCIUM LEVEL 10.1 MG/DL (8.5-10.1); CARBON DIOXIDE LEVEL 22 MEQ/L (21-32); CHLORIDE LEVEL 114 MEQ/L (98-107); GLOMERULAR FILTRATION RATE 49.5 (>51); GLUCOSE, FASTING 126 MG/DL (70-100); LIPASE 112 U/L (73-393); MAGNESIUM LEVEL 1.7 MG/DL (1.8-2.4); SODIUM LEVEL 139 MEQ/L (136-145); TOTAL PROTEIN 6.6 GM/DL (6.4-8.2)
[2021-11-19] MEDS ORDERED: ACETAMINOPHEN 500 MG TAB PO ONE (13:40)
[2021-11-19] MEDS ORDERED: PROMETHAZINE INJ 25 MG/ML VIAL (J2550) IV ONE (13:40)
[2021-11-19 14:27] LABS: HIV 1&2 SCREEN CENTAUR NEGATIVE (NEGATIVE)
[2021-11-19 17:22] LABS: HEPATITIS B SURFACE ANTIGEN NEGATIVE (NEGATIVE)
[2021-11-19] MEDS ORDERED: PATIROMER SORBITEX CALCIUM 8.4 GM POWDER PACKET (VELTASSA) PO ONE (17:25)
[2021-11-19 17:50] LABS: HEPATITIS C VIRUS ABY INDEX 0.1 INDEX (<0.8)
[2021-11-19 17:51] LABS: HEPATITIS B CORE ANTIBODY IGM NEGATIVE (NEGATIVE)
[2021-11-19] MEDS ORDERED: PROM12.56 PO (18:14)
[2021-11-19] MEDS ORDERED: VELT1POW PO (18:14)
[2021-11-19 18:25] VITALS: BP 143/61
== END 2021-11-19 18:51 | disposition home or self-care (01) ==
LOC: M ED 11:47
DX: R53.83 Other fatigue (principal); R11.0 Nausea; E87.5 Hyperkalemia; J45.909 Unspecified asthma, uncomplicated; I10 Essential (primary) hypertension; N28.9 Disorder of kidney and ureter, unspecified; Z94.0 Kidney transplant status; Z79.899 Other long term (current) drug therapy; Z88.8 Allergy status to other drugs, medicaments and biological substances

== ENCOUNTER → 2021-12-15 | Outpatient (CLI) | payer MEDICARE ==
[~2021-12-15] MED LIST changes: +PROM12.56 PO; +VELT1POW PO
[2021-12-15 11:46] LABS: BASO # 0.1 10^3/uL (0.0-0.2); BASO % 0.6 % (0.0-1.0); EOS # 0.9 10^3/uL (0.0-0.5); EOS % 10.6 % (0.0-3.0); LYMPH # 1.7 10^3/uL (1.5-5.0); LYMPH % 20.3 % (24.0-44.0); MEAN CORPUSCULAR HEMOGLOBIN 30.2 pg (27.0-33.0); MEAN CORPUSCULAR HGB CONC 31.6 g/dl (32.0-36.5); MEAN CORPUSCULAR VOLUME 95.5 fl (80.0-96.0); MONO # 0.7 10^3/uL (0.0-0.8); MONO % 8.9 % (2.0-8.0); NEUTROPHILS # 4.9 10^3/uL (1.5-8.5); NEUTROPHILS % 59.2 % (36.0-66.0); PLATELET COUNT, AUTOMATED 268 10^3/uL (150-450); RED BLOOD COUNT 3.98 10^6/uL (4.00-5.40); WHITE BLOOD COUNT 8.2 10^3/uL (4.0-10.0)
[2021-12-15 11:50] LABS: APPEARANCE, URINE HAZY (CLEAR); BACTERIA, URINE AUTO 2+ (NEGATIVE); BILIRUBIN, URINE AUTO NEGATIVE (NEGATIVE); BLOOD, URINE BLOOD NEGATIVE (NEGATIVE); COLOR, URINE YELLOW (YELLOW); GLUCOSE, URINE (UA) AUTO NEGATIVE (NEGATIVE); KETONE, URINE AUTO NEGATIVE (NEGATIVE); LEUKOCYTE ESTERASE, URINE AUTO 3+ (NEGATIVE); NITRITE, URINE AUTO NEGATIVE (NEGATIVE); PROTEIN, URINE AUTO 1+ mg/dL (NEGATIVE); RBC, URINE AUTO 20 /HPF (0-3); SPECIFIC GRAVITY URINE AUTO 1.018 (1.002-1.035); SQUAMOUS EPITHELIAL CELL UR AU 0 /HPF (0-6); UROBILINOGEN, URINE AUTO 0.2 mg/dL (0.0-2.0); WBC, URINE AUTO TNTC /HPF (0-3)
[2021-12-15 12:05] LABS: CREATININE,RANDOM URINE 89.7 MG/DL
[2021-12-15 12:14] LABS: ALBUMIN 3.7 GM/DL (3.2-5.2); BILIRUBIN,DIRECT 0.1 MG/DL (0.0-0.2); BILIRUBIN,TOTAL 0.4 MG/DL (0.2-1.0); CALCIUM LEVEL 10.6 MG/DL (8.5-10.1); CREATININE FOR GFR 1.46 MG/DL (0.55-1.30); GLOMERULAR FILTRATION RATE 39.5 (>51); MAGNESIUM LEVEL 2.1 MG/DL (1.8-2.4); PHOSPHORUS LEVEL 2.9 MG/DL (2.5-4.9); POTASSIUM SERUM 5.2 MEQ/L (3.5-5.1); TOTAL PROTEIN 7.4 GM/DL (6.4-8.2)
== END ==
LOC: M LAB 10:23
PROVIDERS: ATTEND Internal Medicine Nephrology
DX: N18.5 Chronic kidney disease, stage 5 (principal); D84.9 Immunodeficiency, unspecified; Z94.0 Kidney transplant status; Z79.899 Other long term (current) drug therapy

== ENCOUNTER → 2021-12-31 | Outpatient (CLI) | payer MEDICARE | LOC: M RAD 14:46 | PROVIDERS: ATTEND Family Medicine | DX: M25.761 Osteophyte, right knee (principal); M25.561 Pain in right knee ==

== ENCOUNTER 2022-01-07 15:25 | Inpatient (IN) | payer MEDICARE ==
[~2022-01-07] VITALS: Ht 165.1 cm; Wt 78.8 kg
[2022-01-07] MEDS ORDERED: ONDANSETRON 4MG ORAL DISINTEGRATING TAB PO ONE (18:30)
[2022-01-07 18:57] LABS: BASO % 0.3 % (0.0-1.0); EOS # 0.3 10^3/uL (0.0-0.5); HEMATOCRIT 37.4 % (36.0-47.0); HEMOGLOBIN 11.6 g/dl (12.0-15.5); LYMPH # 0.9 10^3/uL (1.5-5.0); LYMPH % 6.6 % (24.0-44.0); MEAN CORPUSCULAR HEMOGLOBIN 30.1 pg (27.0-33.0); MEAN CORPUSCULAR VOLUME 97.1 fl (80.0-96.0); MONO # 1.2 10^3/uL (0.0-0.8); MONO % 8.6 % (2.0-8.0); NEUTROPHILS # 11.2 10^3/uL (1.5-8.5); NEUTROPHILS % 81.9 % (36.0-66.0); PLATELET COUNT, AUTOMATED 212 10^3/uL (150-450); RED BLOOD COUNT 3.85 10^6/uL (4.00-5.40); WHITE BLOOD COUNT 13.7 10^3/uL (4.0-10.0)
[2022-01-07] MEDS ORDERED: ISOVUE-370 76% 100ML VIAL As Ordered ONE ×2 (19:13→19:41)
[2022-01-07 19:23] LABS: ALBUMIN 3.4 GM/DL (3.2-5.2); BILIRUBIN,DIRECT 0.2 MG/DL (0.0-0.2); BILIRUBIN,TOTAL 0.3 MG/DL (0.2-1.0); CALCIUM LEVEL 10.7 MG/DL (8.5-10.1); CREATININE FOR GFR 2.07 MG/DL (0.55-1.30); GLOMERULAR FILTRATION RATE 26.4 (>51); POTASSIUM SERUM 5.4 MEQ/L (3.5-5.1); TOTAL PROTEIN 7.5 GM/DL (6.4-8.2)
[2022-01-07] MEDS ORDERED: NS 500 ML IV ONE (20:10)
[2022-01-07] MEDS ORDERED: cefTRIAXone SOD 1 GM in D5W MINI-BAG PLUS 50 ML IV ONE (20:20)
[2022-01-07] MEDS ORDERED: MOM 30ML SUSPENSION UDC PO PRN (22:35)
[2022-01-07] MEDS ORDERED: HOME MED LIST COMPLETE! XX SCH (22:40)
[2022-01-07] MEDS ORDERED: SOD POLYSTYRENE SULFONATE SUSP 15 GM/60 ML UD PO ONE (22:55)
[2022-01-07] MEDS: ACETAMINOPHEN TAB 650MG DOSE (2X325MG) PO PRN (22:56)
[2022-01-07] MEDS: NS 1,000 ML IV SCH (22:56)
[2022-01-08] MEDS: HEPARIN SOD (PORCINE) 5000UNITS/ML 1ML VIAL/SYRINGE SC SCH ×3 (06:00→21:21)
[2022-01-08 07:35] LABS: HEMATOCRIT 34.5 % (36.0-47.0); HEMOGLOBIN 10.8 g/dl (12.0-15.5); MEAN CORPUSCULAR HEMOGLOBIN 30.9 pg (27.0-33.0); MEAN CORPUSCULAR HGB CONC 31.3 g/dl (32.0-36.5); MEAN CORPUSCULAR VOLUME 98.6 fl (80.0-96.0); PLATELET COUNT, AUTOMATED 188 10^3/uL (150-450); WHITE BLOOD COUNT 9.6 10^3/uL (4.0-10.0)
[2022-01-08 07:57] LABS: ALBUMIN 2.8 GM/DL (3.2-5.2); BILIRUBIN,TOTAL 0.3 MG/DL (0.2-1.0); CALCIUM LEVEL 10.1 MG/DL (8.5-10.1); CREATININE FOR GFR 1.51 MG/DL (0.55-1.30); GLOMERULAR FILTRATION RATE 37.9 (>51); MAGNESIUM LEVEL 2.4 MG/DL (1.8-2.4); POTASSIUM SERUM 5.1 MEQ/L (3.5-5.1); TOTAL PROTEIN 6.3 GM/DL (6.4-8.2)
[2022-01-08] MEDS ORDERED: PROMETHAZINE 25MG/ML 1ML VIAL IV ONE (08:25)
[2022-01-08] MEDS ORDERED: PROMETHAZINE 25MG/ML 1ML VIAL IV PRN (08:25)
[2022-01-08] MEDS ORDERED: MORPHINE 2 MG/ML 1ML VIAL IV ONE (08:40)
[2022-01-08] MEDS ORDERED: TACROLIMUS 1 MG CAP (J7507) PO SCH (09:00)
[2022-01-08] MEDS ORDERED: SOD POLYSTYRENE SULFONATE SUSP 15 GM/60 ML UD PO ONE ×2 (09:00→16:00)
[2022-01-08] MEDS: NS 1,000 ML IV SCH ×2 (09:31→17:29)
[2022-01-08 10:09] VITALS: BP 158/89
[2022-01-08] MEDS: buPROPion **XL** TABLET 150MG (WELLBUTRIN XL) PO SCH (10:24)
[2022-01-08] MEDS: FLUoxetine 20MG CAP PO SCH (10:24)
[2022-01-08] MEDS: MAGNESIUM OXIDE 400MG TAB (MAG-OX) PO SCH ×2 (10:24→21:22)
[2022-01-08] MEDS: SODIUM BICARBONATE 325 MG TAB PO SCH ×3 (10:24→21:20)
[2022-01-08] MEDS: TACROLIMUS 1 MG CAP (J7507) PO SCH ×2 (10:25→21:22)
[2022-01-08] MEDS ORDERED: PERCOCET 5MG/325MG TAB PO PRN (10:40)
[2022-01-08 11:32] LABS: CREATININE,RANDOM URINE 35.8 MG/DL
[2022-01-08] MEDS ORDERED: PATIROMER SORBITEX CALCIUM 8.4 GM POWDER PACKET (VELTASSA) PO SCH (11:50)
[2022-01-08] MEDS ORDERED: ALBUTEROL 90 MCG/ACT 8GM HFA INHALER INH PRN (13:00)
[2022-01-08 14:00] VITALS: BP 144/88
[2022-01-08] MEDS ORDERED: PREGABALIN 75 MG CAP(LYRICA) PO ONE (14:00)
[2022-01-08] MEDS: MULTIVITAMINS/MINERALS THERAP 1 TAB PO SCH (14:03)
[2022-01-08] MEDS: CYANOCOBALAMIN 500 MCG TAB PO SCH (14:03)
[2022-01-08] MEDS: FERROUS SULFATE 325MG TAB PO SCH (14:03)
[2022-01-08] MEDS: **hydrALAZINE** 10 MG TAB PO SCH ×3 (14:06→23:17)
[2022-01-08] MEDS ORDERED: MORPHINE 2 MG/ML 1ML VIAL IV PRN (14:40)
[2022-01-08] MEDS: PERCOCET 5MG/325MG TAB PO PRN (15:46)
[2022-01-08] MEDS: SYMBICORT 80/4.5MCG INHALER 6GM INH SCH (20:23)
[2022-01-08] MEDS ORDERED: PREGABALIN 75 MG CAP(LYRICA) PO SCH (21:00)
[2022-01-08] MEDS: FAMOTIDINE 20 MG TAB PO SCH (21:21)
[2022-01-08 21:54] VITALS: BP 136/76
[2022-01-09] MEDS: PERCOCET 5MG/325MG TAB PO PRN ×4 (02:16→20:08)
[2022-01-09] MEDS: **hydrALAZINE** 10 MG TAB PO SCH ×3 (05:44→18:00)
[2022-01-09] MEDS: HEPARIN SOD (PORCINE) 5000UNITS/ML 1ML VIAL/SYRINGE SC SCH ×3 (05:49→22:37)
[2022-01-09 06:00] VITALS: BP 139/86
[2022-01-09] MEDS: SYMBICORT 80/4.5MCG INHALER 6GM INH SCH ×2 (07:34→20:17)
[2022-01-09 08:55] LABS: BASO % 0.5 % (0.0-1.0); EOS # 0.3 10^3/uL (0.0-0.5); EOS % 4.7 % (0.0-3.0); HEMATOCRIT 35.3 % (36.0-47.0); HEMOGLOBIN 10.8 g/dl (12.0-15.5); LYMPH # 1.2 10^3/uL (1.5-5.0); LYMPH % 19.2 % (24.0-44.0); MEAN CORPUSCULAR HEMOGLOBIN 30.4 pg (27.0-33.0); MEAN CORPUSCULAR HGB CONC 30.6 g/dl (32.0-36.5); MEAN CORPUSCULAR VOLUME 99.4 fl (80.0-96.0); MONO # 0.9 10^3/uL (0.0-0.8); MONO % 14.4 % (2.0-8.0); NEUTROPHILS # 3.9 10^3/uL (1.5-8.5); NEUTROPHILS % 60.7 % (36.0-66.0); PLATELET COUNT, AUTOMATED 194 10^3/uL (150-450); RED BLOOD COUNT 3.55 10^6/uL (4.00-5.40); WHITE BLOOD COUNT 6.4 10^3/uL (4.0-10.0)
[2022-01-09 09:09] LABS: CALCIUM LEVEL 10.4 MG/DL (8.5-10.1); CREATININE FOR GFR 1.2 MG/DL (0.55-1.30); GLOMERULAR FILTRATION RATE 49.5 (>51); POTASSIUM SERUM 4.3 MEQ/L (3.5-5.1)
[2022-01-09] MEDS: MAGNESIUM OXIDE 400MG TAB (MAG-OX) PO SCH ×2 (09:09→20:07)
[2022-01-09] MEDS: FERROUS SULFATE 325MG TAB PO SCH (09:09)
[2022-01-09] MEDS: MULTIVITAMINS/MINERALS THERAP 1 TAB PO SCH (09:09)
[2022-01-09] MEDS: SODIUM BICARBONATE 325 MG TAB PO SCH ×3 (09:09→20:07)
[2022-01-09] MEDS: FLUoxetine 20MG CAP PO SCH (09:09)
[2022-01-09] MEDS: CYANOCOBALAMIN 500 MCG TAB PO SCH (09:09)
[2022-01-09] MEDS: buPROPion **XL** TABLET 150MG (WELLBUTRIN XL) PO SCH (09:09)
[2022-01-09] MEDS: TACROLIMUS 1 MG CAP (J7507) PO SCH ×2 (09:10→20:08)
[2022-01-09] MEDS ORDERED: cefTRIAXone SOD 1 GM in D5W MINI-BAG PLUS 50 ML IV SCH (11:00)
[2022-01-09 11:15] VITALS: BP 144/92
[2022-01-09 14:00] VITALS: BP 150/78
[2022-01-09 20:04] VITALS: BP 138/75
[2022-01-09] MEDS: FAMOTIDINE 20 MG TAB PO SCH (20:07)
[2022-01-10] MEDS: PERCOCET 5MG/325MG TAB PO PRN (04:17)
[2022-01-10] MEDS: HEPARIN SOD (PORCINE) 5000UNITS/ML 1ML VIAL/SYRINGE SC SCH ×3 (04:17→20:28)
[2022-01-10 06:00] VITALS: BP 160/90
[2022-01-10 06:56] LABS: BASO # 0.1 10^3/uL (0.0-0.2); BASO % 0.6 % (0.0-1.0); EOS # 0.5 10^3/uL (0.0-0.5); EOS % 5.6 % (0.0-3.0); HEMATOCRIT 32.8 % (36.0-47.0); LYMPH # 1.4 10^3/uL (1.5-5.0); LYMPH % 15.8 % (24.0-44.0); MEAN CORPUSCULAR HEMOGLOBIN 29.7 pg (27.0-33.0); MEAN CORPUSCULAR HGB CONC 30.5 g/dl (32.0-36.5); MEAN CORPUSCULAR VOLUME 97.3 fl (80.0-96.0); MONO # 1.2 10^3/uL (0.0-0.8); NEUTROPHILS # 5.6 10^3/uL (1.5-8.5); PLATELET COUNT, AUTOMATED 193 10^3/uL (150-450); RED BLOOD COUNT 3.37 10^6/uL (4.00-5.40); WHITE BLOOD COUNT 8.9 10^3/uL (4.0-10.0)
[2022-01-10] MEDS: SYMBICORT 80/4.5MCG INHALER 6GM INH SCH ×2 (07:49→19:26)
[2022-01-10] MEDS ORDERED: diphenhydrAMINE 50MG/ML VIAL (J1200) IV ONE (08:25)
[2022-01-10] MEDS ORDERED: LevoFLOXacin IV 750 MG in IV 1 EA IV SCH (08:25)
[2022-01-10] MEDS: CYANOCOBALAMIN 500 MCG TAB PO SCH (08:57)
[2022-01-10] MEDS: FERROUS SULFATE 325MG TAB PO SCH (08:57)
[2022-01-10] MEDS: SODIUM BICARBONATE 325 MG TAB PO SCH ×3 (08:57→20:27)
[2022-01-10] MEDS: TACROLIMUS 1 MG CAP (J7507) PO SCH ×2 (08:57→20:28)
[2022-01-10] MEDS: MULTIVITAMINS/MINERALS THERAP 1 TAB PO SCH (08:57)
[2022-01-10] MEDS: buPROPion **XL** TABLET 150MG (WELLBUTRIN XL) PO SCH (08:58)
[2022-01-10] MEDS: MAGNESIUM OXIDE 400MG TAB (MAG-OX) PO SCH ×2 (08:58→20:28)
[2022-01-10] MEDS: FLUoxetine 20MG CAP PO SCH (08:58)
[2022-01-10] MEDS: LevoFLOXacin 750 MG TABLET PO SCH (09:42)
[2022-01-10 11:11] LABS: CALCIUM LEVEL 10.5 MG/DL (8.5-10.1); CREATININE FOR GFR 1.23 MG/DL (0.55-1.30); GLOMERULAR FILTRATION RATE 48.1 (>51); POTASSIUM SERUM 4.2 MEQ/L (3.5-5.1)
[2022-01-10 14:00] VITALS: BP 148/82
[2022-01-10] MEDS: ACETAMINOPHEN TAB 650MG DOSE (2X325MG) PO PRN ×2 (14:24→20:27)
[2022-01-10] MEDS: FAMOTIDINE 20 MG TAB PO SCH (20:28)
[2022-01-10 22:00] VITALS: BP 145/81
[2022-01-11] MEDS: ACETAMINOPHEN TAB 650MG DOSE (2X325MG) PO PRN ×3 (01:42→14:10)
[2022-01-11] MEDS: LevoFLOXacin 750 MG TABLET PO SCH (05:18)
[2022-01-11] MEDS: HEPARIN SOD (PORCINE) 5000UNITS/ML 1ML VIAL/SYRINGE SC SCH ×2 (05:18→14:10)
[2022-01-11] MEDS: PERCOCET 5MG/325MG TAB PO PRN (05:19)
[2022-01-11 06:00] VITALS: BP 134/81
[2022-01-11] MEDS: SYMBICORT 80/4.5MCG INHALER 6GM INH SCH (08:15)
[2022-01-11] MEDS: SODIUM BICARBONATE 325 MG TAB PO SCH (08:59)
[2022-01-11] MEDS: buPROPion **XL** TABLET 150MG (WELLBUTRIN XL) PO SCH (08:59)
[2022-01-11] MEDS: MULTIVITAMINS/MINERALS THERAP 1 TAB PO SCH (08:59)
[2022-01-11] MEDS: TACROLIMUS 1 MG CAP (J7507) PO SCH (08:59)
[2022-01-11 09:00] VITALS: BP 134/81
[2022-01-11] MEDS: FLUoxetine 20MG CAP PO SCH (09:00)
[2022-01-11] MEDS: CYANOCOBALAMIN 500 MCG TAB PO SCH (09:00)
[2022-01-11] MEDS: MAGNESIUM OXIDE 400MG TAB (MAG-OX) PO SCH (09:00)
[2022-01-11] MEDS: FERROUS SULFATE 325MG TAB PO SCH (09:00)
[2022-01-11] MEDS ORDERED: CINACALCET 30 MG TAB (SENSIPAR) PO SCH (09:00)
[2022-01-11 09:37] LABS: HEMATOCRIT 34.1 % (36.0-47.0); HEMOGLOBIN 10.6 g/dl (12.0-15.5); MEAN CORPUSCULAR HEMOGLOBIN 29.7 pg (27.0-33.0); MEAN CORPUSCULAR HGB CONC 31.1 g/dl (32.0-36.5); MEAN CORPUSCULAR VOLUME 95.5 fl (80.0-96.0); PLATELET COUNT, AUTOMATED 233 10^3/uL (150-450); RED BLOOD COUNT 3.57 10^6/uL (4.00-5.40); WHITE BLOOD COUNT 5.4 10^3/uL (4.0-10.0)
[2022-01-11 10:04] LABS: EOSINOPHILS 3 % (0-3); LYMPHOCYTES 34 % (16-44); MONOCYTES 2 % (0-5); NEUTROPHILS 61 % (28-66)
[2022-01-11 10:05] LABS: CALCIUM LEVEL 10.9 MG/DL (8.5-10.1); CREATININE FOR GFR 1.21 MG/DL (0.55-1.30); PLATELET ESTIMATE NORMAL (NORMAL); POTASSIUM SERUM 5.2 MEQ/L (3.5-5.1)
[2022-01-11] MEDS ORDERED: PATIROMER SORBITEX CALCIUM 8.4 GM POWDER PACKET (VELTASSA) PO SCH (12:00)
[2022-01-11] MEDS ORDERED: LEVO750T13 PO (12:09)
[2022-01-11] MEDS ORDERED: CINA30TA5 PO (12:09)
[2022-01-11] MEDS ORDERED: VELT1POW PO (12:09)
== END 2022-01-11 15:10 | disposition home or self-care (01) | DRG 699 ==
LOC: M ED 15:25 → M ED INP 22:33 → ENRESERV 01-08 08:10 → M MS5PR 01-08 10:00
PROVIDERS: ADMIT Family Medicine; ATTEND Internal Medicine
DX: T86.13 Kidney transplant infection (principal); Q60.0 Renal agenesis, unilateral; N17.9 Acute kidney failure, unspecified; Z94.0 Kidney transplant status; E87.6 Hypokalemia; F32.A Depression, unspecified; J45.909 Unspecified asthma, uncomplicated; E86.0 Dehydration; I12.9 Hypertensive chronic kidney disease with stage 1 through stage 4 chronic kidney disease, or unspecified chronic kidney disease; N18.30 Chronic kidney disease, stage 3 unspecified; B96.20 Unspecified Escherichia coli [E. coli] as the cause of diseases classified elsewhere; L50.0 Allergic urticaria; T36.1X5A Adverse effect of cephalosporins and other beta-lactam antibiotics, initial encounter; Z79.899 Other long term (current) drug therapy; Z88.6 Allergy status to analgesic agent

== ENCOUNTER → 2022-01-21 | Outpatient (CLI) | payer MEDICARE ==
[~2022-01-21] MED LIST changes: -AZAT50TA2 PO; +AZAT50TA37 PO; +CINA30TA5 PO; +LEVO750T13 PO
[2022-01-21 10:08] LABS: APPEARANCE, URINE CLEAR (CLEAR); BACTERIA, URINE AUTO NEGATIVE (NEGATIVE); BILIRUBIN, URINE AUTO NEGATIVE (NEGATIVE); BLOOD, URINE BLOOD NEGATIVE (NEGATIVE); COLOR, URINE YELLOW (YELLOW); GLUCOSE, URINE (UA) AUTO NEGATIVE (NEGATIVE); KETONE, URINE AUTO NEGATIVE (NEGATIVE); LEUKOCYTE ESTERASE, URINE AUTO NEGATIVE (NEGATIVE); MUCUS, URINE SMALL (NEGATIVE); NITRITE, URINE AUTO NEGATIVE (NEGATIVE); PROTEIN, URINE AUTO NEGATIVE (NEGATIVE); RBC, URINE AUTO 0 /HPF (0-3); SPECIFIC GRAVITY URINE AUTO 1.016 (1.002-1.035); SQUAMOUS EPITHELIAL CELL UR AU 2 /HPF (0-6); UROBILINOGEN, URINE AUTO 0.2 mg/dL (0.0-2.0); WBC, URINE AUTO 2 /HPF (0-3)
[2022-01-21 10:09] LABS: HEMATOCRIT 39.7 % (36.0-47.0); HEMOGLOBIN 12.7 g/dl (12.0-15.5); MEAN CORPUSCULAR HEMOGLOBIN 30.2 pg (27.0-33.0); MEAN CORPUSCULAR VOLUME 94.5 fl (80.0-96.0); PLATELET COUNT, AUTOMATED 347 10^3/uL (150-450); WHITE BLOOD COUNT 6.6 10^3/uL (4.0-10.0)
[2022-01-21 10:36] LABS: ALBUMIN 3.9 GM/DL (3.2-5.2); BILIRUBIN,DIRECT 0.1 MG/DL (0.0-0.2); BILIRUBIN,TOTAL 0.5 MG/DL (0.2-1.0); CALCIUM LEVEL 10.1 MG/DL (8.5-10.1); CREATININE FOR GFR 1.76 MG/DL (0.55-1.30); GLOMERULAR FILTRATION RATE 31.8 (>51); MAGNESIUM LEVEL 2.4 MG/DL (1.8-2.4); PHOSPHORUS LEVEL 3.6 MG/DL (2.5-4.9); POTASSIUM SERUM 4.9 MEQ/L (3.5-5.1); TOTAL PROTEIN 7.9 GM/DL (6.4-8.2)
[2022-01-21 11:17] LABS: ANISOCYTOSIS 1+; ATYPICAL LYMPH 1 % (0-5); BASOPHILS 2 % (0-1); EOSINOPHILS 4 % (0-3); LYMPHOCYTES 25 % (16-44); MONOCYTES 6 % (0-5); NEUTROPHILS 62 % (28-66); PLATELET ESTIMATE NORMAL (NORMAL)
== END ==
LOC: M LAB 08:56
PROVIDERS: ATTEND Internal Medicine Nephrology
DX: Z94.0 Kidney transplant status (principal); D84.9 Immunodeficiency, unspecified; Z79.899 Other long term (current) drug therapy

== ENCOUNTER 2022-06-27 09:02 | Emergency (ER) | payer MEDICARE, SELFPAY ==
[~2022-06-27] VITALS: Ht 165.1 cm; Wt 72.6 kg
[~2022-06-27 09:02] MED LIST changes: +LEVO1TAB40 PO; -LEVO750T13 PO
[2022-06-27 11:45] VITALS: BP 131/78
== END 2022-06-27 12:41 | disposition home or self-care (01) ==
LOC: M ED 09:02
DX: S09.90XA Unspecified injury of head, initial encounter (principal); S80.11XA Contusion of right lower leg, initial encounter; S90.02XA Contusion of left ankle, initial encounter; S60.221A Contusion of right hand, initial encounter; W01.10XA Fall on same level from slipping, tripping and stumbling with subsequent striking against unspecified object, initial encounter; Y92.009 Unspecified place in unspecified non-institutional (private) residence as the place of occurrence of the external cause; M17.11 Unilateral primary osteoarthritis, right knee; M11.231 Other chondrocalcinosis, right wrist; Z88.6 Allergy status to analgesic agent; Z88.8 Allergy status to other drugs, medicaments and biological substances; Z79.899 Other long term (current) drug therapy; Z79.51 Long term (current) use of inhaled steroids

== ENCOUNTER → 2022-11-10 | Outpatient (REF) | payer MEDICARE ==
[~2022-11-10] MED LIST changes: -VALG1TAB PO; +VALG450T10 PO
== END ==
LOC: M LAB REF 16:13
PROVIDERS: ATTEND Physician Assistant
DX: R30.0 Dysuria (principal)

== ENCOUNTER → 2022-12-27 | Outpatient (CLI) | payer MEDICARE ==
[2022-12-27 11:04] LABS: APPEARANCE, URINE HAZY (CLEAR); BACTERIA, URINE AUTO NEGATIVE (NEGATIVE); BILIRUBIN, URINE AUTO NEGATIVE (NEGATIVE); BLOOD, URINE BLOOD NEGATIVE (NEGATIVE); COLOR, URINE YELLOW (YELLOW); GLUCOSE, URINE (UA) AUTO NEGATIVE (NEGATIVE); KETONE, URINE AUTO NEGATIVE (NEGATIVE); LEUKOCYTE ESTERASE, URINE AUTO TRACE (NEGATIVE); MUCUS, URINE SMALL (NEGATIVE); NITRITE, URINE AUTO NEGATIVE (NEGATIVE); PROTEIN, URINE AUTO NEGATIVE (NEGATIVE); RBC, URINE AUTO 1 /HPF (0-3); SPECIFIC GRAVITY URINE AUTO 1.024 (1.002-1.035); SQUAMOUS EPITHELIAL CELL UR AU 4 /HPF (0-6); UROBILINOGEN, URINE AUTO 0.2 mg/dL (0.0-2.0); WBC, URINE AUTO 6 /HPF (0-3)
[2022-12-27 11:06] LABS: BASO # 0.1 10^3/uL (0.0-0.2); EOS # 0.7 10^3/uL (0.0-0.5); EOS % 10.6 % (0.0-3.0); HEMATOCRIT 36.5 % (36.0-47.0); HEMOGLOBIN 11.5 g/dl (12.0-15.5); LYMPH # 1.7 10^3/uL (1.5-5.0); LYMPH % 24.5 % (24.0-44.0); MEAN CORPUSCULAR HEMOGLOBIN 30.7 pg (27.0-33.0); MEAN CORPUSCULAR HGB CONC 31.5 g/dl (32.0-36.5); MEAN CORPUSCULAR VOLUME 97.3 fl (80.0-96.0); MONO # 0.7 10^3/uL (0.0-0.8); MONO % 10.1 % (2.0-8.0); NEUTROPHILS # 3.7 10^3/uL (1.5-8.5); NEUTROPHILS % 53.5 % (36.0-66.0); PLATELET COUNT, AUTOMATED 179 10^3/uL (150-450); RED BLOOD COUNT 3.75 10^6/uL (4.00-5.40); WHITE BLOOD COUNT 6.9 10^3/uL (4.0-10.0)
[2022-12-27 11:19] LABS: TOTAL PROTEIN,RANDOM URINE 32.4 MG/DL (0.0-14.0)
[2022-12-27 11:24] LABS: CREATININE,RANDOM URINE 135.7 MG/DL
[2022-12-27 11:32] LABS: ALBUMIN 3.5 G/DL (3.2-5.2); ALKALINE PHOSPHATASE 136 U/L (46-116); ALT/SGPT 29 U/L (7.0-40); AST/SGOT 33 U/L (<34); BILIRUBIN,DIRECT < 0.1 MG/DL (<0.4); BILIRUBIN,TOTAL 0.2 MG/DL (0.3-1.2); BLOOD UREA NITROGEN 32 MG/DL (9-23); CALCIUM LEVEL 9.5 MG/DL (8.5-10.1); CARBON DIOXIDE LEVEL 22 MMOL/L (20-31); CHLORIDE LEVEL 110 MMOL/L (98-107); CREATININE FOR GFR 1.45 MG/DL (0.55-1.30); GLOMERULAR FILTRATION RATE 39.6 (>51); GLUCOSE, FASTING 155 MG/DL (60-100); MAGNESIUM LEVEL 1.7 MG/DL (1.8-2.4); PHOSPHORUS LEVEL 3.4 MG/DL (2.5-4.9); POTASSIUM SERUM 5.4 MMOL/L (3.5-5.1); PTH INTACT 402.9 PG/ML (18.5-88.0); SODIUM LEVEL 139 MMOL/L (136-145); TOTAL PROTEIN 6.3 G/DL (5.7-8.2)
[2022-12-27 11:34] LABS: TOTAL 25(OH) VITAMIN D 34.8 NG/ML (20.0-100.0)
== END ==
LOC: M LAB 09:35
PROVIDERS: ATTEND Internal Medicine Nephrology
DX: Z94.0 Kidney transplant status (principal); N18.5 Chronic kidney disease, stage 5; D84.9 Immunodeficiency, unspecified; Z79.899 Other long term (current) drug therapy

== ENCOUNTER 2023-02-12 01:07 | Emergency (ER) | payer MEDICARE ==
[2023-02-12 01:08] VITALS: BP 137/63
== END 2023-02-12 04:11 | disposition left against medical advice (07) ==
LOC: M ED 01:07
DX: M54.50 Low back pain, unspecified (principal); Z53.21 Procedure and treatment not carried out due to patient leaving prior to being seen by health care provider

== ENCOUNTER → 2023-03-22 | Outpatient (CLI) | payer MEDICARE ==
[2023-03-22 11:10] LABS: APPEARANCE, URINE HAZY (CLEAR); BACTERIA, URINE AUTO NEGATIVE (NEGATIVE); BILIRUBIN, URINE AUTO NEGATIVE (NEGATIVE); BLOOD, URINE BLOOD NEGATIVE (NEGATIVE); COLOR, URINE YELLOW (YELLOW); GLUCOSE, URINE (UA) AUTO NEGATIVE (NEGATIVE); KETONE, URINE AUTO NEGATIVE (NEGATIVE); LEUKOCYTE ESTERASE, URINE AUTO NEGATIVE (NEGATIVE); NITRITE, URINE AUTO NEGATIVE (NEGATIVE); PROTEIN, URINE AUTO NEGATIVE (NEGATIVE); RBC, URINE AUTO 1 /HPF (0-3); SPECIFIC GRAVITY URINE AUTO 1.016 (1.002-1.035); SQUAMOUS EPITHELIAL CELL UR AU 0 /HPF (0-6); UROBILINOGEN, URINE AUTO 0.2 mg/dL (0.0-2.0); WBC, URINE AUTO 1 /HPF (0-3)
[2023-03-22 11:23] LABS: BASO # 0.1 10^3/uL (0.0-0.2); BASO % 1.1 % (0.0-1.0); EOS # 0.4 10^3/uL (0.0-0.5); EOS % 7.8 % (0.0-3.0); HEMATOCRIT 33.9 % (36.0-47.0); HEMOGLOBIN 10.4 g/dl (12.0-15.5); LYMPH # 1.2 10^3/uL (1.5-5.0); LYMPH % 22.3 % (24.0-44.0); MEAN CORPUSCULAR HGB CONC 30.7 g/dl (32.0-36.5); MEAN CORPUSCULAR VOLUME 100.9 fl (80.0-96.0); MONO # 0.6 10^3/uL (0.0-0.8); MONO % 10.9 % (2.0-8.0); NEUTROPHILS % 57.5 % (36.0-66.0); PLATELET COUNT, AUTOMATED 232 10^3/uL (150-450); RED BLOOD COUNT 3.36 10^6/uL (4.00-5.40); WHITE BLOOD COUNT 5.2 10^3/uL (4.0-10.0)
[2023-03-22 11:44] LABS: TOTAL PROTEIN,RANDOM URINE 22.7 MG/DL (0.0-14.0)
[2023-03-22 11:49] LABS: CREATININE,RANDOM URINE 50.3 MG/DL
[2023-03-22 11:50] LABS: ALBUMIN 3.5 G/DL (3.2-5.2); ALKALINE PHOSPHATASE 224 U/L (46-116); ALT/SGPT 53 U/L (7.0-40); AST/SGOT 36 U/L (<34); BILIRUBIN,DIRECT 0.1 MG/DL (<0.4); BILIRUBIN,TOTAL 0.4 MG/DL (0.3-1.2); BLOOD UREA NITROGEN 33 MG/DL (9-23); CALCIUM LEVEL 11.1 MG/DL (8.5-10.1); CARBON DIOXIDE LEVEL 24 MMOL/L (20-31); CHLORIDE LEVEL 107 MMOL/L (98-107); CREATININE FOR GFR 0.98 MG/DL (0.55-1.30); GLOMERULAR FILTRATION RATE > 60.0 (>51); GLUCOSE, FASTING 154 MG/DL (60-100); MAGNESIUM LEVEL 1.8 MG/DL (1.8-2.4); PHOSPHORUS LEVEL 3.7 MG/DL (2.5-4.9); POTASSIUM SERUM 5.8 MMOL/L (3.5-5.1); PTH INTACT 287.2 PG/ML (18.5-88.0); SODIUM LEVEL 138 MMOL/L (136-145); TOTAL PROTEIN 6.6 G/DL (5.7-8.2)
[2023-03-22 11:52] LABS: TOTAL 25(OH) VITAMIN D 24.3 NG/ML (20.0-100.0)
== END ==
LOC: M LAB 09:54
PROVIDERS: ATTEND Internal Medicine Nephrology
DX: Z94.0 Kidney transplant status (principal)

== ENCOUNTER → 2023-07-07 | Outpatient (CLI) | payer MEDICARE ==
[~2023-07-07] MED LIST changes: -PREG150C PO; +PREG150C2 PO
[2023-07-07 11:06] LABS: APPEARANCE, URINE CLOUDY (CLEAR); BACTERIA, URINE AUTO NEGATIVE (NEGATIVE); BILIRUBIN, URINE AUTO NEGATIVE (NEGATIVE); BLOOD, URINE BLOOD 1+ (NEGATIVE); COLOR, URINE YELLOW (YELLOW); GLUCOSE, URINE (UA) AUTO NEGATIVE (NEGATIVE); KETONE, URINE AUTO NEGATIVE (NEGATIVE); LEUKOCYTE ESTERASE, URINE AUTO 3+ (NEGATIVE); NITRITE, URINE AUTO POSITIVE (NEGATIVE); PROTEIN, URINE AUTO 1+ mg/dL (NEGATIVE); RBC, URINE AUTO 7 /HPF (0-3); SPECIFIC GRAVITY URINE AUTO 1.013 (1.002-1.035); SQUAMOUS EPITHELIAL CELL UR AU 8 /HPF (0-6); UROBILINOGEN, URINE AUTO 0.2 mg/dL (0.0-2.0); WBC, URINE AUTO TNTC /HPF (0-3)
[2023-07-07 11:08] LABS: BASO # 0.1 10^3/uL (0.0-0.2); BASO % 0.7 % (0.0-1.0); EOS # 0.4 10^3/uL (0.0-0.5); EOS % 5.1 % (0.0-3.0); HEMATOCRIT 38.4 % (36.0-47.0); HEMOGLOBIN 12.3 g/dl (12.0-15.5); LYMPH # 1.3 10^3/uL (1.5-5.0); LYMPH % 15.6 % (24.0-44.0); MEAN CORPUSCULAR HEMOGLOBIN 30.8 pg (27.0-33.0); MONO # 0.7 10^3/uL (0.0-0.8); MONO % 8.3 % (2.0-8.0); NEUTROPHILS # 5.9 10^3/uL (1.5-8.5); NEUTROPHILS % 69.9 % (36.0-66.0); PLATELET COUNT, AUTOMATED 227 10^3/uL (150-450); WHITE BLOOD COUNT 8.4 10^3/uL (4.0-10.0)
[2023-07-07 11:23] LABS: TOTAL PROTEIN,RANDOM URINE 38.2 MG/DL (0.0-14.0)
[2023-07-07 11:28] LABS: ALBUMIN 3.6 G/DL (3.2-5.2); BILIRUBIN,TOTAL 0.4 MG/DL (0.3-1.2); CALCIUM LEVEL 11.1 MG/DL (8.5-10.1); CREATININE FOR GFR 1.24 MG/DL (0.55-1.30); CREATININE,RANDOM URINE 122.2 MG/DL; GLOMERULAR FILTRATION RATE 47.5 (>51); MAGNESIUM LEVEL 2.2 MG/DL (1.8-2.4); PHOSPHORUS LEVEL 3.5 MG/DL (2.5-4.9); POTASSIUM SERUM 5.1 MMOL/L (3.5-5.1); TOTAL PROTEIN 6.9 G/DL (5.7-8.2)
== END ==
LOC: M LAB 10:21
DX: N18.5 Chronic kidney disease, stage 5 (principal); D84.9 Immunodeficiency, unspecified; Z94.0 Kidney transplant status; Z79.899 Other long term (current) drug therapy

== ENCOUNTER 2023-07-24 19:18 | Emergency (ER) | payer MEDICARE ==
[~2023-07-24] VITALS: Ht 165.1 cm; Wt 87.9 kg
[2023-07-24 19:19] VITALS: TEMP 97.6
[2023-07-24 20:59] LABS: BASO # 0.1 10^3/uL (0.0-0.2); BASO % 0.6 % (0.0-1.0); EOS # 0.4 10^3/uL (0.0-0.5); HEMATOCRIT 30.2 % (36.0-47.0); HEMOGLOBIN 9.6 g/dl (12.0-15.5); LYMPH # 0.7 10^3/uL (1.5-5.0); LYMPH % 8.5 % (24.0-44.0); MEAN CORPUSCULAR HGB CONC 31.8 g/dl (32.0-36.5); MEAN CORPUSCULAR VOLUME 97.4 fl (80.0-96.0); MONO # 0.4 10^3/uL (0.0-0.8); MONO % 5.5 % (2.0-8.0); NEUTROPHILS # 6.3 10^3/uL (1.5-8.5); NEUTROPHILS % 80.1 % (36.0-66.0); PLATELET COUNT, AUTOMATED 187 10^3/uL (150-450); WHITE BLOOD COUNT 7.8 10^3/uL (4.0-10.0)
[2023-07-24 21:08] LABS: LIPASE 20 U/L (12-53)
[2023-07-24 21:11] LABS: ALBUMIN 3.1 G/DL (3.2-5.2); ALKALINE PHOSPHATASE 202 U/L (46-116); ALT/SGPT 38 U/L (7.0-40); AST/SGOT 26 U/L (<34); BILIRUBIN,DIRECT < 0.1 MG/DL (<0.4); BILIRUBIN,TOTAL 0.2 MG/DL (0.3-1.2); BLOOD UREA NITROGEN 46 MG/DL (9-23); CALCIUM LEVEL 9.8 MG/DL (8.5-10.1); CARBON DIOXIDE LEVEL 20 MMOL/L (20-31); CHLORIDE LEVEL 106 MMOL/L (98-107); CREATININE FOR GFR 1.57 MG/DL (0.55-1.30); GLOMERULAR FILTRATION RATE 36.2 (>51); GLUCOSE, FASTING 170 MG/DL (60-100); SODIUM LEVEL 136 MMOL/L (136-145); TOTAL PROTEIN 6.2 G/DL (5.7-8.2)
[2023-07-24 22:00] VITALS: BP 123/62; O2SAT 97
[2023-07-24] MEDS ORDERED: CEFD300C42 PO (22:08)
[2023-07-24] MEDS ORDERED: CIPR-249 PO (22:12)
[2023-07-24] MEDS ORDERED: CIPROFLOXACIN 500MG TABLET PO ONE (22:15)
== END 2023-07-24 23:00 | disposition home or self-care (01) ==
LOC: M ED 19:18
DX: N10 Acute pyelonephritis (principal); M79.2 Neuralgia and neuritis, unspecified; Z88.6 Allergy status to analgesic agent; Z88.8 Allergy status to other drugs, medicaments and biological substances; Z79.899 Other long term (current) drug therapy; Z79.51 Long term (current) use of inhaled steroids

== ENCOUNTER → 2024-01-04 | Outpatient (CLI) | payer MEDICARE ==
[~2024-01-04] MED LIST changes: +CEFD1CAP9 PO; +CIPR-249 PO
[2024-01-04 12:50] LABS: BASO # 0.1 10^3/uL (0.0-0.2); EOS # 0.5 10^3/uL (0.0-0.5); HEMATOCRIT 37.5 % (36.0-47.0); HEMOGLOBIN 12.3 g/dl (12.0-15.5); LYMPH # 1.8 10^3/uL (1.5-5.0); LYMPH % 29.8 % (24.0-44.0); MEAN CORPUSCULAR HEMOGLOBIN 30.4 pg (27.0-33.0); MEAN CORPUSCULAR HGB CONC 32.8 g/dl (32.0-36.5); MEAN CORPUSCULAR VOLUME 92.8 fl (80.0-96.0); MONO # 0.4 10^3/uL (0.0-0.8); MONO % 6.5 % (2.0-8.0); NEUTROPHILS # 3.2 10^3/uL (1.5-8.5); NEUTROPHILS % 54.4 % (36.0-66.0); PLATELET COUNT, AUTOMATED 216 10^3/uL (150-450); RED BLOOD COUNT 4.04 10^6/uL (4.00-5.40); WHITE BLOOD COUNT 5.9 10^3/uL (4.0-10.0)
[2024-01-04 13:23] LABS: ALBUMIN 3.8 G/DL (3.2-5.2); APPEARANCE, URINE HAZY (CLEAR); BACTERIA, URINE AUTO NEGATIVE (NEGATIVE); BILIRUBIN, URINE AUTO NEGATIVE (NEGATIVE); BILIRUBIN,TOTAL 0.4 MG/DL (0.3-1.2); BLOOD, URINE BLOOD NEGATIVE (NEGATIVE); CALCIUM LEVEL 10.7 MG/DL (8.5-10.1); COLOR, URINE YELLOW (YELLOW); CREATININE FOR GFR 1.34 MG/DL (0.55-1.30); GLOMERULAR FILTRATION RATE 43.2 (>51); GLUCOSE, URINE (UA) AUTO NEGATIVE (NEGATIVE); KETONE, URINE AUTO NEGATIVE (NEGATIVE); LEUKOCYTE ESTERASE, URINE AUTO 1+ (NEGATIVE); MAGNESIUM LEVEL 1.6 MG/DL (1.8-2.4); MUCUS, URINE SMALL (NEGATIVE); NITRITE, URINE AUTO NEGATIVE (NEGATIVE); PHOSPHORUS LEVEL 3.3 MG/DL (2.5-4.9); PROTEIN, URINE AUTO NEGATIVE (NEGATIVE); RBC, URINE AUTO 2 /HPF (0-3); SPECIFIC GRAVITY URINE AUTO 1.012 (1.002-1.035); SQUAMOUS EPITHELIAL CELL UR AU 14 /HPF (0-6); TOTAL PROTEIN 6.8 G/DL (5.7-8.2); UROBILINOGEN, URINE AUTO 0.2 mg/dL (0.0-2.0); WBC, URINE AUTO 7 /HPF (0-3)
[2024-01-04 13:24] LABS: TOTAL PROTEIN,RANDOM URINE 15.3 MG/DL (0.0-14.0)
[2024-01-04 13:29] LABS: CREATININE,RANDOM URINE 89.8 MG/DL
== END ==
LOC: M LAB 10:35
PROVIDERS: ATTEND Internal Medicine
DX: Z94.0 Kidney transplant status (principal); N18.5 Chronic kidney disease, stage 5; D84.9 Immunodeficiency, unspecified; Z79.899 Other long term (current) drug therapy

== ENCOUNTER → 2024-06-13 | Outpatient (CLI) | payer MEDICARE ==
[~2024-06-13] MED LIST changes: +BUPR-597 PO; -BUPR300T92 PO; +FLUO-365 PO; -FLUO20CA22 PO
[2024-06-13 10:37] LABS: BASO % 0.6 % (0.0-1.0); EOS # 0.4 10^3/uL (0.0-0.5); EOS % 8.8 % (0.0-3.0); HEMOGLOBIN 9.9 g/dl (12.0-15.5); LYMPH # 1.1 10^3/uL (1.5-5.0); LYMPH % 22.3 % (24.0-44.0); MEAN CORPUSCULAR HEMOGLOBIN 31.3 pg (27.0-33.0); MEAN CORPUSCULAR HGB CONC 30.9 g/dl (32.0-36.5); MEAN CORPUSCULAR VOLUME 101.3 fl (80.0-96.0); MONO # 0.6 10^3/uL (0.0-0.8); NEUTROPHILS # 2.7 10^3/uL (1.5-8.5); NEUTROPHILS % 56.1 % (36.0-66.0); PLATELET COUNT, AUTOMATED 234 10^3/uL (150-450); RED BLOOD COUNT 3.16 10^6/uL (4.00-5.40); WHITE BLOOD COUNT 4.8 10^3/uL (4.0-10.0)
[2024-06-13 11:08] LABS: ALBUMIN 3.1 G/DL (3.2-5.2); BILIRUBIN,TOTAL 0.2 MG/DL (0.3-1.2); CALCIUM LEVEL 9.6 MG/DL (8.5-10.1); CREATININE FOR GFR 1.11 MG/DL (0.55-1.30); GLOMERULAR FILTRATION RATE 53.7 (>51); TOTAL PROTEIN 6.5 G/DL (5.7-8.2)
[2024-06-13 11:15] LABS: THYROID STIMULATING HORMONE 1.681 uIU/ML (0.55-4.78)
== END ==
LOC: M LAB 09:55
PROVIDERS: ATTEND Family Medicine
DX: Z79.899 Other long term (current) drug therapy (principal)

== ENCOUNTER 2024-10-06 14:22 | Inpatient (IN) | payer MEDICARE ==
[~2024-10-06] VITALS: Ht 165.1 cm; Wt 81.1 kg
[2024-10-06 15:25] LABS: KETONE, URINE MANUAL REFLEX NEGATIVE (NEGATIVE); NITRITE, URINE MANUAL RFX NEGATIVE (NEGATIVE); PROTEIN, URINE MANUAL REFLEX 3+ mg/dL (NEGATIVE); SP GRAVITY,URINE MANUAL REFLEX 1.015 (1.002-1.035); UROBILINOGEN, UA MANUAL REFLEX NORMAL (NORMAL)
[2024-10-06] MEDS: NS 0.9% IV ONE (15:25)
[2024-10-06] MEDS: [UNRECOGNIZED DRUG - OTHER] IV ONE (15:25)
[2024-10-06 15:31] LABS: WBC, URINE MAN RFX TNTC /hpf (0-3)
[2024-10-06 15:33] LABS: HYALINE CAST, URINE RFX NONE SEEN /lpf (0-1); MICROSCOPIC EXAM RFX PERFORMED; SQUAMOUS EPITHELIAL URINE RFX SMALL AMOUNT /hpf (SMALL AMT); TRANSITIONAL EPI, URINE RFX SMALL AMOUNT /hpf
[2024-10-06 15:34] LABS: CK-MB VALUE MASS 1.4 NG/ML (<3.6)
[2024-10-06 15:35] LABS: ALBUMIN 2.4 G/DL (3.2-5.2); BILIRUBIN,DIRECT 0.5 MG/DL (<0.4); BILIRUBIN,TOTAL 0.9 MG/DL (0.3-1.2); C REACTIVE PROTEIN QUANTITATIV 24.64 MG/DL (<1.0); CALCIUM LEVEL 9.7 MG/DL (8.5-10.1); CREATININE FOR GFR 2.76 MG/DL (0.55-1.30); GLOMERULAR FILTRATION RATE 18.8 (>51); POTASSIUM SERUM 4.9 MMOL/L (3.5-5.1); TOTAL PROTEIN 5.4 G/DL (5.7-8.2)
[2024-10-06 15:36] LABS: MB/CK RELATIVE INDEX 0.14 (< OR =4)
[2024-10-06 15:42] LABS: BASO % 0.3 % (0.0-1.0); HEMATOCRIT 28.9 % (36.0-47.0); HEMOGLOBIN 9.3 g/dl (12.0-15.5); LYMPH # 0.5 10^3/uL (1.5-5.0); LYMPH % 3.3 % (24.0-44.0); MEAN CORPUSCULAR HEMOGLOBIN 30.3 pg (27.0-33.0); MEAN CORPUSCULAR HGB CONC 32.2 g/dl (32.0-36.5); MEAN CORPUSCULAR VOLUME 94.1 fl (80.0-96.0); MONO # 1.6 10^3/uL (0.0-0.8); MONO % 10.8 % (2.0-8.0); NEUTROPHILS # 12.6 10^3/uL (1.5-8.5); NEUTROPHILS % 84.6 % (36.0-66.0); PLATELET COUNT, AUTOMATED 120 10^3/uL (150-450); RED BLOOD COUNT 3.07 10^6/uL (4.00-5.40); WHITE BLOOD COUNT 14.9 10^3/uL (4.0-10.0)
[2024-10-06 15:42] LABS: PROCALCITONIN 12.83 ng/ml
[2024-10-06 15:50] LABS: INR 1.28; PARTIAL THROMBOPLASTIN TIME 33.5 SECONDS (24.8-34.2); PROTHROMBIN TIME 16.3 SECONDS (12.5-14.5)
[2024-10-06] MEDS: LevoFLOXacin IV 750 MG in IV 1 EA IV ONE (16:15)
[2024-10-06] MEDS: SYMBICORT 160/4.5MCG INHALER 6GM INH SCH (20:00)
[2024-10-06] MEDS ORDERED: MULTTAB61 PO (22:08)
[2024-10-06] MEDS ORDERED: ARIP10TA63 PO (22:18)
[2024-10-06] MEDS ORDERED: GABA-1172 PO (22:27)
[2024-10-06] MEDS ORDERED: TIZA10TA PO (22:27)
[2024-10-06] MEDS ORDERED: MODA100T13 PO (22:27)
[2024-10-06] MEDS ORDERED: ALBU2.5V10 PO (22:35)
[2024-10-06] MEDS ORDERED: DULO1CAP6 PO (22:35)
[2024-10-06] MEDS ORDERED: SYMB16INH INH (22:35)
[2024-10-06] MEDS ORDERED: HOME MED LIST COMPLETE! XX SCH (22:40)
[2024-10-06] MEDS ORDERED: SODIUM CHLORIDE 0.9% 1000 ML IV SCH (23:20)
[2024-10-06] MEDS ORDERED: ALBUTEROL SULFATE 2.5MG/0.5ML INH NEB SOLN INH PRN (23:20)
[2024-10-06] MEDS ORDERED: ALBUTEROL 90 MCG/ACT 8GM HFA INHALER INH PRN (23:20)
[2024-10-06] MEDS: SODIUM CHLORIDE 0.9% 500 ML IV SCH (23:45)
[2024-10-07] MEDS: tiZANidine 4 MG TAB PO SCH (01:18)
[2024-10-07] MEDS: SODIUM BICARBONATE 325 MG TAB PO SCH (01:18)
[2024-10-07] MEDS: TACROLIMUS 1MG CAP PO SCH (01:18)
[2024-10-07] MEDS: NS (Normal Saline) 0.9% 1,000 ML IV SCH ×2 (01:20→05:15)
[2024-10-07 07:35] LABS: ALBUMIN 2.2 G/DL (3.2-5.2); BILIRUBIN,TOTAL 0.7 MG/DL (0.3-1.2); CALCIUM LEVEL 9.7 MG/DL (8.5-10.1); CREATININE FOR GFR 2.74 MG/DL (0.55-1.30); GLOMERULAR FILTRATION RATE 18.9 (>51); POTASSIUM SERUM 5.6 MMOL/L (3.5-5.1); TOTAL PROTEIN 5.4 G/DL (5.7-8.2)
[2024-10-07 08:00] VITALS: BP 116/65; TEMP 99.9; O2SAT 98
[2024-10-07] MEDS: ATORVASTATIN 20 MG TAB PO SCH (08:50)
[2024-10-07] MEDS: FERROUS SULFATE 325MG TAB PO SCH (08:50)
[2024-10-07] MEDS: ARIPiprazole 10 MG TAB PO SCH (08:50)
[2024-10-07] MEDS: ASPIRIN 81MG ENTERIC TABLET PO SCH (08:50)
[2024-10-07] MEDS: DULoxetine 30MG CAPSULE (CYMBALTA) PO SCH (08:50)
[2024-10-07] MEDS: GABAPENTIN 100 MG CAP PO SCH (08:50)
[2024-10-07] MEDS: ACETAMINOPHEN 325 MG TAB PO PRN (08:51)
[2024-10-07] MEDS: HEPARIN SOD (PORCINE) 5000UNITS/ML 1ML VIAL/SYRINGE SC SCH (08:51)
[2024-10-07] MEDS ORDERED: GABAPENTIN 300 MG CAP PO SCH (09:00)
[2024-10-07] MEDS: SOD POLYSTYRENE SULFONATE SUSP 15GM 60ML UD PO ONE (09:00)
[2024-10-07] MEDS ORDERED: azaTHIOprine 10MG/ML SUSP *COMPOUNDED* 40ML BOTTLE PO SCH (09:00)
[2024-10-07] MEDS: SODIUM BICARBONATE 75 MEQ in NS 0.45% 1,000 ML IV SCH (10:07)
[2024-10-07] MEDS: MODAFINIL 100 MG TABLET PO SCH (10:08)
[2024-10-07 10:14] LABS: BASO % 0.2 % (0.0-1.0); EOS % 0.2 % (0.0-3.0); HEMATOCRIT 29.8 % (36.0-47.0); HEMOGLOBIN 9.7 g/dl (12.0-15.5); LYMPH # 0.4 10^3/uL (1.5-5.0); LYMPH % 3.3 % (24.0-44.0); MEAN CORPUSCULAR HEMOGLOBIN 30.8 pg (27.0-33.0); MEAN CORPUSCULAR HGB CONC 32.6 g/dl (32.0-36.5); MEAN CORPUSCULAR VOLUME 94.6 fl (80.0-96.0); MONO # 1.3 10^3/uL (0.0-0.8); MONO % 9.6 % (2.0-8.0); NEUTROPHILS # 11.6 10^3/uL (1.5-8.5); NEUTROPHILS % 85.7 % (36.0-66.0); PLATELET COUNT, AUTOMATED 134 10^3/uL (150-450); RED BLOOD COUNT 3.15 10^6/uL (4.00-5.40); WHITE BLOOD COUNT 13.5 10^3/uL (4.0-10.0)
[2024-10-07 12:00] VITALS: BP 124/62; TEMP 97.7; O2SAT 96
[2024-10-07 12:55] LABS: CALCIUM LEVEL 10.1 MG/DL (8.5-10.1); CREATININE FOR GFR 3.08 MG/DL (0.55-1.30); GLOMERULAR FILTRATION RATE 16.6 (>51); POTASSIUM SERUM 4.6 MMOL/L (3.5-5.1)
[2024-10-07 14:56] VITALS: BP_SYST 117; BP_SYST 136; BP_SYST 140; BP_DIAS 56; BP_DIAS 66
[2024-10-07 15:03] VITALS: BP 117/56; TEMP 97.6
[2024-10-07 16:12] VITALS: BP 130/63; TEMP 98; O2SAT 98
[2024-10-07 18:18] LABS: CALCIUM LEVEL 9.4 MG/DL (8.5-10.1); CREATININE FOR GFR 2.92 MG/DL (0.55-1.30); GLOMERULAR FILTRATION RATE 17.6 (>51); POTASSIUM SERUM 4.1 MMOL/L (3.5-5.1)
[2024-10-07 20:51] VITALS: BP 139/67; TEMP 97.8; O2SAT 98
[2024-10-08] VITALS (8 sets, daily range): BP systolic 134–167; BP diastolic 65–80; TEMP 96.9–98.7; O2SAT 96–99
[2024-10-08 08:55] LABS: BASO % 0.2 % (0.0-1.0); EOS # 0.1 10^3/uL (0.0-0.5); EOS % 0.9 % (0.0-3.0); HEMATOCRIT 27.5 % (36.0-47.0); LYMPH # 0.7 10^3/uL (1.5-5.0); LYMPH % 6.8 % (24.0-44.0); MEAN CORPUSCULAR HEMOGLOBIN 30.1 pg (27.0-33.0); MEAN CORPUSCULAR HGB CONC 32.7 g/dl (32.0-36.5); MONO % 10.3 % (2.0-8.0); PLATELET COUNT, AUTOMATED 163 10^3/uL (150-450); RED BLOOD COUNT 2.99 10^6/uL (4.00-5.40); WHITE BLOOD COUNT 9.9 10^3/uL (4.0-10.0)
[2024-10-08 09:45] LABS: C REACTIVE PROTEIN QUANTITATIV 15.53 MG/DL (<1.0)
[2024-10-08 09:56] LABS: ALBUMIN 2.2 G/DL (3.2-5.2); BILIRUBIN,DIRECT 0.2 MG/DL (<0.4); BILIRUBIN,TOTAL 0.3 MG/DL (0.3-1.2); CALCIUM LEVEL 9.3 MG/DL (8.5-10.1); CREATININE FOR GFR 2.43 MG/DL (0.55-1.30); GLOMERULAR FILTRATION RATE 21.8 (>51); MAGNESIUM LEVEL 1.6 MG/DL (1.8-2.4); POTASSIUM SERUM 4.3 MMOL/L (3.5-5.1); TOTAL PROTEIN 5.3 G/DL (5.7-8.2)
[2024-10-08 11:10] LABS: PERCENT SATURATION 10.6 % (13.2-45.0); PHOSPHORUS LEVEL 3.6 MG/DL (2.5-4.9)
[2024-10-08] MEDS: MAG SULF 1GM/100ML (MAG RUN) 1 GM in IV 1 EA IV SCH (11:56)
[2024-10-08] MEDS: FERRIC CARBOXYMALTOSE INJ 750 MG, VIAL MATE ADAPTER 1 EACH in NS 100 ML IV ONE (16:11)
[2024-10-08] MEDS: LevoFLOXacin IV 750 MG in IV 1 EA IV SCH (16:38)
[2024-10-09 03:58] VITALS: BP 155/72; TEMP 97.6; O2SAT 96
[2024-10-09 07:08] LABS: BASO % 0.4 % (0.0-1.0); EOS # 0.2 10^3/uL (0.0-0.5); EOS % 2.3 % (0.0-3.0); HEMATOCRIT 27.8 % (36.0-47.0); HEMOGLOBIN 9.2 g/dl (12.0-15.5); LYMPH # 0.8 10^3/uL (1.5-5.0); LYMPH % 10.9 % (24.0-44.0); MEAN CORPUSCULAR HEMOGLOBIN 30.1 pg (27.0-33.0); MEAN CORPUSCULAR HGB CONC 33.1 g/dl (32.0-36.5); MEAN CORPUSCULAR VOLUME 90.8 fl (80.0-96.0); MONO # 0.7 10^3/uL (0.0-0.8); MONO % 10.2 % (2.0-8.0); NEUTROPHILS # 5.2 10^3/uL (1.5-8.5); NEUTROPHILS % 75.1 % (36.0-66.0); PLATELET COUNT, AUTOMATED 174 10^3/uL (150-450); RED BLOOD COUNT 3.06 10^6/uL (4.00-5.40)
[2024-10-09 07:32] LABS: C REACTIVE PROTEIN QUANTITATIV 10.3 MG/DL (<1.0)
[2024-10-09 07:34] LABS: CALCIUM LEVEL 9.6 MG/DL (8.5-10.1); CREATININE FOR GFR 1.7 MG/DL (0.55-1.30); GLOMERULAR FILTRATION RATE 32.9 (>51); MAGNESIUM LEVEL 1.9 MG/DL (1.8-2.4); POTASSIUM SERUM 3.9 MMOL/L (3.5-5.1)
[2024-10-09 08:19] VITALS: BP 154/72; TEMP 97.5; O2SAT 97
[2024-10-09 15:22] VITALS: BP 128/67; TEMP 98.7; O2SAT 95
[2024-10-09 20:00] VITALS: BP 131/69; TEMP 98.2; O2SAT 96
[2024-10-09 23:41] VITALS: BP 133/86; TEMP 97.8; O2SAT 95
[2024-10-10 04:26] VITALS: BP 154/72; TEMP 97.7; O2SAT 97
[2024-10-10] MEDS: LevoFLOXacin 750 MG TABLET PO SCH (06:05)
[2024-10-10 06:22] LABS: HEMATOCRIT 28.1 % (36.0-47.0); HEMOGLOBIN 9.3 g/dl (12.0-15.5); MEAN CORPUSCULAR HEMOGLOBIN 29.9 pg (27.0-33.0); MEAN CORPUSCULAR HGB CONC 33.1 g/dl (32.0-36.5); MEAN CORPUSCULAR VOLUME 90.4 fl (80.0-96.0); PLATELET COUNT, AUTOMATED 207 10^3/uL (150-450); RED BLOOD COUNT 3.11 10^6/uL (4.00-5.40); WHITE BLOOD COUNT 8.7 10^3/uL (4.0-10.0)
[2024-10-10 06:28] LABS: C REACTIVE PROTEIN QUANTITATIV 7.14 MG/DL (<1.0)
[2024-10-10 06:29] LABS: CALCIUM LEVEL 9.5 MG/DL (8.5-10.1); CREATININE FOR GFR 1.36 MG/DL (0.55-1.30); GLOMERULAR FILTRATION RATE 42.5 (>51); MAGNESIUM LEVEL 1.7 MG/DL (1.8-2.4); POTASSIUM SERUM 4.1 MMOL/L (3.5-5.1)
[2024-10-10 06:58] LABS: EOSINOPHILS 4 % (0-3); LYMPHOCYTES 14 % (16-44); MONOCYTES 8 % (0-5); NEUTROPHILS 73 % (28-66); PLATELET ESTIMATE NORMAL (NORMAL)
[2024-10-10 07:24] VITALS: BP 141/70; TEMP 97.5; O2SAT 97
[2024-10-10] MEDS: MAG SULF 1GM/100ML (MAG RUN) 1 GM in IV 1 EA IV SCH (08:42)
[2024-10-10] MEDS: MOM 30ML SUSPENSION UDC PO PRN (09:43)
[2024-10-10] MEDS ORDERED: LEVO75TAB PO (09:53)
== END 2024-10-10 12:27 | disposition home or self-care (01) | DRG 871 ==
LOC: EDBD 14:22 → M ED 14:22 → M ED INP 23:16 → M PCU 10-07 14:51
PROVIDERS: ADMIT Student in an Organized Health Care Education/Training Program; ATTEND Internal Medicine
DX: A41.9 Sepsis, unspecified organism (principal); G93.41 Metabolic encephalopathy; N39.0 Urinary tract infection, site not specified; Q60.0 Renal agenesis, unilateral; Z94.0 Kidney transplant status; N17.9 Acute kidney failure, unspecified; E87.20 Acidosis, unspecified; M48.56XA Collapsed vertebra, not elsewhere classified, lumbar region, initial encounter for fracture; N10 Acute pyelonephritis; N18.9 Chronic kidney disease, unspecified; J45.909 Unspecified asthma, uncomplicated; D64.9 Anemia, unspecified; G89.29 Other chronic pain; B96.20 Unspecified Escherichia coli [E. coli] as the cause of diseases classified elsewhere; M54.9 Dorsalgia, unspecified; R53.1 Weakness; F32.A Depression, unspecified; Z66 Do not resuscitate; Z79.899 Other long term (current) drug therapy; Z88.6 Allergy status to analgesic agent

== ENCOUNTER 2025-04-16 18:54 | Inpatient (IN) | payer MEDICARE, MEDICAID ==
[~2025-04-16] VITALS: Ht 165.1 cm; Wt 72.7 kg
[~2025-04-16 18:54] MED LIST changes: +ALBU2.5V10 PO; +ARIP10TA63 PO; -BUPR-597 PO; +BUPR-766 PO; +DULO1CAP6 PO; +GABA-1172 PO; +LEVO75TAB PO; +MODA100T13 PO; +MULTTAB61 PO; +SYMB16INH INH; +TIZA10TA PO
[2025-04-16] MEDS: ACETAMINOPHEN *IV* 1,000 MG in IV 1 EA IV ONE (19:55)
[2025-04-16 20:01] LABS: BASO # 0.0 10^3/uL (0.0-0.2); BASO % 0.5 % (0.0-1.0); EOS # 0.0 10^3/uL (0.0-0.5); EOS % 0.5 % (0.0-3.0); LYMPH # 0.7 10^3/uL (1.5-5.0); LYMPH % 7.6 % (24.0-44.0); MONO # 0.5 10^3/uL (0.0-0.8); MONO % 5.9 % (2.0-8.0); NEUTROPHILS # 7.4 10^3/uL (1.5-8.5); NEUTROPHILS % 85.0 % (36.0-66.0); PLATELET COUNT, AUTOMATED 242 10^3/uL (150-450)
[2025-04-16 20:19] LABS: KETONE, URINE AUTO RFX NEGATIVE (NEGATIVE); NITRITE, URINE AUTO RFX NEGATIVE (NEGATIVE); RBC, URINE AUTO RFX 27 /HPF (0-3); SQUAM EPITHELIAL CELL UR AURFX 0 /HPF (0-6)
[2025-04-16 20:22] LABS: LEUKOCYTE ESTERASE UR AUTO RFX 2+ (NEGATIVE); WBC, URINE AUTO RFX TNTC /HPF (0-3)
[2025-04-16 21:01] LABS: ALT/SGPT < 9 U/L (7.0-40); AST/SGOT 10 U/L (<34); CALCIUM LEVEL 10.2 MG/DL (8.5-10.1); CARBON DIOXIDE LEVEL 24.1 MMOL/L (20-31); CHLORIDE LEVEL 103 MMOL/L (98-107); CREATININE FOR GFR 1.26 MG/DL (0.55-1.30); GLOMERULAR FILTRATION RATE 49.2 (>51); POTASSIUM SERUM 4.6 MMOL/L (3.5-5.1); SODIUM LEVEL 139 MMOL/L (136-145)
[2025-04-16] MEDS: LevoFLOXacin IV 750 MG in IV 1 EA IV ONE (22:17)
[2025-04-16] MEDS ORDERED: MAALOX 30 ML SUSP *UDC PO PRN (23:55)
[2025-04-16] MEDS ORDERED: MOM 30 ML SUSPENSION UDC PO PRN (23:55)
[2025-04-17] MEDS ORDERED: ACET650T61 PO (00:01)
[2025-04-17] MEDS ORDERED: HOME MED LIST COMPLETE! XX SCH (00:05)
[2025-04-17 00:49] VITALS: BP 124/68; TEMP 98.1; O2SAT 100
[2025-04-17] MEDS: TACROLIMUS 1MG CAP PO SCH (00:58)
[2025-04-17] MEDS: SODIUM BICARBONATE 325 MG TAB PO SCH (00:58)
[2025-04-17] MEDS: HEPARIN SOD 5000 UNITS/ML 1 ML VIAL/SYRINGE SC SCH (00:59)
[2025-04-17] MEDS: ACETAMINOPHEN 325 MG TAB PO PRN (01:01)
[2025-04-17] MEDS: NYSTATIN 100,000 UNITS/GM TOPICAL PWD 15 GM TOP SCH (02:49)
[2025-04-17 03:57] VITALS: BP 131/63; TEMP 98.1; O2SAT 98
[2025-04-17 05:33] LABS: BASO # 0.0 10^3/uL (0.0-0.2); BASO % 0.6 % (0.0-1.0); EOS # 0.1 10^3/uL (0.0-0.5); EOS % 2.7 % (0.0-3.0); LYMPH # 0.9 10^3/uL (1.5-5.0); LYMPH % 16.2 % (24.0-44.0); MONO # 0.5 10^3/uL (0.0-0.8); MONO % 8.7 % (2.0-8.0); NEUTROPHILS # 3.8 10^3/uL (1.5-8.5); NEUTROPHILS % 71.4 % (36.0-66.0); PLATELET COUNT, AUTOMATED 211 10^3/uL (150-450)
[2025-04-17 05:58] LABS: CALCIUM LEVEL 9.5 MG/DL (8.5-10.1); CARBON DIOXIDE LEVEL 24.0 MMOL/L (20-31); CHLORIDE LEVEL 104.0 MMOL/L (98-107); CREATININE FOR GFR 1.29 MG/DL (0.55-1.30); GLOMERULAR FILTRATION RATE 47.8 (>51); MAGNESIUM LEVEL 1.2 MG/DL (1.8-2.4); POTASSIUM SERUM 4.6 MMOL/L (3.5-5.1); SODIUM LEVEL 137.0 MMOL/L (136-145)
[2025-04-17] MEDS: MAG SULF 1GM/100ML (MAG RUN) 1 GM in IV 1 EA IV SCH (06:27)
[2025-04-17] MEDS: PANTOPRAZOLE 40MG VIAL IV SCH (08:16)
[2025-04-17] MEDS: MODAFINIL 100 MG TABLET PO SCH (08:18)
[2025-04-17] MEDS: FERROUS SULFATE 325 MG TAB PO SCH (08:20)
[2025-04-17] MEDS: DOCUSATE SODIUM 100 MG CAPSULE PO SCH (08:20)
[2025-04-17] MEDS: SYMBICORT 160/4.5MCG INHALER 6GM INH SCH (08:58)
[2025-04-17] MEDS ORDERED: TACROLIMUS 1MG CAP PO SCH (09:00)
[2025-04-17] MEDS ORDERED: LevoFLOXacin IV 750 MG in IV 1 EA IV SCH (09:00)
[2025-04-17] MEDS ORDERED: AZATHIOPRINE PO SCH (09:00)
[2025-04-17 12:00] VITALS: BP 159/75; TEMP 97.3; O2SAT 99
[2025-04-17 17:00] VITALS: BP 163/87; TEMP 97.9
[2025-04-17 21:15] VITALS: BP 160/86; TEMP 97.3; O2SAT 96
[2025-04-18 06:13] VITALS: BP 158/85; TEMP 97.7; O2SAT 96
[2025-04-18 07:23] LABS: BASO # 0.0 10^3/uL (0.0-0.2); BASO % 0.5 % (0.0-1.0); EOS # 0.2 10^3/uL (0.0-0.5); EOS % 2.5 % (0.0-3.0); LYMPH # 1.0 10^3/uL (1.5-5.0); LYMPH % 14.9 % (24.0-44.0); MONO # 0.5 10^3/uL (0.0-0.8); MONO % 7.1 % (2.0-8.0); NEUTROPHILS # 4.8 10^3/uL (1.5-8.5); NEUTROPHILS % 74.7 % (36.0-66.0); PLATELET COUNT, AUTOMATED 219 10^3/uL (150-450)
[2025-04-18 07:57] LABS: CALCIUM LEVEL 10.2 MG/DL (8.5-10.1); CARBON DIOXIDE LEVEL 24.0 MMOL/L (20-31); CHLORIDE LEVEL 101.0 MMOL/L (98-107); CREATININE FOR GFR 1.5 MG/DL (0.55-1.30); GLOMERULAR FILTRATION RATE 39.9 (>51); MAGNESIUM LEVEL 2.0 MG/DL (1.8-2.4); POTASSIUM SERUM 5.4 MMOL/L (3.5-5.1); SODIUM LEVEL 133.0 MMOL/L (136-145)
[2025-04-18] MEDS: SENNOSIDES/DOCUSATE SODIUM 8.6 MG/50MG TAB PO SCH (09:00)
[2025-04-18] MEDS: BISACODYL 10 MG SUPP PR SCH (09:00)
[2025-04-18] MEDS: HumuLIN R (REGULAR) INSULIN (NovoLIN R) **100 U/ML** PER UNIT IV STA (10:06)
[2025-04-18] MEDS: DEXTROSE 50% 50 ML SYRINGE IV STA (10:24)
[2025-04-18] MEDS: ALBUTEROL SULFATE 2.5 MG/0.5 ML INH CONCENTRATE NEB SOLN NEB ONE (11:09)
[2025-04-18] MEDS: SODIUM CHLORIDE 0.9% 1000 ML IV SCH (11:55)
[2025-04-18 12:45] VITALS: BP 128/61; TEMP 97.7; O2SAT 98
[2025-04-18 14:05] LABS: CALCIUM LEVEL 9.8 MG/DL (8.5-10.1); CARBON DIOXIDE LEVEL 22.0 MMOL/L (20-31); CHLORIDE LEVEL 103.0 MMOL/L (98-107); CREATININE FOR GFR 1.39 MG/DL (0.55-1.30); GLOMERULAR FILTRATION RATE 43.7 (>51); POTASSIUM SERUM 4.1 MMOL/L (3.5-5.1); SODIUM LEVEL 136.0 MMOL/L (136-145)
[2025-04-18] MEDS: NS (Normal Saline) 0.9% 1,000 ML IV SCH (14:07)
[2025-04-18 20:12] VITALS: BP 131/64; TEMP 97.7; O2SAT 97
[2025-04-19 06:00] VITALS: BP 149/87; TEMP 97.5; O2SAT 97
[2025-04-19 07:51] LABS: CALCIUM LEVEL 9.6 MG/DL (8.5-10.1); CARBON DIOXIDE LEVEL 24.0 MMOL/L (20-31); CHLORIDE LEVEL 107.0 MMOL/L (98-107); CREATININE FOR GFR 1.35 MG/DL (0.55-1.30); GLOMERULAR FILTRATION RATE 45.3 (>51); MAGNESIUM LEVEL 1.6 MG/DL (1.8-2.4); POTASSIUM SERUM 5.3 MMOL/L (3.5-5.1); SODIUM LEVEL 138.0 MMOL/L (136-145)
[2025-04-19] MEDS ORDERED: ALBUTEROL SULFATE 2.5 MG/0.5 ML INH CONCENTRATE NEB SOLN INH PRN (10:25)
[2025-04-19] MEDS: DEXTROSE 50% 50 ML SYRINGE IV STA (10:42)
[2025-04-19] MEDS: HumuLIN R (REGULAR) INSULIN (NovoLIN R) **100 U/ML** PER UNIT IV STA (10:44)
[2025-04-19] MEDS: PATIROMER SORBITEX CALCIUM 8.4GM POWDER PACKET PO ONE (10:45)
[2025-04-19] MEDS: ALBUTEROL SULFATE 2.5 MG/0.5 ML INH CONCENTRATE NEB SOLN NEB SCH (11:02)
[2025-04-19] MEDS: NS (Normal Saline) 0.9% 1,000 ML IV SCH (11:09)
[2025-04-19] MEDS: PATIROMER SORBITEX CALCIUM 8.4GM POWDER PACKET PO SCH (13:02)
[2025-04-19 13:30] VITALS: BP 125/65; TEMP 97.9; O2SAT 97
[2025-04-19 17:42] LABS: CALCIUM LEVEL 9.7 MG/DL (8.5-10.1); CARBON DIOXIDE LEVEL 20.0 MMOL/L (20-31); CHLORIDE LEVEL 109.0 MMOL/L (98-107); CREATININE FOR GFR 1.27 MG/DL (0.55-1.30); GLOMERULAR FILTRATION RATE 48.7 (>51); POTASSIUM SERUM 4.6 MMOL/L (3.5-5.1); SODIUM LEVEL 140.0 MMOL/L (136-145)
[2025-04-19 19:47] VITALS: BP 125/66; TEMP 97.7; O2SAT 93
[2025-04-20 06:00] VITALS: BP 163/84; TEMP 98.1; O2SAT 96
[2025-04-20] MEDS ORDERED: LEVO75TAB PO (12:32)
[2025-04-20 12:40] VITALS: BP 153/80; TEMP 97.9; O2SAT 97
[2025-04-20] MEDS ORDERED: VELT1POW PO (15:39)
== END 2025-04-20 17:20 | disposition home or self-care (01) | DRG 690 ==
LOC: EDBD 18:54 → M ED 18:54 → M ED INP 18:55 → M MS4PR 04-17 00:38 → M MS5PR 04-17 16:55 → OBSVTOIN 04-19 07:17 → UNDODISOB 04-20 17:20
PROVIDERS: ADMIT Student in an Organized Health Care Education/Training Program; ATTEND Student in an Organized Health Care Education/Training Program
DX: N39.0 Urinary tract infection, site not specified (principal); Z94.0 Kidney transplant status; D84.9 Immunodeficiency, unspecified; N17.9 Acute kidney failure, unspecified; E87.5 Hyperkalemia; B96.20 Unspecified Escherichia coli [E. coli] as the cause of diseases classified elsewhere; N18.9 Chronic kidney disease, unspecified; E83.42 Hypomagnesemia; F32.A Depression, unspecified; F41.9 Anxiety disorder, unspecified; J45.909 Unspecified asthma, uncomplicated; D50.9 Iron deficiency anemia, unspecified; Z79.51 Long term (current) use of inhaled steroids; Z79.899 Other long term (current) drug therapy; Z88.6 Allergy status to analgesic agent; Z88.8 Allergy status to other drugs, medicaments and biological substances

== ENCOUNTER → 2025-04-24 | Outpatient (CLI) | payer MEDICARE, MEDICAID ==
[2025-04-24 14:31] LABS: BASO # 0.1 10^3/uL (0.0-0.2); BASO % 0.6 % (0.0-1.0); EOS # 0.1 10^3/uL (0.0-0.5); EOS % 1.0 % (0.0-3.0); LYMPH # 1.0 10^3/uL (1.5-5.0); LYMPH % 12.3 % (24.0-44.0); MONO # 0.4 10^3/uL (0.0-0.8); MONO % 4.9 % (2.0-8.0); NEUTROPHILS # 6.3 10^3/uL (1.5-8.5); NEUTROPHILS % 80.4 % (36.0-66.0); PLATELET COUNT, AUTOMATED 323 10^3/uL (150-450)
[2025-04-24 14:42] LABS: APPEARANCE, URINE CLOUDY (CLEAR); BACTERIA, URINE AUTO 1+ (NEGATIVE); BILIRUBIN, URINE AUTO NEGATIVE (NEGATIVE); BLOOD, URINE BLOOD NEGATIVE (NEGATIVE); GLUCOSE, URINE (UA) AUTO 1+ mg/dL (NEGATIVE); KETONE, URINE AUTO TRACE mg/dL (NEGATIVE); LEUKOCYTE ESTERASE, URINE AUTO 1+ (NEGATIVE); NITRITE, URINE AUTO NEGATIVE (NEGATIVE); PROTEIN, URINE AUTO NEGATIVE (NEGATIVE); RBC, URINE AUTO 0 /HPF (0-3); SPECIFIC GRAVITY URINE AUTO 1.014 (1.002-1.035); SQUAMOUS EPITHELIAL CELL UR AU 21 /HPF (0-6); UROBILINOGEN, URINE AUTO 0.2 mg/dL (0.0-2.0); WBC, URINE AUTO 37 /HPF (0-3)
[2025-04-24 15:07] LABS: ALT/SGPT 12.0 U/L (7.0-40); AST/SGOT 13.0 U/L (<34); CALCIUM LEVEL 10.2 MG/DL (8.5-10.1); CARBON DIOXIDE LEVEL 21.0 MMOL/L (20-31); CHLORIDE LEVEL 101.0 MMOL/L (98-107); CREATININE FOR GFR 1.83 MG/DL (0.55-1.30); GLOMERULAR FILTRATION RATE 31.4 (>51); MAGNESIUM LEVEL 1.3 MG/DL (1.8-2.4); PHOSPHORUS LEVEL 4.0 MG/DL (2.5-4.9); POTASSIUM SERUM 5.6 MMOL/L (3.5-5.1); SODIUM LEVEL 135.0 MMOL/L (136-145)
== END ==
LOC: M LAB 12:57
PROVIDERS: ATTEND Internal Medicine
DX: Z94.0 Kidney transplant status (principal); N18.5 Chronic kidney disease, stage 5; D64.9 Anemia, unspecified; Z79.899 Other long term (current) drug therapy; E87.6 Hypokalemia

== ENCOUNTER → 2025-04-24 | Outpatient (CLI) | payer MEDICARE, MEDICAID ==
[2025-04-24 15:03] LABS: CALCIUM LEVEL 10.3 MG/DL (8.5-10.1); CARBON DIOXIDE LEVEL 22.0 MMOL/L (20-31); CHLORIDE LEVEL 103.0 MMOL/L (98-107); CREATININE FOR GFR 1.82 MG/DL (0.55-1.30); GLOMERULAR FILTRATION RATE 31.6 (>51); POTASSIUM SERUM 5.6 MMOL/L (3.5-5.1); SODIUM LEVEL 136.0 MMOL/L (136-145)
== END ==
LOC: M LAB 13:00
PROVIDERS: ATTEND Student in an Organized Health Care Education/Training Program
DX: E87.6 Hypokalemia (principal)

== ENCOUNTER 2025-04-26 09:43 | Inpatient (IN) | payer MEDICARE, MEDICAID ==
[~2025-04-26] VITALS: Ht 165.1 cm; Wt 71.4 kg
[2025-04-26 10:52] LABS: BASO # 0.0 10^3/uL (0.0-0.2); BASO % 0.8 % (0.0-1.0); EOS # 0.1 10^3/uL (0.0-0.5); EOS % 3.0 % (0.0-3.0); LYMPH # 0.9 10^3/uL (1.5-5.0); LYMPH % 19.0 % (24.0-44.0); MONO # 0.4 10^3/uL (0.0-0.8); MONO % 7.4 % (2.0-8.0); NEUTROPHILS # 3.3 10^3/uL (1.5-8.5); NEUTROPHILS % 69.2 % (36.0-66.0); PLATELET COUNT, AUTOMATED 250 10^3/uL (150-450)
[2025-04-26 11:14] LABS: CALCIUM LEVEL 9.8 MG/DL (8.5-10.1); CARBON DIOXIDE LEVEL 21.0 MMOL/L (20-31); CHLORIDE LEVEL 105.0 MMOL/L (98-107); CREATININE FOR GFR 1.91 MG/DL (0.55-1.30); GLOMERULAR FILTRATION RATE 29.9 (>51); POTASSIUM SERUM 4.7 MMOL/L (3.5-5.1); SODIUM LEVEL 138.0 MMOL/L (136-145)
[2025-04-26] MEDS ORDERED: LEVO1TAB40 PO (12:46)
[2025-04-26] MEDS ORDERED: HOME MED LIST COMPLETE! XX SCH (12:50)
[2025-04-26] MEDS ORDERED: ALBUTEROL SULFATE 2.5 MG/0.5 ML INH CONCENTRATE NEB SOLN NEB PRN (13:00)
[2025-04-26] MEDS ORDERED: ALBUTEROL 90 MCG/ACT 8 GM HFA INHALER INH PRN (13:00)
[2025-04-26 13:03] LABS: KETONE, URINE AUTO RFX NEGATIVE (NEGATIVE); LEUKOCYTE ESTERASE UR AUTO RFX NEGATIVE (NEGATIVE); NITRITE, URINE AUTO RFX NEGATIVE (NEGATIVE); RBC, URINE AUTO RFX 0 /HPF (0-3); SQUAM EPITHELIAL CELL UR AURFX 1 /HPF (0-6); WBC, URINE AUTO RFX 3 /HPF (0-3)
[2025-04-26] MEDS: NS (Normal Saline) 0.9% 1,000 ML IV SCH (13:12)
[2025-04-26] MEDS: MULTIVITAMINS/MINERALS THERAP 1 TAB PO SCH (13:15)
[2025-04-26] MEDS: MODAFINIL 100 MG TABLET PO SCH (13:38)
[2025-04-26] MEDS: SODIUM BICARBONATE 325 MG TAB PO SCH (18:23)
[2025-04-26] MEDS: SYMBICORT 160/4.5MCG INHALER 6GM INH SCH (19:41)
[2025-04-26 20:45] VITALS: BP 102/63; TEMP 96; O2SAT 100
[2025-04-26] MEDS ORDERED: TACROLIMUS 1MG CAP PO SCH (21:00)
[2025-04-26] MEDS: TACROLIMUS 1MG CAP PO SCH (22:22)
[2025-04-27 06:20] VITALS: BP 128/90; TEMP 96.5; O2SAT 99
[2025-04-27 07:40] LABS: BASO # 0.1 10^3/uL (0.0-0.2); BASO % 1.1 % (0.0-1.0); EOS # 0.2 10^3/uL (0.0-0.5); EOS % 4.6 % (0.0-3.0); LYMPH # 1.1 10^3/uL (1.5-5.0); LYMPH % 22.6 % (24.0-44.0); MONO # 0.4 10^3/uL (0.0-0.8); MONO % 9.1 % (2.0-8.0); NEUTROPHILS # 2.9 10^3/uL (1.5-8.5); NEUTROPHILS % 62.0 % (36.0-66.0); PLATELET COUNT, AUTOMATED 228 10^3/uL (150-450)
[2025-04-27 08:01] LABS: CALCIUM LEVEL 9.1 MG/DL (8.5-10.1); CARBON DIOXIDE LEVEL 21 MMOL/L (20-31); CHLORIDE LEVEL 110 MMOL/L (98-107); CREATININE FOR GFR 1.76 MG/DL (0.55-1.30); GLOMERULAR FILTRATION RATE 32.9 (>51); POTASSIUM SERUM 4.9 MMOL/L (3.5-5.1); SODIUM LEVEL 141 MMOL/L (136-145)
[2025-04-27] MEDS: NS (Normal Saline) 0.9% 1,000 ML IV ONE (09:03)
[2025-04-27] MEDS: NS (Normal Saline) 0.9% 1,000 ML IV SCH (09:04)
[2025-04-27 09:07] LABS: ERYTHROCYTE SEDIMENTATION RATE 7 mm/hr (0-30)
[2025-04-27 09:10] LABS: C REACTIVE PROTEIN QUANTITATIV < 0.50 MG/DL (<1.0)
[2025-04-27 14:00] VITALS: BP 124/81; TEMP 97.5; O2SAT 98
[2025-04-27 17:04] LABS: CALCIUM LEVEL 8.5 MG/DL (8.5-10.1); CARBON DIOXIDE LEVEL 22.0 MMOL/L (20-31); CHLORIDE LEVEL 109.0 MMOL/L (98-107); CREATININE FOR GFR 1.59 MG/DL (0.55-1.30); GLOMERULAR FILTRATION RATE 37.2 (>51); POTASSIUM SERUM 5.0 MMOL/L (3.5-5.1); SODIUM LEVEL 140.0 MMOL/L (136-145)
[2025-04-27 19:59] VITALS: BP 126/74; TEMP 98.6; O2SAT 96
[2025-04-27] MEDS: ACETAMINOPHEN 650 MG ER TAB PO PRN (20:19)
[2025-04-28 05:15] VITALS: BP 136/87; TEMP 96.9; O2SAT 97
[2025-04-28 06:28] LABS: BASO # 0.1 10^3/uL (0.0-0.2); BASO % 0.9 % (0.0-1.0); EOS # 0.3 10^3/uL (0.0-0.5); EOS % 4.7 % (0.0-3.0); LYMPH # 1.2 10^3/uL (1.5-5.0); LYMPH % 20.1 % (24.0-44.0); MONO # 0.5 10^3/uL (0.0-0.8); MONO % 8.4 % (2.0-8.0); NEUTROPHILS # 3.7 10^3/uL (1.5-8.5); NEUTROPHILS % 65.5 % (36.0-66.0); PLATELET COUNT, AUTOMATED 204 10^3/uL (150-450)
[2025-04-28 07:03] LABS: CALCIUM LEVEL 8.7 MG/DL (8.5-10.1); CARBON DIOXIDE LEVEL 20.0 MMOL/L (20-31); CHLORIDE LEVEL 108.0 MMOL/L (98-107); CREATININE FOR GFR 1.53 MG/DL (0.55-1.30); GLOMERULAR FILTRATION RATE 39.0 (>51); POTASSIUM SERUM 5.1 MMOL/L (3.5-5.1); SODIUM LEVEL 139.0 MMOL/L (136-145)
[2025-04-28] MEDS: NS (Normal Saline) 0.9% 1,000 ML IV ONE (08:55)
[2025-04-28] MEDS: PATIROMER SORBITEX CALCIUM 8.4GM POWDER PACKET PO ONE (08:55)
[2025-04-28 14:00] VITALS: TEMP 98.2; O2SAT 96
[2025-04-28 14:58] LABS: CALCIUM LEVEL 10.3 MG/DL (8.5-10.1); CARBON DIOXIDE LEVEL 23.0 MMOL/L (20-31); CHLORIDE LEVEL 109.0 MMOL/L (98-107); CREATININE FOR GFR 1.31 MG/DL (0.55-1.30); GLOMERULAR FILTRATION RATE 46.9 (>51); POTASSIUM SERUM 4.5 MMOL/L (3.5-5.1); SODIUM LEVEL 142.0 MMOL/L (136-145)
[2025-04-28 19:35] VITALS: BP 141/76; TEMP 97.8; O2SAT 98
[2025-04-29 05:00] VITALS: BP 161/83; TEMP 97.7; O2SAT 100
[2025-04-29] MEDS: NS 0.45% 1,000 ML IV ONE ×2 (07:31→08:00)
[2025-04-29 07:34] LABS: BASO # 0.1 10^3/uL (0.0-0.2); BASO % 0.9 % (0.0-1.0); EOS # 0.3 10^3/uL (0.0-0.5); EOS % 3.9 % (0.0-3.0); LYMPH # 1.2 10^3/uL (1.5-5.0); LYMPH % 18.6 % (24.0-44.0); MONO # 0.6 10^3/uL (0.0-0.8); MONO % 8.7 % (2.0-8.0); NEUTROPHILS # 4.3 10^3/uL (1.5-8.5); NEUTROPHILS % 67.6 % (36.0-66.0); PLATELET COUNT, AUTOMATED 192 10^3/uL (150-450)
[2025-04-29 07:58] LABS: CALCIUM LEVEL 8.7 MG/DL (8.5-10.1); CARBON DIOXIDE LEVEL 19.0 MMOL/L (20-31); CHLORIDE LEVEL 112.0 MMOL/L (98-107); CREATININE FOR GFR 1.15 MG/DL (0.55-1.30); GLOMERULAR FILTRATION RATE 54.9 (>51); POTASSIUM SERUM 5.1 MMOL/L (3.5-5.1); SODIUM LEVEL 141.0 MMOL/L (136-145)
[2025-04-29] MEDS: NS 0.45% 1,000 ML IV SCH (09:00)
== END 2025-04-29 11:40 | disposition home or self-care (01) | DRG 683 ==
LOC: M ED 09:43 → M ED INP 12:39 → UNDOADMIN 12:43 → M MS5PR 20:10
PROVIDERS: ADMIT General Practice; ATTEND General Practice
DX: N17.9 Acute kidney failure, unspecified (principal); Z94.0 Kidney transplant status; Q60.0 Renal agenesis, unilateral; R68.0 Hypothermia, not associated with low environmental temperature; D50.9 Iron deficiency anemia, unspecified; E87.5 Hyperkalemia; R00.0 Tachycardia, unspecified; N13.30 Unspecified hydronephrosis; F41.9 Anxiety disorder, unspecified; M54.9 Dorsalgia, unspecified; F32.A Depression, unspecified; J45.909 Unspecified asthma, uncomplicated; Z79.899 Other long term (current) drug therapy; Z88.1 Allergy status to other antibiotic agents; Z88.6 Allergy status to analgesic agent; G89.29 Other chronic pain

== ENCOUNTER → 2025-05-16 | Outpatient (CLI) | payer MEDICARE, MEDICAID ==
[2025-05-16 12:36] LABS: APPEARANCE, URINE CLEAR (CLEAR); BACTERIA, URINE AUTO NEGATIVE (NEGATIVE); BILIRUBIN, URINE AUTO NEGATIVE (NEGATIVE); BLOOD, URINE BLOOD NEGATIVE (NEGATIVE); GLUCOSE, URINE (UA) AUTO 1+ mg/dL (NEGATIVE); KETONE, URINE AUTO NEGATIVE (NEGATIVE); LEUKOCYTE ESTERASE, URINE AUTO NEGATIVE (NEGATIVE); MUCUS, URINE SMALL (NEGATIVE); NITRITE, URINE AUTO NEGATIVE (NEGATIVE); PROTEIN, URINE AUTO NEGATIVE (NEGATIVE); RBC, URINE AUTO 0 /HPF (0-3); SPECIFIC GRAVITY URINE AUTO 1.009 (1.002-1.035); SQUAMOUS EPITHELIAL CELL UR AU 4 /HPF (0-6); UROBILINOGEN, URINE AUTO 0.2 mg/dL (0.0-2.0); WBC, URINE AUTO 1 /HPF (0-3)
[2025-05-16 12:41] LABS: BASO # 0.1 10^3/uL (0.0-0.2); BASO % 0.8 % (0.0-1.0); EOS # 0.2 10^3/uL (0.0-0.5); EOS % 3.7 % (0.0-3.0); LYMPH # 1.2 10^3/uL (1.5-5.0); LYMPH % 19.1 % (24.0-44.0); MONO # 0.4 10^3/uL (0.0-0.8); MONO % 6.3 % (2.0-8.0); NEUTROPHILS # 4.5 10^3/uL (1.5-8.5); NEUTROPHILS % 69.8 % (36.0-66.0)
[2025-05-16 13:00] LABS: PLATELET COUNT, AUTOMATED 112 10^3/uL (150-450)
[2025-05-16 13:07] LABS: TOTAL PROTEIN,RANDOM URINE 25.4 MG/DL (0.0-14.0)
[2025-05-16 13:18] LABS: ALT/SGPT 12.0 U/L (7.0-40); AST/SGOT 18.0 U/L (<34); CALCIUM LEVEL 10.6 MG/DL (8.5-10.1); CARBON DIOXIDE LEVEL 21.0 MMOL/L (20-31); CHLORIDE LEVEL 104.0 MMOL/L (98-107); CREATININE FOR GFR 1.2 MG/DL (0.55-1.30); GLOMERULAR FILTRATION RATE 52.1 (>51); MAGNESIUM LEVEL 1.3 MG/DL (1.8-2.4); PHOSPHORUS LEVEL 3.2 MG/DL (2.5-4.9); POTASSIUM SERUM 4.8 MMOL/L (3.5-5.1); SODIUM LEVEL 140.0 MMOL/L (136-145)
== END ==
LOC: M LAB 11:36
PROVIDERS: ATTEND Internal Medicine
DX: Z94.0 Kidney transplant status (principal); N18.5 Chronic kidney disease, stage 5; D84.9 Immunodeficiency, unspecified; Z79.899 Other long term (current) drug therapy

== ENCOUNTER 2025-06-25 12:31 | Inpatient (IN) | payer MEDICARE, MEDICAID ==
[~2025-06-25] VITALS: Ht 165.1 cm; Wt 74.5 kg
[2025-06-25 13:32] LABS: BASO # 0.0 10^3/uL (0.0-0.2); BASO % 0.6 % (0.0-1.0); EOS # 0.4 10^3/uL (0.0-0.5); EOS % 7.2 % (0.0-3.0); LYMPH # 0.8 10^3/uL (1.5-5.0); LYMPH % 14.7 % (24.0-44.0); MONO # 0.4 10^3/uL (0.0-0.8); MONO % 7.7 % (2.0-8.0); NEUTROPHILS # 3.7 10^3/uL (1.5-8.5); NEUTROPHILS % 69.6 % (36.0-66.0); PLATELET COUNT, AUTOMATED 186 10^3/uL (150-450)
[2025-06-25 14:06] LABS: ALT/SGPT 97 U/L (7.0-40); AST/SGOT 136 U/L (<34); CALCIUM LEVEL 9.9 MG/DL (8.5-10.1); CARBON DIOXIDE LEVEL 18 MMOL/L (20-31); CHLORIDE LEVEL 110 MMOL/L (98-107); CREATININE FOR GFR 1.35 MG/DL (0.55-1.30); GLOMERULAR FILTRATION RATE 45.3 (>51); POTASSIUM SERUM 5.7 MMOL/L (3.5-5.1); SODIUM LEVEL 139 MMOL/L (136-145)
[2025-06-25] MEDS: NS (Normal Saline) 0.9% 1,000 ML IV ONE (15:23)
[2025-06-25] MEDS: DEXTROSE 50% 50 ML SYRINGE IV ONE (15:50)
[2025-06-25] MEDS: SODIUM BICARBONATE 8.4% INJ 50ML SYRINGE IV ONE (15:50)
[2025-06-25] MEDS: HumuLIN R (REGULAR) INSULIN (NovoLIN R) **100 U/ML** PER UNIT IV ONE (15:54)
[2025-06-25 15:56] LABS: KETONE, URINE AUTO RFX NEGATIVE (NEGATIVE); LEUKOCYTE ESTERASE UR AUTO RFX NEGATIVE (NEGATIVE); NITRITE, URINE AUTO RFX NEGATIVE (NEGATIVE); RBC, URINE AUTO RFX 0 /HPF (0-3); SQUAM EPITHELIAL CELL UR AURFX 1 /HPF (0-6); WBC, URINE AUTO RFX 2 /HPF (0-3)
[2025-06-25] MEDS ORDERED: REXU1TAB4 PO (16:02)
[2025-06-25] MEDS ORDERED: HOME MED LIST COMPLETE! XX SCH (16:05)
[2025-06-25] MEDS ORDERED: MOM 30 ML SUSPENSION UDC PO PRN (17:40)
[2025-06-25] MEDS ORDERED: MAALOX 30 ML SUSP *UDC PO PRN (17:40)
[2025-06-25 18:07] LABS: CALCIUM LEVEL 10.5 MG/DL (8.5-10.1); CARBON DIOXIDE LEVEL 18.0 MMOL/L (20-31); CHLORIDE LEVEL 110.0 MMOL/L (98-107); CREATININE FOR GFR 1.27 MG/DL (0.55-1.30); GLOMERULAR FILTRATION RATE 48.7 (>51); POTASSIUM SERUM 5.4 MMOL/L (3.5-5.1); SODIUM LEVEL 142.0 MMOL/L (136-145)
[2025-06-25] MEDS ORDERED: ALBUTEROL SULFATE 2.5 MG/0.5 ML INH CONCENTRATE NEB SOLN INH PRN (18:20)
[2025-06-25] MEDS: ACETAMINOPHEN 325 MG TAB PO PRN (18:52)
[2025-06-25] MEDS: ALBUTEROL SULFATE 2.5 MG/0.5 ML INH CONCENTRATE NEB SOLN NEB SCH (19:21)
[2025-06-25] MEDS: PATIROMER SORBITEX CALCIUM 8.4GM POWDER PACKET PO SCH (19:25)
[2025-06-25] MEDS: SYMBICORT 160/4.5MCG INHALER 6GM INH SCH (20:00)
[2025-06-25] MEDS ORDERED: TACROLIMUS 1MG CAP PO SCH (21:00)
[2025-06-25] MEDS ORDERED: SODIUM BICARBONATE 325 MG TAB PO SCH (21:00)
[2025-06-25] MEDS: SODIUM BICARBONATE 325 MG TAB PO SCH (21:45)
[2025-06-25] MEDS: TACROLIMUS 1MG CAP PO SCH (21:48)
[2025-06-25] MEDS: SODIUM BICARBONATE 75 MEQ in NS 0.45% 1,000 ML IV SCH (21:48)
[2025-06-25 22:45] LABS: CALCIUM LEVEL 9.4 MG/DL (8.5-10.1); CARBON DIOXIDE LEVEL 21.0 MMOL/L (20-31); CHLORIDE LEVEL 111.0 MMOL/L (98-107); CREATININE FOR GFR 1.24 MG/DL (0.55-1.30); GLOMERULAR FILTRATION RATE 50.1 (>51); POTASSIUM SERUM 5.6 MMOL/L (3.5-5.1); SODIUM LEVEL 140.0 MMOL/L (136-145)
[2025-06-26 07:32] LABS: CALCIUM LEVEL 9.9 MG/DL (8.5-10.1); CARBON DIOXIDE LEVEL 22.0 MMOL/L (20-31); CHLORIDE LEVEL 110.0 MMOL/L (98-107); CREATININE FOR GFR 1.23 MG/DL (0.55-1.30); GLOMERULAR FILTRATION RATE 50.6 (>51); MAGNESIUM LEVEL 1.5 MG/DL (1.8-2.4); POTASSIUM SERUM 6.0 MMOL/L (3.5-5.1); SODIUM LEVEL 140.0 MMOL/L (136-145)
[2025-06-26] MEDS: SENNOSIDES/DOCUSATE SODIUM 8.6 MG/50MG TAB PO SCH (09:00)
[2025-06-26] MEDS: HEPARIN SOD 5000 UNITS/ML 1 ML VIAL/SYRINGE SQ SCH (09:00)
[2025-06-26] MEDS: BISACODYL 10 MG SUPP PR SCH (09:00)
[2025-06-26] MEDS: PERCOCET 5MG/325MG TAB PO ONE (09:48)
[2025-06-26] MEDS: HumuLIN R (REGULAR) INSULIN (NovoLIN R) **100 U/ML** PER UNIT IV STA (09:50)
[2025-06-26] MEDS: DEXTROSE 50% 50 ML SYRINGE IV STA (09:50)
[2025-06-26] MEDS: ALBUTEROL SULFATE 2.5 MG/0.5 ML INH CONCENTRATE NEB SOLN NEB SCH (10:29)
[2025-06-26] MEDS ORDERED: SODIUM BICARBONATE 75 MEQ in NS 0.45% 1,000 ML IV SCH (10:40)
[2025-06-26 11:05] VITALS: BP 141/70; TEMP 97; O2SAT 98
[2025-06-26 11:38] LABS: CALCIUM LEVEL 10.1 MG/DL (8.5-10.1); CARBON DIOXIDE LEVEL 20.0 MMOL/L (20-31); CHLORIDE LEVEL 111.0 MMOL/L (98-107); CREATININE FOR GFR 1.19 MG/DL (0.55-1.30); GLOMERULAR FILTRATION RATE 52.7 (>51); POTASSIUM SERUM 5.4 MMOL/L (3.5-5.1); SODIUM LEVEL 141.0 MMOL/L (136-145)
[2025-06-26] MEDS: MAG SULF 1GM/100ML (MAG RUN) 1 GM in IV 1 EA IV SCH (12:04)
[2025-06-26] MEDS: MODAFINIL 100 MG TABLET PO SCH (12:50)
[2025-06-26] MEDS: ACETAMINOPHEN 650 MG ER TAB PO PRN (12:51)
[2025-06-26 15:51] LABS: CALCIUM LEVEL 9.9 MG/DL (8.5-10.1); CARBON DIOXIDE LEVEL 22.0 MMOL/L (20-31); CHLORIDE LEVEL 110.0 MMOL/L (98-107); CREATININE FOR GFR 1.14 MG/DL (0.55-1.30); GLOMERULAR FILTRATION RATE 55.5 (>51); POTASSIUM SERUM 5.3 MMOL/L (3.5-5.1); SODIUM LEVEL 140.0 MMOL/L (136-145)
[2025-06-26 16:57] VITALS: BP 139/72
[2025-06-26] MEDS: FUROSEMIDE 40 MG/4 ML VIAL IV ONE (17:00)
[2025-06-26 19:41] LABS: CALCIUM LEVEL 9.6 MG/DL (8.5-10.1); CARBON DIOXIDE LEVEL 24.0 MMOL/L (20-31); CHLORIDE LEVEL 106.0 MMOL/L (98-107); CREATININE FOR GFR 1.18 MG/DL (0.55-1.30); GLOMERULAR FILTRATION RATE 53.2 (>51); POTASSIUM SERUM 5.4 MMOL/L (3.5-5.1); SODIUM LEVEL 139.0 MMOL/L (136-145)
[2025-06-26 21:19] VITALS: BP 127/66; TEMP 99.2; O2SAT 97
[2025-06-26 22:00] VITALS: O2SAT 96
[2025-06-27] VITALS (7 sets, daily range): BP systolic 124–146; BP diastolic 69–84; TEMP 97.3–99.1; O2SAT 95–98
[2025-06-27 00:06] LABS: CALCIUM LEVEL 8.8 MG/DL (8.5-10.1); CARBON DIOXIDE LEVEL 25.0 MMOL/L (20-31); CHLORIDE LEVEL 106.0 MMOL/L (98-107); CREATININE FOR GFR 1.34 MG/DL (0.55-1.30); GLOMERULAR FILTRATION RATE 45.7 (>51); POTASSIUM SERUM 5.7 MMOL/L (3.5-5.1); SODIUM LEVEL 138.0 MMOL/L (136-145)
[2025-06-27 04:10] LABS: CALCIUM LEVEL 8.7 MG/DL (8.5-10.1); CARBON DIOXIDE LEVEL 23.0 MMOL/L (20-31); CHLORIDE LEVEL 106.0 MMOL/L (98-107); CREATININE FOR GFR 1.27 MG/DL (0.55-1.30); GLOMERULAR FILTRATION RATE 48.7 (>51); POTASSIUM SERUM 6.0 MMOL/L (3.5-5.1); SODIUM LEVEL 138.0 MMOL/L (136-145)
[2025-06-27 07:10] LABS: CALCIUM LEVEL 9.2 MG/DL (8.5-10.1); CARBON DIOXIDE LEVEL 25.0 MMOL/L (20-31); CHLORIDE LEVEL 106.0 MMOL/L (98-107); CREATININE FOR GFR 1.24 MG/DL (0.55-1.30); GLOMERULAR FILTRATION RATE 50.1 (>51); POTASSIUM SERUM 5.5 MMOL/L (3.5-5.1); SODIUM LEVEL 140.0 MMOL/L (136-145)
[2025-06-27] MEDS: FUROSEMIDE 40 MG/4 ML VIAL IV SCH (09:28)
[2025-06-27 12:44] LABS: CALCIUM LEVEL 9.9 MG/DL (8.5-10.1); CARBON DIOXIDE LEVEL 25.0 MMOL/L (20-31); CHLORIDE LEVEL 105.0 MMOL/L (98-107); CREATININE FOR GFR 1.24 MG/DL (0.55-1.30); GLOMERULAR FILTRATION RATE 50.1 (>51); POTASSIUM SERUM 5.8 MMOL/L (3.5-5.1); SODIUM LEVEL 139.0 MMOL/L (136-145)
[2025-06-27] MEDS: DEXTROSE 50% 50 ML SYRINGE IV STA (13:55)
[2025-06-27] MEDS: HumuLIN R (REGULAR) INSULIN (NovoLIN R) **100 U/ML** PER UNIT IV STA (13:56)
[2025-06-27] MEDS: ALBUTEROL SULFATE 2.5 MG/0.5 ML INH CONCENTRATE NEB SOLN NEB SCH (15:02)
[2025-06-27 19:33] LABS: CALCIUM LEVEL 9.4 MG/DL (8.5-10.1); CARBON DIOXIDE LEVEL 23.0 MMOL/L (20-31); CHLORIDE LEVEL 103.0 MMOL/L (98-107); CREATININE FOR GFR 1.28 MG/DL (0.55-1.30); GLOMERULAR FILTRATION RATE 48.3 (>51); POTASSIUM SERUM 5.1 MMOL/L (3.5-5.1); SODIUM LEVEL 137.0 MMOL/L (136-145)
[2025-06-28 02:48] VITALS: TEMP 96.9
[2025-06-28 04:52] VITALS: BP 152/76; TEMP 97.2; O2SAT 97
[2025-06-28 07:17] LABS: CALCIUM LEVEL 9.3 MG/DL (8.5-10.1); CARBON DIOXIDE LEVEL 27.0 MMOL/L (20-31); CHLORIDE LEVEL 105.0 MMOL/L (98-107); CREATININE FOR GFR 1.28 MG/DL (0.55-1.30); GLOMERULAR FILTRATION RATE 48.3 (>51); MAGNESIUM LEVEL 1.4 MG/DL (1.8-2.4); POTASSIUM SERUM 4.9 MMOL/L (3.5-5.1); SODIUM LEVEL 141.0 MMOL/L (136-145)
[2025-06-28 08:15] LABS: PLATELET COUNT, AUTOMATED 187 10^3/uL (150-450)
[2025-06-28 12:00] VITALS: BP 156/79; TEMP 98.8; O2SAT 100
[2025-06-28] MEDS: MAGNESIUM OXIDE 400 MG TAB PO SCH (14:43)
[2025-06-28] MEDS ORDERED: SODI650T PO (18:32)
[2025-06-28] MEDS ORDERED: VELT1POW PO (18:32)
[2025-06-28] MEDS ORDERED: DOCU8.6T PO (18:32)
[2025-06-28] MEDS ORDERED: MAGN400T33 PO (18:32)
== END 2025-06-28 19:44 | disposition home or self-care (01) | DRG 641 ==
LOC: M ED 12:31 → M ED INP 17:39 → M MSPAV 06-26 11:06
PROVIDERS: ADMIT Student in an Organized Health Care Education/Training Program; ATTEND Student in an Organized Health Care Education/Training Program
DX: E87.5 Hyperkalemia (principal); N17.9 Acute kidney failure, unspecified; Z94.0 Kidney transplant status; F41.9 Anxiety disorder, unspecified; F32.A Depression, unspecified; J45.909 Unspecified asthma, uncomplicated; D50.9 Iron deficiency anemia, unspecified; G62.9 Polyneuropathy, unspecified; N18.9 Chronic kidney disease, unspecified; D63.8 Anemia in other chronic diseases classified elsewhere; Z79.51 Long term (current) use of inhaled steroids; Z79.899 Other long term (current) drug therapy; Z88.6 Allergy status to analgesic agent; Z88.2 Allergy status to sulfonamides

== ENCOUNTER 2025-07-04 16:45 | Emergency (ER) | payer MEDICARE, MEDICAID ==
[~2025-07-04] VITALS: Ht 165.1 cm; Wt 70.9 kg
[~2025-07-04 16:45] MED LIST changes: +DOCU8.6T PO; +MAGN400T33 PO; +REXU1TAB4 PO
[2025-07-04 18:44] LABS: PLATELET COUNT, AUTOMATED 276 10^3/uL (150-450)
[2025-07-04 19:03] LABS: INR 0.83
[2025-07-04 19:17] LABS: ALT/SGPT 57 U/L (7.0-40); AST/SGOT 70 U/L (<34); C REACTIVE PROTEIN QUANTITATIV < 0.50 MG/DL (<1.0); CALCIUM LEVEL 9.9 MG/DL (8.5-10.1); CARBON DIOXIDE LEVEL 22 MMOL/L (20-31); CHLORIDE LEVEL 107 MMOL/L (98-107); CREATININE FOR GFR 1.41 MG/DL (0.55-1.30); GLOMERULAR FILTRATION RATE 43.0 (>51); MAGNESIUM LEVEL 1.7 MG/DL (1.8-2.4); POTASSIUM SERUM 5.5 MMOL/L (3.5-5.1); SODIUM LEVEL 139 MMOL/L (136-145)
[2025-07-04 19:23] LABS: ATYPICAL LYMPH 2 % (0-5); EOSINOPHILS 10 % (0-3); LYMPHOCYTES 11 % (16-44); MONOCYTES 9 % (0-5); NEUTROPHILS 68 % (28-66); PLATELET ESTIMATE NORMAL (NORMAL)
[2025-07-04 22:14] VITALS: BP 144/97
[2025-07-04 22:36] LABS: KETONE, URINE AUTO RFX NEGATIVE (NEGATIVE); LEUKOCYTE ESTERASE UR AUTO RFX NEGATIVE (NEGATIVE); NITRITE, URINE AUTO RFX NEGATIVE (NEGATIVE); RBC, URINE AUTO RFX 0 /HPF (0-3); SQUAM EPITHELIAL CELL UR AURFX 2 /HPF (0-6); WBC, URINE AUTO RFX 2 /HPF (0-3)
[2025-07-05] MEDS ORDERED: LASI40TA9 PO (01:31)
[2025-07-05 01:47] VITALS: BP 163/90
[2025-07-05] MEDS: FUROSEMIDE 40 MG TAB PO ONE (01:47)
[2025-07-05] MEDS: MAG SULF 1GM/100ML (MAG RUN) 1 GM in IV 1 EA IV ONE (01:48)
[2025-07-05 04:44] VITALS: TEMP 97; O2SAT 98
== END 2025-07-05 04:47 | disposition home or self-care (01) ==
LOC: M ED 16:45
DX: R22.43 Localized swelling, mass and lump, lower limb, bilateral (principal); R53.1 Weakness; R94.31 Abnormal electrocardiogram [ECG] [EKG]; D64.9 Anemia, unspecified; N18.9 Chronic kidney disease, unspecified; Z88.6 Allergy status to analgesic agent; Z88.1 Allergy status to other antibiotic agents; Z91.09 Other allergy status, other than to drugs and biological substances; Z79.1 Long term (current) use of non-steroidal anti-inflammatories (NSAID); Z79.51 Long term (current) use of inhaled steroids; Z79.899 Other long term (current) drug therapy; Z79.810 Long term (current) use of selective estrogen receptor modulators (SERMs)
CPT/HCPCS: 71046; 76775; 80048; 80076; 81001; 83690; 83735; 83880; 84443; 85025; 85610; 85652; 85730; 86140; 93005; 93041; 93970; 94760; 96365; 96366; 99285; J3475

== ENCOUNTER → 2025-07-21 | Outpatient (CLI) | payer MEDICARE, MEDICAID ==
[~2025-07-21] MED LIST changes: +CARV12.5; +LASI40TA9 PO; +TORS20TA2
[2025-07-21 11:39] LABS: PLATELET COUNT, AUTOMATED 254 10^3/uL (150-450)
[2025-07-21 11:51] LABS: APPEARANCE, URINE CLEAR (CLEAR); BACTERIA, URINE AUTO NEGATIVE (NEGATIVE); BILIRUBIN, URINE AUTO NEGATIVE (NEGATIVE); BLOOD, URINE BLOOD NEGATIVE (NEGATIVE); GLUCOSE, URINE (UA) AUTO NEGATIVE (NEGATIVE); KETONE, URINE AUTO NEGATIVE (NEGATIVE); LEUKOCYTE ESTERASE, URINE AUTO NEGATIVE (NEGATIVE); NITRITE, URINE AUTO NEGATIVE (NEGATIVE); PROTEIN, URINE AUTO NEGATIVE (NEGATIVE); RBC, URINE AUTO 0 /HPF (0-3); SPECIFIC GRAVITY URINE AUTO 1.009 (1.002-1.035); SQUAMOUS EPITHELIAL CELL UR AU 0 /HPF (0-6); UROBILINOGEN, URINE AUTO 0.2 mg/dL (0.0-2.0); WBC, URINE AUTO 0 /HPF (0-3)
[2025-07-21 11:56] LABS: ALT/SGPT 136.0 U/L (7.0-40); AST/SGOT 71.0 U/L (<34); CALCIUM LEVEL 10.0 MG/DL (8.5-10.1); CARBON DIOXIDE LEVEL 20.0 MMOL/L (20-31); CHLORIDE LEVEL 110.0 MMOL/L (98-107); CREATININE FOR GFR 1.68 MG/DL (0.55-1.30); GLOMERULAR FILTRATION RATE 34.8 (>51); MAGNESIUM LEVEL 1.8 MG/DL (1.8-2.4); PHOSPHORUS LEVEL 4.6 MG/DL (2.5-4.9); POTASSIUM SERUM 6.0 MMOL/L (3.5-5.1); SODIUM LEVEL 138.0 MMOL/L (136-145)
[2025-07-21 11:59] LABS: ATYPICAL LYMPH 3 % (0-5); BASOPHILS 1 % (0-1); EOSINOPHILS 16 % (0-3); LYMPHOCYTES 27 % (16-44); MONOCYTES 6 % (0-5); NEUTROPHILS 47 % (28-66); PLATELET ESTIMATE NORMAL (NORMAL)
[2025-07-21 12:23] LABS: TOTAL PROTEIN,RANDOM URINE < 6.0 MG/DL (0.0-14.0)
== END ==
LOC: M LAB 09:33
PROVIDERS: ATTEND Internal Medicine
DX: Z94.0 Kidney transplant status (principal); N18.5 Chronic kidney disease, stage 5; D64.9 Anemia, unspecified; Z79.899 Other long term (current) drug therapy

== ENCOUNTER 2025-07-22 14:52 | Emergency (ER) | payer MEDICARE, MEDICAID ==
[~2025-07-22] VITALS: Ht 165.1 cm; Wt 73.3 kg
[~2025-07-22 14:52] MED LIST changes: -CARV12.5; -TORS20TA2
[2025-07-22] MEDS ORDERED: CARV12.5 (15:10)
[2025-07-22] MEDS ORDERED: TORS20TA2 (15:10)
[2025-07-22 16:23] LABS: PLATELET COUNT, AUTOMATED 237 10^3/uL (150-450)
[2025-07-22 16:57] LABS: ATYPICAL LYMPH 1 % (0-5); BASOPHILS 1 % (0-1); EOSINOPHILS 15 % (0-3); LYMPHOCYTES 30 % (16-44); MONOCYTES 4 % (0-5); NEUTROPHILS 48 % (28-66); PLATELET ESTIMATE NORMAL (NORMAL)
[2025-07-22 17:09] LABS: ALT/SGPT 149 U/L (7.0-40); AST/SGOT 122 U/L (<34); CALCIUM LEVEL 9.8 MG/DL (8.5-10.1); CARBON DIOXIDE LEVEL 20 MMOL/L (20-31); CHLORIDE LEVEL 107 MMOL/L (98-107); CREATININE FOR GFR 1.89 MG/DL (0.55-1.30); GLOMERULAR FILTRATION RATE 30.2 (>51); MAGNESIUM LEVEL 1.8 MG/DL (1.8-2.4); POTASSIUM SERUM 5.5 MMOL/L (3.5-5.1); SODIUM LEVEL 137 MMOL/L (136-145)
[2025-07-22 18:27] VITALS: BP 126/60; TEMP 97.1; O2SAT 100
== END 2025-07-22 18:34 | disposition home or self-care (01) ==
LOC: M ED 14:52
DX: E87.5 Hyperkalemia (principal); J45.909 Unspecified asthma, uncomplicated; Z88.1 Allergy status to other antibiotic agents; Z88.6 Allergy status to analgesic agent; Z91.09 Other allergy status, other than to drugs and biological substances; Z79.1 Long term (current) use of non-steroidal anti-inflammatories (NSAID); Z79.51 Long term (current) use of inhaled steroids; Z79.899 Other long term (current) drug therapy; Z79.810 Long term (current) use of selective estrogen receptor modulators (SERMs)

== ENCOUNTER 2025-07-29 16:17 | Emergency (ER) | payer MEDICARE, MEDICAID ==
[~2025-07-29] VITALS: Ht 165.1 cm; Wt 73.9 kg
[2025-07-29 17:14] LABS: BASO # 0.1 10^3/uL (0.0-0.2); BASO % 1.0 % (0.0-1.0); EOS # 0.9 10^3/uL (0.0-0.5); EOS % 13.1 % (0.0-3.0); LYMPH # 2.0 10^3/uL (1.5-5.0); LYMPH % 27.5 % (24.0-44.0); MONO # 0.6 10^3/uL (0.0-0.8); MONO % 8.3 % (2.0-8.0); NEUTROPHILS # 3.6 10^3/uL (1.5-8.5); NEUTROPHILS % 49.8 % (36.0-66.0); PLATELET COUNT, AUTOMATED 270 10^3/uL (150-450)
[2025-07-29 17:36] LABS: ALT/SGPT 76.0 U/L (7.0-40); AST/SGOT 38.0 U/L (<34); CALCIUM LEVEL 10.2 MG/DL (8.5-10.1); CARBON DIOXIDE LEVEL 22.0 MMOL/L (20-31); CHLORIDE LEVEL 106.0 MMOL/L (98-107); CREATININE FOR GFR 1.68 MG/DL (0.55-1.30); GLOMERULAR FILTRATION RATE 34.8 (>51); POTASSIUM SERUM 4.9 MMOL/L (3.5-5.1); SODIUM LEVEL 138.0 MMOL/L (136-145)
[2025-07-29 19:04] VITALS: TEMP 97.8
[2025-07-29 19:13] VITALS: BP 130/63; O2SAT 99
== END 2025-07-29 19:32 | disposition home or self-care (01) ==
LOC: M ED 16:17
DX: E87.5 Hyperkalemia (principal); N18.5 Chronic kidney disease, stage 5; D84.9 Immunodeficiency, unspecified; Z94.0 Kidney transplant status; Z79.899 Other long term (current) drug therapy; Z88.1 Allergy status to other antibiotic agents; Z88.6 Allergy status to analgesic agent; Z91.09 Other allergy status, other than to drugs and biological substances; Z79.810 Long term (current) use of selective estrogen receptor modulators (SERMs)

== ENCOUNTER → 2025-07-29 | Outpatient (CLI) | payer MEDICARE, MEDICAID ==
[~2025-07-29] MED LIST changes: +CARV12.5; +TORS20TA2
[2025-07-29 10:52] LABS: APPEARANCE, URINE CLEAR (CLEAR); BACTERIA, URINE AUTO 1+ (NEGATIVE); BASO # 0.1 10^3/uL (0.0-0.2); BASO % 0.9 % (0.0-1.0); BILIRUBIN, URINE AUTO NEGATIVE (NEGATIVE); BLOOD, URINE BLOOD NEGATIVE (NEGATIVE); EOS # 0.8 10^3/uL (0.0-0.5); EOS % 11.4 % (0.0-3.0); GLUCOSE, URINE (UA) AUTO NEGATIVE (NEGATIVE); KETONE, URINE AUTO NEGATIVE (NEGATIVE); LEUKOCYTE ESTERASE, URINE AUTO TRACE (NEGATIVE); LYMPH # 1.3 10^3/uL (1.5-5.0); LYMPH % 19.4 % (24.0-44.0); MONO # 0.6 10^3/uL (0.0-0.8); MONO % 9.3 % (2.0-8.0); MUCUS, URINE SMALL (NEGATIVE); NEUTROPHILS # 4.0 10^3/uL (1.5-8.5); NEUTROPHILS % 58.7 % (36.0-66.0); NITRITE, URINE AUTO NEGATIVE (NEGATIVE); PLATELET COUNT, AUTOMATED 242 10^3/uL (150-450); PROTEIN, URINE AUTO NEGATIVE (NEGATIVE); RBC, URINE AUTO 1 /HPF (0-3); SPECIFIC GRAVITY URINE AUTO 1.015 (1.002-1.035); SQUAMOUS EPITHELIAL CELL UR AU 0 /HPF (0-6); UROBILINOGEN, URINE AUTO 0.2 mg/dL (0.0-2.0); WBC, URINE AUTO 2 /HPF (0-3)
[2025-07-29 11:34] LABS: ALT/SGPT 76.0 U/L (7.0-40); AST/SGOT 39.0 U/L (<34); CALCIUM LEVEL 9.9 MG/DL (8.5-10.1); CARBON DIOXIDE LEVEL 21.0 MMOL/L (20-31); CHLORIDE LEVEL 106.0 MMOL/L (98-107); CREATININE FOR GFR 1.76 MG/DL (0.55-1.30); GLOMERULAR FILTRATION RATE 32.9 (>51); MAGNESIUM LEVEL 2.1 MG/DL (1.8-2.4); PHOSPHORUS LEVEL 5.3 MG/DL (2.5-4.9); POTASSIUM SERUM 6.1 MMOL/L (3.5-5.1); SODIUM LEVEL 136.0 MMOL/L (136-145)
[2025-07-29 13:19] LABS: TOTAL PROTEIN,RANDOM URINE 13.6 MG/DL (0.0-14.0)
[2025-07-29 15:23] LABS: ESTIMATED AVERAGE GLUCOSE 166.0 MG/DL (60-110)
== END ==
LOC: M LAB 09:41
PROVIDERS: ATTEND Internal Medicine
DX: E87.5 Hyperkalemia (principal); N18.5 Chronic kidney disease, stage 5; D84.9 Immunodeficiency, unspecified; Z94.0 Kidney transplant status; Z79.899 Other long term (current) drug therapy

== ENCOUNTER 2025-09-02 17:09 | Emergency (ER) | payer MEDICARE, MEDICAID ==
[~2025-09-02] VITALS: Ht 162.6 cm; Wt 61.2 kg
[~2025-09-02 17:09] MED LIST changes: -DOCU8.6T PO; +SENN-208 PO
[2025-09-02 19:14] LABS: PLATELET COUNT, AUTOMATED 264 10^3/uL (150-450)
[2025-09-02 19:28] LABS: AMPHETAMINES LEVEL URINE NEGATIVE (NEGATIVE); BARBITURATES URINE NEGATIVE (NEGATIVE); CANNABINOIDS URINE NEGATIVE (NEGATIVE); COCAINE METABOLITE URINE NEGATIVE (NEGATIVE); METHADONE URINE NEGATIVE (NEGATIVE); OPIATES URINE NEGATIVE (NEGATIVE); PHENCYCLIDINE URINE NEGATIVE (NEGATIVE)
[2025-09-02 19:29] LABS: BENZODIAZEPINES URINE NEGATIVE (NEGATIVE)
[2025-09-02 19:30] LABS: ETHYL ALCOHOL (ETHANOL) < 0.003 % (0.000-0.010)
[2025-09-02 19:32] LABS: ALT/SGPT 13 U/L (7.0-40); AST/SGOT 11 U/L (<34); CALCIUM LEVEL 10.7 MG/DL (8.5-10.1); CARBON DIOXIDE LEVEL 27 MMOL/L (20-31); CHLORIDE LEVEL 96 MMOL/L (98-107); CREATININE FOR GFR 1.88 MG/DL (0.55-1.30); GLOMERULAR FILTRATION RATE 30.4 (>51); POTASSIUM SERUM 4.6 MMOL/L (3.5-5.1); SALICYLATE LEVEL < 3.0 MG/DL (<30); SODIUM LEVEL 134 MMOL/L (136-145)
[2025-09-02 19:50] VITALS: BP 103/50; TEMP 97.9; O2SAT 99
== END 2025-09-02 20:56 | disposition left against medical advice (07) ==
LOC: M ED 17:09
DX: Z53.21 Procedure and treatment not carried out due to patient leaving prior to being seen by health care provider (principal)